=== PATIENT | female | born 1970 | race American Indian/Alaskan Native ===

== ENCOUNTER 2020-10-30 16:19 | Emergency (ER) | payer MEDICAID ==
[~2020-10-30] VITALS: Ht 157.5 cm; Wt 90.0 kg
[~2020-10-30 16:19] MED LIST: ALBU8HFA PO; ARIP2TAB5 PO; AZIT250T PO; BENZ-38 PO; CHLO118M2 PO; DIPH-423 PO; GABA100C PO; HYDR-4383 PO; HYDR30CR79 TOP; IBUP-1984 PO; ONDA4TAB6 PO; POLY17PO10 PO; QUET-1 PO; VENL25TA48 PO; ZOF4T PO
[2020-10-30] MEDS ORDERED: methylPREDNISolone sod succ 125mg/2ml vial IV ONE (16:35)
[2020-10-30] MEDS ORDERED: ipratropium/albuterol 3ml nebule NEB ONE (16:35)
[2020-10-30] MEDS ORDERED: albuterol 2.5 MG/3 ML nebule NEB ONE ×2 (16:35→17:25)
[2020-10-30 16:56] LABS: BASOPHILS # (AUTO) 0.1 X10'3 (0-0.2); BASOPHILS % (AUTO) 0.5 % (0-1); EOSINOPHILS % (AUTO) 0.4 % (0-6); HEMATOCRIT 46.9 % (35.0-45.0); HEMOGLOBIN 15.4 g/dl (12.0-16.0); LYMPHOCYTES # (AUTO) 1.3 X10'3 (1.1-4.8); LYMPHOCYTES % (AUTO) 11.6 % (21-51); MEAN CORPUSCULAR HEMOGLOBIN 31.8 PG (27.0-31.0); MEAN CORPUSCULAR HGB CONC 32.9 g/dL (33.0-36.5); MEAN CORPUSCULAR VOLUME 96.7 FL (78-98); MEAN PLATELET VOLUME 8.3 FL (7.4-10.4); MONOCYTES # (AUTO) 0.8 X10'3 (0-0.9); MONOCYTES % (AUTO) 7.3 % (2-12); NEUTROPHILS # (AUTO) 9.3 X10'3 (1.8-7.7); NEUTROPHILS % (AUTO) 80.2 % (42-75); PLATELET COUNT 248 X10'3 (140-440); RED BLOOD COUNT 4.85 X10'6 (4.20-5.60); RED CELL DISTRIBUTION WIDTH 14.8 % (11.5-14.5); WHITE BLOOD COUNT 11.5 X10'3 (4.5-11.0)
[2020-10-30 17:05] LABS: ALANINE AMINOTRANSFERASE 17 U/L (12-78); ALBUMIN/GLOBULIN RATIO 0.9 (1.1-1.5); ALKALINE PHOSPHATASE 109 IU/L (46-116); ANION GAP 5 (8-16); ASPARTATE AMINO TRANSFERASE 21 U/L (10-37); BILIRUBIN,TOTAL 0.2 MG/DL (0.1-1.0); BLOOD UREA NITROGEN 8 MG/DL (7-18); BUN/CREATININE RATIO 11.3 (6.6-38.0); CALCIUM 8.6 MG/DL (8.5-10.1); CHLORIDE 97 MMOL/L (99-107); CREATININE 0.71 MG/DL (0.40-0.90); GLUCOSE 114 MG/DL (70-104); POTASSIUM 4.4 MMOL/L (3.5-5.1); SODIUM 140 MMOL/L (135-145); TOTAL CARBON DIOXIDE 37.7 MMOL/L (24-32); TOTAL PROTEIN 8.3 G/DL (6.4-8.2); eGFR 88 ML/MIN
[2020-10-30] MEDS ORDERED: LEVO500T89 PO (20:20)
[2020-10-30] MEDS ORDERED: PRED20TA PO (20:20)
[2020-10-30] MEDS ORDERED: levoFLOXACIN 250mg tablet PO ONE (20:20)
[2020-10-30 20:41] VITALS: BP 135/81
== END 2020-10-30 20:53 | disposition home or self-care (01) ==
LOC: ER 16:20
DX: J44.1 Chronic obstructive pulmonary disease with (acute) exacerbation (principal); Z20.822 Contact with and (suspected) exposure to COVID-19; R06.02 Shortness of breath; G89.29 Other chronic pain; F31.9 Bipolar disorder, unspecified; F12.90 Cannabis use, unspecified, uncomplicated; Z87.01 Personal history of pneumonia (recurrent); Z98.890 Other specified postprocedural states; Z60.2 Problems related to living alone; Z56.0 Unemployment, unspecified; Z72.89 Other problems related to lifestyle; Z88.0 Allergy status to penicillin; Z79.2 Long term (current) use of antibiotics; Z79.899 Other long term (current) drug therapy
CPT/HCPCS: 36415; 71045; 80053; 83880; 84484; 85025; 87635; 93005; 94640; 96374; 99285; C9803; J2930; 94760

== ENCOUNTER 2021-12-17 21:58 | Emergency (ER) | payer MEDICAID ==
[~2021-12-17] VITALS: Ht 157.5 cm; Wt 73.6 kg
[2021-12-17 22:06] VITALS: BP 157/99
== END 2021-12-18 00:05 | disposition left against medical advice (07) ==
LOC: ER 21:58
DX: R06.02 Shortness of breath (principal); Z53.21 Procedure and treatment not carried out due to patient leaving prior to being seen by health care provider

== ENCOUNTER 2022-03-12 18:15 | Emergency (ER) | payer MEDICAID ==
[~2022-03-12] VITALS: Ht 157.5 cm; Wt 72.7 kg
[2022-03-12 18:38] VITALS: BP 152/87
== END 2022-03-12 20:15 | disposition left against medical advice (07) ==
LOC: ER 18:15
DX: M25.512 Pain in left shoulder (principal); Z53.21 Procedure and treatment not carried out due to patient leaving prior to being seen by health care provider
CPT/HCPCS: 73030

== ENCOUNTER 2022-04-11 22:42 | Emergency (ER) | payer MEDICAID ==
[~2022-04-11] VITALS: Ht 157.5 cm; Wt 72.3 kg
[2022-04-11 23:26] LABS: BASOPHILS # (AUTO) 0.1 X10'3 (0-0.2); BASOPHILS % (AUTO) 0.4 % (0-1); EOSINOPHILS # (AUTO) 0.1 X10'3 (0-0.9); EOSINOPHILS % (AUTO) 0.5 % (0-6); HEMATOCRIT 43.2 % (35.0-45.0); HEMOGLOBIN 14.6 g/dl (12.0-16.0); LYMPHOCYTES # (AUTO) 2.5 X10'3 (1.1-4.8); LYMPHOCYTES % (AUTO) 15.2 % (21-51); MEAN CORPUSCULAR HGB CONC 33.8 g/dL (33.0-36.5); MEAN CORPUSCULAR VOLUME 88.5 FL (78-98); MEAN PLATELET VOLUME 9.1 FL (7.4-10.4); MONOCYTES # (AUTO) 1.2 X10'3 (0-0.9); MONOCYTES % (AUTO) 7.1 % (2-12); NEUTROPHILS # (AUTO) 12.5 X10'3 (1.8-7.7); NEUTROPHILS % (AUTO) 76.8 % (42-75); PLATELET COUNT 261 X10'3 (140-440); RED BLOOD COUNT 4.88 X10'6 (4.20-5.60); RED CELL DISTRIBUTION WIDTH 14.2 % (11.5-14.5); WHITE BLOOD COUNT 16.2 X10'3 (4.5-11.0)
[2022-04-12 00:28] LABS: ALANINE AMINOTRANSFERASE 24 U/L (12-78); ALBUMIN 2.8 G/DL (3.4-5.0); ALBUMIN/GLOBULIN RATIO 0.5 (1.1-1.5); ALKALINE PHOSPHATASE 100 IU/L (46-116); ANION GAP 9 (8-16); ASPARTATE AMINO TRANSFERASE 19 U/L (10-37); BILIRUBIN,TOTAL 0.2 MG/DL (0.1-1.0); BLOOD UREA NITROGEN 7 MG/DL (7-18); BUN/CREATININE RATIO 12.5 (6.6-38.0); CALCIUM 9.9 MG/DL (8.5-10.1); CHLORIDE 100 MMOL/L (99-107); CREATININE 0.56 MG/DL (0.40-0.90); GLUCOSE 106 MG/DL (70-104); POTASSIUM 3.7 MMOL/L (3.5-5.1); SODIUM 144 MMOL/L (135-145); TOTAL CARBON DIOXIDE 34.9 MMOL/L (24-32); TOTAL PROTEIN 8.1 G/DL (6.4-8.2); eGFR > 90 ML/MIN
[2022-04-12] MEDS ORDERED: albuterol 2.5 MG/3 ML nebule CONTNEB STA (00:44)
[2022-04-12] MEDS ORDERED: CefTRIAXone/D5W-Rocephin 1gm 50 ML IV ONE (00:45)
[2022-04-12] MEDS ORDERED: normal saline 1000ML IV soln IVB ONE (00:45)
[2022-04-12] MEDS ORDERED: methylPREDNISolone sod succ 125mg/2ml vial IV ONE (00:45)
[2022-04-12] MEDS ORDERED: ipratropium 0.5 MG/2.5ML nebule IH ONE (00:45)
[2022-04-12] MEDS ORDERED: iohexol 350MG/ML 100ml bottle IV ONE (03:47)
[2022-04-12] MEDS ORDERED: AMOX-117 PO ×2 (05:07)
[2022-04-12] MEDS ORDERED: amox tr/potassium clavulanate 875/125mg TAB PO ONE (05:10)
[2022-04-12] MEDS ORDERED: LEVO750T68 PO ×4 (05:12→05:31)
[2022-04-12 05:19] VITALS: BP 127/82
== END 2022-04-12 05:44 | disposition home or self-care (01) ==
LOC: ER 22:43
DX: J44.1 Chronic obstructive pulmonary disease with (acute) exacerbation (principal); J18.9 Pneumonia, unspecified organism; R06.02 Shortness of breath; R09.81 Nasal congestion; R05.9 Cough, unspecified; G89.29 Other chronic pain; F31.9 Bipolar disorder, unspecified; F17.200 Nicotine dependence, unspecified, uncomplicated; F12.90 Cannabis use, unspecified, uncomplicated; Z87.01 Personal history of pneumonia (recurrent); Z98.890 Other specified postprocedural states; Z72.89 Other problems related to lifestyle; Z60.2 Problems related to living alone; Z56.0 Unemployment, unspecified; Z88.0 Allergy status to penicillin; Z79.2 Long term (current) use of antibiotics; Z79.899 Other long term (current) drug therapy
CPT/HCPCS: 36415; 71045; 71275; 80053; 83605; 84484; 85025; 85379; 93005; 94640; 94644; 96365; 96375; 99285; J0696; J2930; J3490; J7030; Q9967; 94760; A7015

== ENCOUNTER 2022-04-20 00:55 | Inpatient (IN) | payer MEDICAID ==
[~2022-04-20] VITALS: Ht 157.5 cm; Wt 72.3 kg
[~2022-04-20 00:55] MED LIST changes: +LEVO750T68 PO
--- NOTE | 2022-04-20 04:00 | NUR ---
pt to rm at 0345, rec report from triage nurse and assumed care of pt. Pt diaphoretic, c/o left intermittent chest pain x 2 days with nausea and SOB. Pt rec dx with pneumonia and reports not feeling better dispite antibiotics. resp 32, spo2 96% 4L via NC, abd breathing, tripod position, wheezing throughout lung gonsalves. ER MD at bedside, EKG obtained, PIV placed to right forearm and blood drawn
[2022-04-20 04:29] LABS: BASOPHILS # (AUTO) 0.2 X10'3 (0-0.2); BASOPHILS % (AUTO) 0.8 % (0-1); EOSINOPHILS # (AUTO) 0.1 X10'3 (0-0.9); EOSINOPHILS % (AUTO) 0.4 % (0-6); HEMATOCRIT 42.7 % (35.0-45.0); HEMOGLOBIN 13.7 g/dl (12.0-16.0); LYMPHOCYTES # (AUTO) 2.3 X10'3 (1.1-4.8); LYMPHOCYTES % (AUTO) 10.5 % (21-51); MEAN CORPUSCULAR HEMOGLOBIN 29.3 PG (27.0-31.0); MEAN CORPUSCULAR HGB CONC 32.2 g/dL (33.0-36.5); MEAN CORPUSCULAR VOLUME 90.8 FL (78-98); MEAN PLATELET VOLUME 8.6 FL (7.4-10.4); MONOCYTES % (AUTO) 4.4 % (2-12); NEUTROPHILS # (AUTO) 18.6 X10'3 (1.8-7.7); NEUTROPHILS % (AUTO) 83.9 % (42-75); PLATELET COUNT 331 X10'3 (140-440); RED CELL DISTRIBUTION WIDTH 14.3 % (11.5-14.5); WHITE BLOOD COUNT 22.2 X10'3 (4.5-11.0)
[2022-04-20] MEDS ORDERED: normal saline 1000ml 1,000 ML IV ONE (04:35)
[2022-04-20 04:55] LABS: ALANINE AMINOTRANSFERASE 20 U/L (12-78); ALBUMIN 3.1 G/DL (3.4-5.0); ALBUMIN/GLOBULIN RATIO 0.7 (1.1-1.5); ALKALINE PHOSPHATASE 89 IU/L (46-116); ANION GAP 2 (8-16); ASPARTATE AMINO TRANSFERASE 17 U/L (10-37); BILIRUBIN,TOTAL 0.2 MG/DL (0.1-1.0); BLOOD UREA NITROGEN 11 MG/DL (7-18); BUN/CREATININE RATIO 22.9 (6.6-38.0); CALCIUM 9.6 MG/DL (8.5-10.1); CHLORIDE 97 MMOL/L (99-107); CREATININE 0.48 MG/DL (0.40-0.90); GLUCOSE 112 MG/DL (70-104); SODIUM 142 MMOL/L (135-145); TOTAL PROTEIN 7.6 G/DL (6.4-8.2); eGFR > 90 ML/MIN
[2022-04-20 04:58] LABS: POTASSIUM 4.6 MMOL/L (3.5-5.1); TOTAL CARBON DIOXIDE 43.5 MMOL/L (24-32)
[2022-04-20] MEDS ORDERED: ipratropium/albuterol 3ml nebule NEB ONE (05:00)
[2022-04-20] MEDS ORDERED: albuterol 2.5 MG/3 ML nebule NEB ONE (05:00)
[2022-04-20 05:27] LABS: ABG BASE EXCESS 9.5 mmol/L (-2.0-2.0); ABG HCO3 40.8 mmol/L (22.0-26.0); ABG OXYGEN SATURATION 94.3 % (94-97); ABG PCO2 (T) 94.8 mmHg (32.0-45.0); ABG PO2 (T) 77.9 mmHg (75.0-100.0); ALLEN'S TEST POSITIVE; FCOHb 2.6 % (0.0-3.9); FMetHb 0.1 % (0.0-1.5); FO2Hb 91.8 % (94-97); TOTAL HEMOGLOBIN 14.2 G/dl (12.0-16.0)
[2022-04-20] MEDS ORDERED: levoFLOXACIN-Levaquin 750MG/D5 150 ML IV STA (05:42)
[2022-04-20] MEDS ORDERED: methylPREDNISolone sod succ 125mg/2ml vial IV ONE (10:25)
[2022-04-20] MEDS ORDERED: acetaminophen 325mg tablet PO PRN (10:25)
[2022-04-20] MEDS ORDERED: potassium Cl 40MEQ/1/2NS 520ml 520 ML IV PRN (10:25)
[2022-04-20] MEDS ORDERED: normal saline 1000ml 1,000 ML IV SCH (10:25)
[2022-04-20] MEDS ORDERED: magnesium hydroxide 30ml (MOM) UD suspension PO PRN (10:25)
[2022-04-20] MEDS ORDERED: magnesium 4gm in 100ml NS 100 ML IV PRN (10:25)
[2022-04-20] MEDS ORDERED: potassium Cl 20 mEq SR tablet PO PRN ×2 (10:25)
[2022-04-20] MEDS ORDERED: magnesium Cl slow-release 64mg tablet PO PRN (10:25)
[2022-04-20 10:42] LABS: MAGNESIUM 2.1 MG/DL (1.5-2.4)
[2022-04-20] MEDS ORDERED: ALBU17AE26 NEB (11:05)
[2022-04-20] MEDS ORDERED: DULO60CA65 (11:05)
[2022-04-20] MEDS ORDERED: IPRA3AMP31 NEB (11:05)
[2022-04-20] MEDS ORDERED: LEVO200T8 PO (11:05)
[2022-04-20] MEDS ORDERED: CHOL500050 PO (11:05)
[2022-04-20] MEDS ORDERED: IBUP-1985 PO (11:05)
[2022-04-20] MEDS: ipratropium/albuterol 3ml nebule NEB SCH ×4 (11:48→22:48)
--- NOTE | 2022-04-20 14:16 | NUR ---
PT HAS GIVEN PERMISSION FOR HER SISTER, JACQUES MCDONNELL, TO RECEIVED INFORMATION REGARDING PT STATUS DURING HER CURRENT HOSPITAL STAY
[2022-04-20] MEDS: enoxaparin 30mg/0.3ml syringe SQ SCH (19:13)
[2022-04-20] MEDS: methylPREDNISolone sod succ 125mg/2ml vial IV SCH (19:13)
[2022-04-20] MEDS: docusate sod 100mg capsule PO SCH (19:14)
[2022-04-20] MEDS: K and/or MAG REPLACEMENT MC SCH (19:14)
[2022-04-21] MEDS: ipratropium/albuterol 3ml nebule NEB SCH ×6 (02:43→23:12)
[2022-04-21 02:58] LABS: ALBUMIN 2.8 G/DL (3.4-5.0); ANION GAP -2 (8-16); BLOOD UREA NITROGEN 20 MG/DL (7-18); BUN/CREATININE RATIO 32.3 (6.6-38.0); CALCIUM 9.2 MG/DL (8.5-10.1); CHLORIDE 96 MMOL/L (99-107); CREATININE 0.62 MG/DL (0.40-0.90); GLUCOSE 123 MG/DL (70-104); MAGNESIUM 1.9 MG/DL (1.5-2.4); POTASSIUM 4.3 MMOL/L (3.5-5.1); SODIUM 136 MMOL/L (135-145); eGFR > 90 ML/MIN
[2022-04-21 03:00] LABS: TOTAL CARBON DIOXIDE 41.9 MMOL/L (24-32)
[2022-04-21 03:31] LABS: BASOPHILS % (AUTO) 0.5 % (0-1); EOSINOPHILS % (AUTO) 0 % (0-6); HEMATOCRIT 36.9 % (35.0-45.0); LYMPHOCYTES # (AUTO) 0.6 X10'3 (1.1-4.8); LYMPHOCYTES % (AUTO) 5.9 % (21-51); MEAN CORPUSCULAR HEMOGLOBIN 29.4 PG (27.0-31.0); MEAN CORPUSCULAR HGB CONC 32.7 g/dL (33.0-36.5); MEAN CORPUSCULAR VOLUME 90.2 FL (78-98); MEAN PLATELET VOLUME 9.1 FL (7.4-10.4); MONOCYTES # (AUTO) 0.2 X10'3 (0-0.9); MONOCYTES % (AUTO) 1.7 % (2-12); NEUTROPHILS # (AUTO) 9.3 X10'3 (1.8-7.7); NEUTROPHILS % (AUTO) 91.9 % (42-75); PLATELET COUNT 302 X10'3 (140-440); RED BLOOD COUNT 4.09 X10'6 (4.20-5.60); WHITE BLOOD COUNT 10.1 X10'3 (4.5-11.0)
[2022-04-21 07:15] VITALS: BP 139/89
[2022-04-21] MEDS: K and/or MAG REPLACEMENT MC SCH ×2 (08:00→19:14)
[2022-04-21] MEDS: docusate sod 100mg capsule PO SCH ×2 (09:26→19:29)
[2022-04-21] MEDS: methylPREDNISolone sod succ 125mg/2ml vial IV SCH ×2 (09:26→19:29)
[2022-04-21] MEDS: levoFLOXACIN-Levaquin 750MG/D5 150 ML IV SCH (09:26)
[2022-04-21] MEDS: enoxaparin 30mg/0.3ml syringe SQ SCH ×2 (09:27→19:30)
[2022-04-21 10:46] LABS: ABG BASE EXCESS 15.7 mmol/L (-2.0-2.0); ABG HCO3 43.3 mmol/L (22.0-26.0); ABG OXYGEN SATURATION 95.7 % (94-97); ABG PCO2 (T) 66.9 mmHg (32.0-45.0); ALLEN'S TEST POSITIVE; FCOHb 0.3 % (0.0-3.9); FLOW 4 L/min; FMetHb 0.3 % (0.0-1.5); FO2Hb 95.1 % (94-97); TOTAL HEMOGLOBIN 13.2 G/dl (12.0-16.0)
[2022-04-21 11:00] VITALS: BP 107/68
[2022-04-21 15:00] VITALS: BP 133/85
[2022-04-21 18:00] VITALS: BP 118/78
[2022-04-21 22:00] VITALS: BP 129/86
--- NOTE | 2022-04-22 01:01 | NUR ---
Pt. is awake alert oriented inspiratory wheezes audible.RT in to give breathing Tx. Pt. is able to describe events of the day. Able to pivot to BSC with assistance states is constipated prune juice and laxative given. Placed on BIPAP overnight tolerating in 2 hour increments. No c/o pain.
[2022-04-22 02:37] VITALS: BP 119/81
[2022-04-22] MEDS: ondansetron/PF 4mg/2ml inj IV PRN (02:45)
[2022-04-22] MEDS: mag hydrox/Alum hydrox/simeth 30ml oral suspension PO PRN (02:45)
[2022-04-22] MEDS: ipratropium/albuterol 3ml nebule NEB SCH ×6 (02:45→23:37)
[2022-04-22 07:00] VITALS: BP 117/72
[2022-04-22 08:41] LABS: HEMOGLOBIN 13.4 g/dl (12.0-16.0); RED BLOOD COUNT 4.51 X10'6 (4.20-5.60); WHITE BLOOD COUNT 15.8 X10'3 (4.5-11.0)
[2022-04-22 08:42] LABS: BASOPHILS # (AUTO) 0.1 X10'3 (0-0.2); BASOPHILS % (AUTO) 0.6 % (0-1); EOSINOPHILS % (AUTO) 0.1 % (0-6); HEMATOCRIT 40.4 % (35.0-45.0); LYMPHOCYTES # (AUTO) 1.1 X10'3 (1.1-4.8); MEAN CORPUSCULAR HEMOGLOBIN 29.6 PG (27.0-31.0); MEAN CORPUSCULAR VOLUME 89.7 FL (78-98); MEAN PLATELET VOLUME 8.3 FL (7.4-10.4); MONOCYTES # (AUTO) 0.4 X10'3 (0-0.9); MONOCYTES % (AUTO) 2.5 % (2-12); NEUTROPHILS # (AUTO) 14.2 X10'3 (1.8-7.7); NEUTROPHILS % (AUTO) 89.8 % (42-75); PLATELET COUNT 324 X10'3 (140-440); RED CELL DISTRIBUTION WIDTH 14.9 % (11.5-14.5)
[2022-04-22 08:48] LABS: ANION GAP 5 (8-16); BLOOD UREA NITROGEN 17 MG/DL (7-18); BUN/CREATININE RATIO 28.3 (6.6-38.0); CHLORIDE 96 MMOL/L (99-107); GLUCOSE 107 MG/DL (70-104); POTASSIUM 4.4 MMOL/L (3.5-5.1); SODIUM 135 MMOL/L (135-145); eGFR > 90 ML/MIN
[2022-04-22 08:49] LABS: ALBUMIN 3.1 G/DL (3.4-5.0); CALCIUM 9.5 MG/DL (8.5-10.1); MAGNESIUM 2.3 MG/DL (1.5-2.4)
[2022-04-22] MEDS: methylPREDNISolone sod succ 125mg/2ml vial IV SCH ×2 (09:09→19:18)
[2022-04-22] MEDS: enoxaparin 30mg/0.3ml syringe SQ SCH ×2 (09:10→19:22)
[2022-04-22] MEDS: docusate sod 100mg capsule PO SCH ×2 (09:10→19:18)
[2022-04-22] MEDS: levoFLOXACIN-Levaquin 750MG/D5 150 ML IV SCH (09:11)
[2022-04-22 11:00] VITALS: BP 101/62
[2022-04-22 15:00] VITALS: BP 105/78
[2022-04-22 18:00] VITALS: BP 117/72
[2022-04-22] MEDS: K and/or MAG REPLACEMENT MC SCH (20:00)
[2022-04-22 22:00] VITALS: BP 115/74
--- NOTE | 2022-04-22 23:56 | NUR ---
Pt. is awake alert oriented no c/o Resp distress today. Sitting up in chair, had bath and hair wash. Ready for home.
[2022-04-23 02:39] VITALS: BP 106/67
[2022-04-23] MEDS: ipratropium/albuterol 3ml nebule NEB SCH ×3 (03:32→11:46)
[2022-04-23] MEDS: mag hydrox/Alum hydrox/simeth 30ml oral suspension PO PRN (05:50)
[2022-04-23] MEDS: ondansetron/PF 4mg/2ml inj IV PRN (05:51)
[2022-04-23 06:00] VITALS: BP 95/56
[2022-04-23 07:02] LABS: BASOPHILS % (AUTO) 0.1 % (0-1); EOSINOPHILS % (AUTO) 0 % (0-6); HEMATOCRIT 38.6 % (35.0-45.0); HEMOGLOBIN 12.7 g/dl (12.0-16.0); LYMPHOCYTES % (AUTO) 14.5 % (21-51); MEAN CORPUSCULAR HEMOGLOBIN 29.3 PG (27.0-31.0); MEAN CORPUSCULAR HGB CONC 32.9 g/dL (33.0-36.5); MEAN CORPUSCULAR VOLUME 89.2 FL (78-98); MEAN PLATELET VOLUME 8.4 FL (7.4-10.4); MONOCYTES # (AUTO) 0.7 X10'3 (0-0.9); MONOCYTES % (AUTO) 4.9 % (2-12); NEUTROPHILS # (AUTO) 10.9 X10'3 (1.8-7.7); NEUTROPHILS % (AUTO) 80.5 % (42-75); PLATELET COUNT 325 X10'3 (140-440); RED BLOOD COUNT 4.32 X10'6 (4.20-5.60); RED CELL DISTRIBUTION WIDTH 14.5 % (11.5-14.5); WHITE BLOOD COUNT 13.6 X10'3 (4.5-11.0)
[2022-04-23] MEDS: K and/or MAG REPLACEMENT MC SCH (08:00)
[2022-04-23] MEDS: docusate sod 100mg capsule PO SCH (08:15)
[2022-04-23] MEDS: levoFLOXACIN-Levaquin 750MG/D5 150 ML IV SCH (08:16)
[2022-04-23] MEDS: methylPREDNISolone sod succ 125mg/2ml vial IV SCH (08:16)
[2022-04-23] MEDS: enoxaparin 30mg/0.3ml syringe SQ SCH (08:17)
[2022-04-23 08:18] LABS: ALBUMIN 2.5 G/DL (3.4-5.0); ANION GAP 5 (8-16); BLOOD UREA NITROGEN 16 MG/DL (7-18); BUN/CREATININE RATIO 26.2 (6.6-38.0); CALCIUM 9.2 MG/DL (8.5-10.1); CHLORIDE 98 MMOL/L (99-107); CREATININE 0.61 MG/DL (0.40-0.90); GLUCOSE 99 MG/DL (70-104); MAGNESIUM 2.1 MG/DL (1.5-2.4); POTASSIUM 4.4 MMOL/L (3.5-5.1); SODIUM 136 MMOL/L (135-145); TOTAL CARBON DIOXIDE 33.3 MMOL/L (24-32); eGFR > 90 ML/MIN
[2022-04-23] MEDS ORDERED: PRED10TA23 PO (10:26)
[2022-04-23] MEDS ORDERED: LEVO750T68 PO (10:26)
--- NOTE | 2022-04-23 13:57 | NUR ---
PATIENT DISCHARGED HOME WITH FAMILY. D/C INSTRUCTION GIVEN AND PATIENT VERBALIZED UNDERSTANDING.
== END 2022-04-23 13:45 | disposition home health service (06) | DRG 720 ==
LOC: ER 00:56 → ED HOLD 10:28 → EDBEDREQ 21:06 → PCU 3S 04-21 07:10
PROVIDERS: ADMIT Family Medicine; ATTEND Family Medicine
PROC: 5A09357 Assistance with Respiratory Ventilation, Less than 24 Consecutive Hours, Continuous Positive Airway Pressure (ICD-10-PCS; principal; 2022-04-20)
PROC: 5A09357 Assistance with Respiratory Ventilation, Less than 24 Consecutive Hours, Continuous Positive Airway Pressure (ICD-10-PCS; 2022-04-21)
DX: A41.9 Sepsis, unspecified organism (principal); J96.02 Acute respiratory failure with hypercapnia; E87.29 Other acidosis; J18.9 Pneumonia, unspecified organism; J44.0 Chronic obstructive pulmonary disease with (acute) lower respiratory infection; E03.9 Hypothyroidism, unspecified; K59.00 Constipation, unspecified; F31.9 Bipolar disorder, unspecified; Z60.2 Problems related to living alone; Z20.822 Contact with and (suspected) exposure to COVID-19; G47.30 Sleep apnea, unspecified; G89.29 Other chronic pain; M54.9 Dorsalgia, unspecified; F17.210 Nicotine dependence, cigarettes, uncomplicated; J44.1 Chronic obstructive pulmonary disease with (acute) exacerbation; Z88.0 Allergy status to penicillin; Z56.0 Unemployment, unspecified; Z79.899 Other long term (current) drug therapy; Z90.49 Acquired absence of other specified parts of digestive tract; Z71.6 Tobacco abuse counseling
CPT/HCPCS: 36415; 36600; 71045; 80048; 80053; 82803; 83605; 83735; 83880; 84145; 84484; 85018; 85025; 87040; 87502; 87503; 87635; 93005; 94640; 94660; 94760; 96361; 96365; 97116; 97161; 99285; A4615; C9803; G0378; J1650; J1956; J2405; J2930; J7030

== ENCOUNTER 2022-05-08 15:37 | Emergency (ER) | payer MEDICAID ==
[~2022-05-08] VITALS: Ht 157.5 cm; Wt 72.3 kg
[~2022-05-08 15:37] MED LIST changes: +ALBU17AE26 NEB; -ALBU8HFA PO; -ARIP2TAB5 PO; -AZIT250T PO; -BENZ-38 PO; -CHLO118M2 PO; +CHOL500050 PO; -DIPH-423 PO; +DULO60CA65; -GABA100C PO; -HYDR-4383 PO; -HYDR30CR79 TOP; -IBUP-1984 PO; +IBUP-1985 PO; +IPRA3AMP31 NEB; +LEVO200T8 PO; -LEVO750T68 PO; -ONDA4TAB6 PO; -POLY17PO10 PO; +PRED10TA23 PO; -QUET-1 PO; -VENL25TA48 PO; -ZOF4T PO
[2022-05-08 15:42] VITALS: BP 107/70
[2022-05-08 17:15] LABS: URINE HCG NEGATIVE (NEG)
[2022-05-08 17:27] LABS: CLARITY,URINE CLOUDY (Clear); COLOR,URINE YELLOW (Yellow); GLUCOSE, URINE NEGATIVE (Neg); KETONES,URINE NEGATIVE (Neg); LEUKOCYTE ESTERASE ,URINE SMALL (Neg); NITRITES, URINE NEGATIVE (Neg); OCCULT BLOOD,URINE MODERATE (Neg); PROTEIN,URINE NEGATIVE (Neg); UROBILINOGEN,URINE 0.2 E.U/dL (0.2-1.0)
[2022-05-08 17:34] LABS: UA COLLECTION TYPE NON-SPECIFIED
[2022-05-08 17:37] LABS: BACTERIA,URINE 2+ /HPF (Neg); MUCUS STRANDS MODERATE /LPF (Neg); SQUAMOUS EPITHELIAL CELL,UR MANY /LPF (FEW); WBC,URINE 0-4 /HPF (0-4)
[2022-05-08 19:06] LABS: CLARITY,URINE CLEAR (Clear); COLOR,URINE YELLOW (Yellow); GLUCOSE, URINE NEGATIVE (Neg); KETONES,URINE NEGATIVE (Neg); LEUKOCYTE ESTERASE ,URINE NEGATIVE (Neg); NITRITES, URINE NEGATIVE (Neg); OCCULT BLOOD,URINE TRACE-INTACT (Neg); PROTEIN,URINE NEGATIVE (Neg); UROBILINOGEN,URINE 0.2 E.U/dL (0.2-1.0)
[2022-05-08 19:23] LABS: UA COLLECTION TYPE FOLEY CATH
[2022-05-08 19:32] LABS: SQUAMOUS EPITHELIAL CELL,UR FEW /LPF (FEW)
[2022-05-08 19:33] LABS: BACTERIA,URINE NONE SEEN /HPF (Neg); RBC,URINE 0-2 /HPF (0-2); WBC,URINE 0-4 /HPF (0-4)
[2022-05-08 19:35] LABS: CAL OXALATE CRYSTALS FEW /HPF (NEGATIVE)
[2022-05-08] MEDS ORDERED: bisacodyl 10mg suppository rectal RC STA (20:16)
[2022-05-08] MEDS ORDERED: magnesium hydroxide 30ml (MOM) UD suspension PO ONE (20:20)
[2022-05-08] MEDS ORDERED: normal saline 1000ML IV soln IVB ONE (20:25)
--- NOTE | 2022-05-08 21:28 | NUR ---
PT REPORTS HAVING A SMALL BOWEL MOVEMENT
== END 2022-05-08 22:33 | disposition home or self-care (01) ==
LOC: ER 15:38
DX: R33.9 Retention of urine, unspecified (principal); K59.00 Constipation, unspecified; K64.9 Unspecified hemorrhoids; J44.9 Chronic obstructive pulmonary disease, unspecified; G89.29 Other chronic pain; F31.9 Bipolar disorder, unspecified; F17.200 Nicotine dependence, unspecified, uncomplicated; F12.90 Cannabis use, unspecified, uncomplicated; Z87.01 Personal history of pneumonia (recurrent); Z72.89 Other problems related to lifestyle; Z60.2 Problems related to living alone; Z56.0 Unemployment, unspecified; Z88.0 Allergy status to penicillin; Z79.899 Other long term (current) drug therapy
CPT/HCPCS: 51702; 74018; 81001; 81025; 96360; 99284; J7030

== ENCOUNTER 2022-05-10 00:57 | Emergency (ER) | payer MEDICAID ==
[~2022-05-10] VITALS: Ht 157.5 cm; Wt 72.3 kg
[~2022-05-10 00:57] MED LIST changes: -DULO60CA65; +DULO60CA65 PO
[2022-05-10 01:34] LABS: CLARITY,URINE CLEAR (Clear); COLOR,URINE YELLOW (Yellow); GLUCOSE, URINE NEGATIVE (Neg); KETONES,URINE NEGATIVE (Neg); LEUKOCYTE ESTERASE ,URINE NEGATIVE (Neg); NITRITES, URINE NEGATIVE (Neg); OCCULT BLOOD,URINE NEGATIVE (Neg); PH,URINE 6.5 (4.8-8.0); PROTEIN,URINE NEGATIVE (Neg); UROBILINOGEN,URINE 0.2 E.U/dL (0.2-1.0)
[2022-05-10 01:36] LABS: UA COLLECTION TYPE FOLEY CATH
[2022-05-10 01:43] LABS: URINE HCG NEGATIVE (NEG)
[2022-05-10 02:10] LABS: BASOPHILS # (AUTO) 0.1 X10'3 (0-0.2); BASOPHILS % (AUTO) 0.4 % (0-1); EOSINOPHILS # (AUTO) 0.2 X10'3 (0-0.9); EOSINOPHILS % (AUTO) 1.7 % (0-6); HEMATOCRIT 34.2 % (35.0-45.0); LYMPHOCYTES # (AUTO) 1.9 X10'3 (1.1-4.8); LYMPHOCYTES % (AUTO) 13.3 % (21-51); MEAN CORPUSCULAR HEMOGLOBIN 29.4 PG (27.0-31.0); MEAN CORPUSCULAR HGB CONC 32.3 g/dL (33.0-36.5); MEAN CORPUSCULAR VOLUME 91.1 FL (78-98); MEAN PLATELET VOLUME 7.7 FL (7.4-10.4); MONOCYTES # (AUTO) 0.8 X10'3 (0-0.9); MONOCYTES % (AUTO) 5.4 % (2-12); NEUTROPHILS # (AUTO) 11.3 X10'3 (1.8-7.7); NEUTROPHILS % (AUTO) 79.2 % (42-75); PLATELET COUNT 260 X10'3 (140-440); RED BLOOD COUNT 3.75 X10'6 (4.20-5.60); WHITE BLOOD COUNT 14.3 X10'3 (4.5-11.0)
[2022-05-10 02:21] LABS: APTT 29 SECONDS (22-32)
[2022-05-10 02:31] LABS: ALANINE AMINOTRANSFERASE 17 U/L (12-78); ALBUMIN 2.7 G/DL (3.4-5.0); ALBUMIN/GLOBULIN RATIO 0.7 (1.1-1.5); ALKALINE PHOSPHATASE 74 IU/L (46-116); ANION GAP 2 (8-16); ASPARTATE AMINO TRANSFERASE 21 U/L (10-37); BILIRUBIN,TOTAL 0.2 MG/DL (0.1-1.0); BLOOD UREA NITROGEN 14 MG/DL (7-18); BUN/CREATININE RATIO 26.9 (6.6-38.0); CALCIUM 8.4 MG/DL (8.5-10.1); CHLORIDE 99 MMOL/L (99-107); CREATININE 0.52 MG/DL (0.40-0.90); GLUCOSE 100 MG/DL (70-104); MAGNESIUM 2.1 MG/DL (1.5-2.4); POTASSIUM 3.7 MMOL/L (3.5-5.1); SODIUM 135 MMOL/L (135-145); TOTAL CARBON DIOXIDE 33.6 MMOL/L (24-32); TOTAL PROTEIN 6.5 G/DL (6.4-8.2); eGFR > 90 ML/MIN
[2022-05-10] MEDS ORDERED: iohexol 300mg/ml 100ml inj. ONE (04:08)
[2022-05-10 05:56] VITALS: BP 123/87
[2022-05-10] MEDS ORDERED: MAGN296S PO ×2 (06:01)
[2022-05-10] MEDS ORDERED: LACT10SO3 PO ×2 (06:01)
--- NOTE | 2022-05-10 06:29 | NUR ---
iv dc'd pt being discharged. dressing applied pt going home with quarles inplace. quarles cath care education given. pt understood with return demo
== END 2022-05-10 06:31 | disposition home or self-care (01) ==
LOC: ER 00:57
DX: K59.00 Constipation, unspecified (principal); R33.9 Retention of urine, unspecified; R06.02 Shortness of breath; J18.9 Pneumonia, unspecified organism; J44.9 Chronic obstructive pulmonary disease, unspecified; G89.29 Other chronic pain; M54.50 Low back pain, unspecified; F31.9 Bipolar disorder, unspecified; F17.200 Nicotine dependence, unspecified, uncomplicated; Z88.0 Allergy status to penicillin; Z56.0 Unemployment, unspecified
CPT/HCPCS: 36415; 51702; 71045; 74177; 80053; 81003; 81025; 83735; 83880; 84484; 85025; 85610; 85730; 93005; 99285; J3490; Q9967

== ENCOUNTER 2022-05-13 02:35 | Inpatient (IN) | payer MEDICAID ==
[~2022-05-13] VITALS: Ht 157.5 cm; Wt 68.6 kg
[~2022-05-13 02:35] MED LIST changes: +LACT10SO3 PO; +MAGN296S89 PO
[2022-05-13 03:26] LABS: BASOPHILS # (AUTO) 0.1 X10'3 (0-0.2); BASOPHILS % (AUTO) 0.6 % (0-1); EOSINOPHILS # (AUTO) 0.3 X10'3 (0-0.9); EOSINOPHILS % (AUTO) 1.5 % (0-6); HEMATOCRIT 32.7 % (35.0-45.0); HEMOGLOBIN 10.5 g/dl (12.0-16.0); LYMPHOCYTES # (AUTO) 2.4 X10'3 (1.1-4.8); MEAN CORPUSCULAR HEMOGLOBIN 29.2 PG (27.0-31.0); MEAN CORPUSCULAR HGB CONC 32.2 g/dL (33.0-36.5); MEAN CORPUSCULAR VOLUME 90.6 FL (78-98); MEAN PLATELET VOLUME 7.5 FL (7.4-10.4); MONOCYTES # (AUTO) 1.1 X10'3 (0-0.9); MONOCYTES % (AUTO) 6.1 % (2-12); NEUTROPHILS # (AUTO) 14.3 X10'3 (1.8-7.7); NEUTROPHILS % (AUTO) 78.8 % (42-75); PLATELET COUNT 291 X10'3 (140-440); RED BLOOD COUNT 3.61 X10'6 (4.20-5.60); RED CELL DISTRIBUTION WIDTH 16.4 % (11.5-14.5); WHITE BLOOD COUNT 18.1 X10'3 (4.5-11.0)
[2022-05-13 03:29] LABS: URINE HCG NEGATIVE (NEG)
[2022-05-13 03:34] LABS: CLARITY,URINE CLOUDY (Clear); COLOR,URINE YELLOW (Yellow); GLUCOSE, URINE NEGATIVE (Neg); KETONES,URINE 15 mg/dl (Neg); LEUKOCYTE ESTERASE ,URINE TRACE (Neg); NITRITES, URINE POSITIVE (Neg); OCCULT BLOOD,URINE LARGE (Neg); PH,URINE 6.5 (4.8-8.0); PROTEIN,URINE 100 mg/dl (Neg)
[2022-05-13 03:39] LABS: ALANINE AMINOTRANSFERASE 24 U/L (12-78); ALBUMIN 2.7 G/DL (3.4-5.0); ALBUMIN/GLOBULIN RATIO 0.7 (1.1-1.5); ALKALINE PHOSPHATASE 89 IU/L (46-116); ANION GAP 10 (8-16); ASPARTATE AMINO TRANSFERASE 18 U/L (10-37); BILIRUBIN,TOTAL 0.2 MG/DL (0.1-1.0); BLOOD UREA NITROGEN 21 MG/DL (7-18); BUN/CREATININE RATIO 30.9 (6.6-38.0); CALCIUM 8.7 MG/DL (8.5-10.1); CHLORIDE 98 MMOL/L (99-107); CREATININE 0.68 MG/DL (0.40-0.90); GLUCOSE 123 MG/DL (70-104); LIPASE 95 U/L (73-393); POTASSIUM 3.8 MMOL/L (3.5-5.1); SODIUM 134 MMOL/L (135-145); TOTAL CARBON DIOXIDE 25.8 MMOL/L (24-32); TOTAL PROTEIN 6.7 G/DL (6.4-8.2); eGFR > 90 ML/MIN
[2022-05-13 03:42] LABS: UA COLLECTION TYPE FOLEY CATH
[2022-05-13 03:44] LABS: BACTERIA,URINE 2+ /HPF (Neg); RBC,URINE TNTC /HPF (0-2); SQUAMOUS EPITHELIAL CELL,UR FEW /LPF (FEW); WBC,URINE 20-30 /HPF (0-4)
[2022-05-13] MEDS ORDERED: normal saline 1000ml 1,000 ML IV ONE (04:05)
[2022-05-13] MEDS ORDERED: CefTRIAXone 2gm/D5W 50ml BAG 50 ML IV ONE (04:05)
[2022-05-13] MEDS ORDERED: ondansetron/PF 4mg/2ml inj IV ONE (04:05)
[2022-05-13] MEDS ORDERED: fentaNYL/PF 50MCG/1 ML 2ML syringe IV ONE (04:20)
[2022-05-13 04:57] LABS: URINE AMPHETAMINE SCREEN NEGATIVE (Neg); URINE BARBITUATE SCREEN NEGATIVE (Neg); URINE BENZODIAZEPINES SCREEN NEGATIVE (Neg); URINE CANNABINOID SCREEN POSITIVE (Neg); URINE COCAINE SCREEN NEGATIVE (Neg); URINE METHADONE SCREEN NEGATIVE (Neg); URINE OPIATE SCREEN NEGATIVE (Neg); URINE PHENCYCLIDINE SCREEN NEGATIVE (Neg)
[2022-05-13] MEDS ORDERED: LIDOcaine Viscous 15ml cup TP ONE (05:35)
[2022-05-13] MEDS ORDERED: magnesium hydroxide 30ml (MOM) UD suspension PO PRN (05:40)
[2022-05-13] MEDS ORDERED: acetaminophen 650mg rectal suppository RC PRN (05:40)
[2022-05-13] MEDS ORDERED: morphine 2 MG/ML inj. syringe IV PRN ×2 (05:40)
[2022-05-13] MEDS ORDERED: diphenhydrAMINE 25mg capsule PO PRN (05:40)
[2022-05-13] MEDS ORDERED: diphenhydrAMINE 50 mg/ml inj IV PRN (05:40)
[2022-05-13] MEDS ORDERED: mag hydrox/Alum hydrox/simeth 30ml oral suspension PO PRN (05:40)
[2022-05-13] MEDS ORDERED: bisacodyl 10mg suppository rectal RC PRN (05:40)
[2022-05-13] MEDS ORDERED: ondansetron/PF 4mg/2ml inj IV PRN (05:40)
[2022-05-13] MEDS ORDERED: acetaminophen 325mg tablet PO PRN ×2 (05:40)
[2022-05-13] MEDS ORDERED: HYDROcodone/acetaminophen 5mg/325mg tablet PO PRN (05:40)
[2022-05-13] MEDS ORDERED: mineral oil 133ml enema RC PRN (05:50)
[2022-05-13] MEDS: normal saline 1000ml 1,000 ML IV SCH ×2 (07:00→10:57)
[2022-05-13] MEDS: docusate sod 100mg capsule PO SCH ×2 (07:17→20:00)
[2022-05-13] MEDS: pantoprazole 40MG/NS 100ML BAG 100 ML IV SCH (07:47)
[2022-05-13] MEDS: CefTRIAXone/D5W-Rocephin 1gm 50 ML IV SCH (07:47)
[2022-05-13] MEDS: heparin, porcine 5000 units/ml vial SQ SCH ×2 (07:47→20:41)
[2022-05-13 08:45] LABS: BASOPHILS # (AUTO) 0.1 X10'3 (0-0.2); BASOPHILS % (AUTO) 0.4 % (0-1); EOSINOPHILS # (AUTO) 0.2 X10'3 (0-0.9); HEMATOCRIT 28.6 % (35.0-45.0); HEMOGLOBIN 9.1 g/dl (12.0-16.0); LYMPHOCYTES # (AUTO) 1.6 X10'3 (1.1-4.8); LYMPHOCYTES % (AUTO) 10.9 % (21-51); MEAN CORPUSCULAR HEMOGLOBIN 29.3 PG (27.0-31.0); MEAN CORPUSCULAR HGB CONC 31.8 g/dL (33.0-36.5); MEAN CORPUSCULAR VOLUME 92.1 FL (78-98); MEAN PLATELET VOLUME 7.6 FL (7.4-10.4); MONOCYTES # (AUTO) 0.9 X10'3 (0-0.9); MONOCYTES % (AUTO) 5.7 % (2-12); NEUTROPHILS # (AUTO) 12.3 X10'3 (1.8-7.7); PLATELET COUNT 238 X10'3 (140-440); RED CELL DISTRIBUTION WIDTH 16.1 % (11.5-14.5)
[2022-05-13 08:52] LABS: APTT 27 SECONDS (22-32); D-DIMER 1.01 MG/L FEU (0-0.50)
[2022-05-13 10:30] VITALS: BP 100/57
[2022-05-13 10:52] LABS: MAGNESIUM 1.8 MG/DL (1.5-2.4); PHOSPHORUS 3.8 MG/DL (2.3-4.5)
[2022-05-13] MEDS ORDERED: FLUT1BLS4 (13:05)
[2022-05-13] MEDS ORDERED: IPRA3AMP31 NEB (13:05)
--- NOTE | 2022-05-13 13:07 | NUR ---
Received order for consult. Not an appropriate referral. I didn't meet with patient.
[2022-05-13] MEDS ORDERED: albuterol 2.5 MG/3 ML nebule NEB PRN (13:10)
[2022-05-13] MEDS ORDERED: ipratropium/albuterol 3ml nebule NEB PRN (13:10)
--- NOTE | 2022-05-13 16:38 | NUR ---
Bladder scanned patient showed to have 320ml's ml's in bladder will continue to monitor.
[2022-05-13 18:00] VITALS: BP 90/59
--- NOTE | 2022-05-13 18:44 | NUR ---
Problems reprioritized. Patient report given, questions answered & plan of care reviewed with Jay EWING.
[2022-05-13] MEDS: diatr meglu/diatrizoate 30ml oral sol.-(3 dose) bottle PO SCH (20:50)
[2022-05-13] MEDS ORDERED: temazepam 15mg capsule PO PRN (21:00)
[2022-05-13 22:00] VITALS: BP 130/80
--- NOTE | 2022-05-13 23:05 | NUR ---
PT WAS EXPRESSING SHE FEEL LIKE SHE NEED TO URINATE BUT SHE CAN'T. IT SHOWED 844CC PER BLADDER SCAN. PLACED FREEMAN PER ORDER. EMPTIED 800 FROM F/C.
[2022-05-14] MEDS: normal saline 1000ml 1,000 ML IV SCH ×3 (01:54→21:40)
[2022-05-14 06:00] VITALS: BP 100/43
[2022-05-14 06:30] LABS: BASOPHILS % (AUTO) 0.4 % (0-1); EOSINOPHILS # (AUTO) 0.2 X10'3 (0-0.9); EOSINOPHILS % (AUTO) 2.8 % (0-6); HEMATOCRIT 23.5 % (35.0-45.0); HEMOGLOBIN 7.8 g/dl (12.0-16.0); LYMPHOCYTES # (AUTO) 1.9 X10'3 (1.1-4.8); LYMPHOCYTES % (AUTO) 21.4 % (21-51); MEAN CORPUSCULAR HEMOGLOBIN 30.6 PG (27.0-31.0); MEAN CORPUSCULAR HGB CONC 33.1 g/dL (33.0-36.5); MEAN CORPUSCULAR VOLUME 92.3 FL (78-98); MEAN PLATELET VOLUME 7.6 FL (7.4-10.4); MONOCYTES # (AUTO) 0.5 X10'3 (0-0.9); MONOCYTES % (AUTO) 5.3 % (2-12); NEUTROPHILS # (AUTO) 6.1 X10'3 (1.8-7.7); NEUTROPHILS % (AUTO) 70.1 % (42-75); PLATELET COUNT 238 X10'3 (140-440); RED BLOOD COUNT 2.54 X10'6 (4.20-5.60); RED CELL DISTRIBUTION WIDTH 16.6 % (11.5-14.5); WHITE BLOOD COUNT 8.7 X10'3 (4.5-11.0)
--- NOTE | 2022-05-14 06:37 | NUR ---
Problems reprioritized. Patient report given, questions answered & plan of care reviewed with GILDARDO SHARMA.
--- NOTE | 2022-05-14 06:48 | NUR ---
PAGER ID: [phone] MESSAGE: Laura Fisher 346B pt 24 hr tele , running sinus rhythm, would you like me to continue with DC of tele? Jessica [id number]
[2022-05-14 06:52] LABS: ALANINE AMINOTRANSFERASE 19 U/L (12-78); ALBUMIN 2.2 G/DL (3.4-5.0); ALBUMIN/GLOBULIN RATIO 0.7 (1.1-1.5); ALKALINE PHOSPHATASE 78 IU/L (46-116); ANION GAP 3 (8-16); ASPARTATE AMINO TRANSFERASE 20 U/L (10-37); BILIRUBIN,TOTAL 0.2 MG/DL (0.1-1.0); BLOOD UREA NITROGEN 14 MG/DL (7-18); CALCIUM 7.5 MG/DL (8.5-10.1); CHLORIDE 104 MMOL/L (99-107); CREATININE 0.61 MG/DL (0.40-0.90); GLUCOSE 76 MG/DL (70-104); POTASSIUM 3.9 MMOL/L (3.5-5.1); SODIUM 135 MMOL/L (135-145); TOTAL CARBON DIOXIDE 28.2 MMOL/L (24-32); TOTAL PROTEIN 5.3 G/DL (6.4-8.2); eGFR > 90 ML/MIN
[2022-05-14 07:02] LABS: % IRON SATURATION 16 % (11-46); IRON 41 UG/DL (49-151); TOTAL IRON BINDING CAPACITY 250 UG/DL (259-388)
[2022-05-14] MEDS: pantoprazole 40MG/NS 100ML BAG 100 ML IV SCH (07:05)
[2022-05-14] MEDS: duloxetine 30mg CAPSULE.DR PO SCH (07:08)
[2022-05-14] MEDS: docusate sod 100mg capsule PO SCH ×2 (07:08→19:52)
[2022-05-14] MEDS: levoTHYROXINE 100mcg tablet PO SCH (07:08)
[2022-05-14] MEDS: heparin, porcine 5000 units/ml vial SQ SCH ×2 (07:09→19:53)
[2022-05-14] MEDS: diatr meglu/diatrizoate 30ml oral sol.-(3 dose) bottle PO SCH ×2 (07:09→09:54)
[2022-05-14] MEDS: HYDROcodone/acetaminophen 10/325mg tab PO PRN ×2 (07:23→23:20)
[2022-05-14] MEDS: CefTRIAXone/D5W-Rocephin 1gm 50 ML IV SCH (07:45)
[2022-05-14 10:00] VITALS: BP 88/49
[2022-05-14] MEDS ORDERED: COVID-19 VAC, BIVALENT (PFIZER)/PF 30 MCG/0.3 ML VIAL IMVAC ONE (11:00)
[2022-05-14] MEDS ORDERED: magnesium hydroxide 30ml (MOM) UD suspension PO PRN (13:05)
[2022-05-14] MEDS ORDERED: lactulose 20gm/30ml cup PO PRN (13:05)
[2022-05-14] MEDS ORDERED: bisacodyl 10mg suppository rectal RC PRN (13:05)
[2022-05-14] MEDS ORDERED: bisacodyl 10mg suppository rectal RC STA (13:06)
[2022-05-14] MEDS ORDERED: FLU VACC QS2022-23(6MOS UP)/PF 60 MCG/0.5 ML SYRINGE IMVAC ONE (14:00)
[2022-05-14] MEDS ORDERED: pneumococcal 23-VAL P-sac vacc 25 mcg/0.5ml vial IMVAC ONE (14:00)
[2022-05-14 14:29] LABS: HEMATOCRIT 25.3 % (35.0-45.0); HEMOGLOBIN 8.1 g/dl (12.0-16.0); MEAN CORPUSCULAR HEMOGLOBIN 29.4 PG (27.0-31.0); MEAN CORPUSCULAR VOLUME 91.9 FL (78-98); MEAN PLATELET VOLUME 7.4 FL (7.4-10.4); PLATELET COUNT 250 X10'3 (140-440); RED BLOOD COUNT 2.76 X10'6 (4.20-5.60); RED CELL DISTRIBUTION WIDTH 16.3 % (11.5-14.5); WHITE BLOOD COUNT 8.4 X10'3 (4.5-11.0)
[2022-05-14] MEDS ORDERED: normal saline 500ml IV soln 500 ML IV ONE (16:25)
--- NOTE | 2022-05-14 16:25 | NUR ---
PAGER ID: [phone] MESSAGE: COTY Fisher rm 346B Pt has a manual BP of 88/40 please advise sangita [id number]
--- NOTE | 2022-05-14 17:02 | NUR ---
Pt bp of 88/40 manually taken, MD aware, order for 500cc bolus to be administered
--- NOTE | 2022-05-14 17:28 | NUR ---
PAGER ID: [phone] MESSAGE: COTY Fisher rm 346B FYI f/u bp of 101/66 pulse of 84 post bolus Jessica [id number]
[2022-05-14 18:00] VITALS: BP 100/59
--- NOTE | 2022-05-14 18:00 | NUR ---
Patient in room [facility] 346. I have received report from sangita cutler and had the opportunity to ask questions and assume patient care.
[2022-05-14] MEDS ORDERED: iron sucrose complex injection 500 MG in normal saline 250ml IV soln 250 ML IV ONE (19:50)
[2022-05-14 22:00] VITALS: BP 93/56
--- NOTE | 2022-05-15 02:36 | NUR ---
Problems reprioritized. Patient report given, questions answered & plan of care reviewed with venecia haile.
--- NOTE | 2022-05-15 02:55 | NUR ---
I have received report from Noc GILDARDO Baugh and had the opportunity to ask questions and assume patient care at this time.
[2022-05-15 06:00] VITALS: BP 102/64
[2022-05-15 06:33] LABS: BASOPHILS % (AUTO) 0.3 % (0-1); EOSINOPHILS # (AUTO) 0.2 X10'3 (0-0.9); EOSINOPHILS % (AUTO) 2.1 % (0-6); HEMATOCRIT 24.9 % (35.0-45.0); HEMOGLOBIN 8.1 g/dl (12.0-16.0); LYMPHOCYTES # (AUTO) 1.2 X10'3 (1.1-4.8); LYMPHOCYTES % (AUTO) 16.6 % (21-51); MEAN CORPUSCULAR HGB CONC 32.4 g/dL (33.0-36.5); MEAN CORPUSCULAR VOLUME 92.5 FL (78-98); MEAN PLATELET VOLUME 7.7 FL (7.4-10.4); MONOCYTES # (AUTO) 0.4 X10'3 (0-0.9); MONOCYTES % (AUTO) 4.9 % (2-12); NEUTROPHILS # (AUTO) 5.6 X10'3 (1.8-7.7); NEUTROPHILS % (AUTO) 76.1 % (42-75); PLATELET COUNT 262 X10'3 (140-440); RED BLOOD COUNT 2.69 X10'6 (4.20-5.60); RED CELL DISTRIBUTION WIDTH 16.8 % (11.5-14.5); WHITE BLOOD COUNT 7.4 X10'3 (4.5-11.0)
--- NOTE | 2022-05-15 06:55 | NUR ---
Patient in room [facility] 346. I have received report from Humble Bundle and had the opportunity to ask questions and assume patient care.
[2022-05-15] MEDS: normal saline 1000ml 1,000 ML IV SCH (07:40)
[2022-05-15] MEDS ORDERED: pneumococcal 23-VAL P-sac vacc 25 mcg/0.5ml vial IMVAC ONE (08:00)
[2022-05-15] MEDS ORDERED: FLU VACC QS2022-23(6MOS UP)/PF 60 MCG/0.5 ML SYRINGE IMVAC ONE (08:00)
[2022-05-15] MEDS: pantoprazole 40MG/NS 100ML BAG 100 ML IV SCH (08:01)
[2022-05-15] MEDS: docusate sod 100mg capsule PO SCH (08:01)
[2022-05-15] MEDS: heparin, porcine 5000 units/ml vial SQ SCH (08:02)
[2022-05-15] MEDS: duloxetine 30mg CAPSULE.DR PO SCH (08:02)
[2022-05-15] MEDS: levoTHYROXINE 100mcg tablet PO SCH (08:02)
[2022-05-15 08:04] LABS: CHLORIDE 102 MMOL/L (99-107); SODIUM 136 MMOL/L (135-145)
[2022-05-15 08:06] LABS: ALANINE AMINOTRANSFERASE 17 U/L (12-78); ALBUMIN 2.1 G/DL (3.4-5.0); ALBUMIN/GLOBULIN RATIO 0.7 (1.1-1.5); ALKALINE PHOSPHATASE 77 IU/L (46-116); ANION GAP 6 (8-16); ASPARTATE AMINO TRANSFERASE 20 U/L (10-37); BILIRUBIN,TOTAL 0.2 MG/DL (0.1-1.0); BLOOD UREA NITROGEN 10 MG/DL (7-18); BUN/CREATININE RATIO 19.6 (6.6-38.0); CALCIUM 7.6 MG/DL (8.5-10.1); CREATININE 0.51 MG/DL (0.40-0.90); GLUCOSE 77 MG/DL (70-104); TOTAL CARBON DIOXIDE 27.8 MMOL/L (24-32); TOTAL PROTEIN 5.2 G/DL (6.4-8.2); eGFR > 90 ML/MIN
[2022-05-15] MEDS: CefTRIAXone/D5W-Rocephin 1gm 50 ML IV SCH (09:47)
[2022-05-15 10:00] VITALS: BP 113/62
--- NOTE | 2022-05-15 11:23 | NUR ---
Spoke to patient's sister Radha with permission from patient. Provided brief update.
[2022-05-15] MEDS ORDERED: BISA10SU11 RC (13:57)
[2022-05-15] MEDS ORDERED: LACT10SO32 PO (13:57)
--- NOTE | 2022-05-15 16:00 | NUR ---
Patient was able to urinate twice after removing the quarles catheter
--- NOTE | 2022-05-15 17:49 | NUR ---
Reviewed discharge instructions with patient. Patient verbalized understanding. Patient is alert, oriented and able to urinate post catheter removal. Patient explains she feels ready to discharge home. Patient's belongings were gathered and given to patient. Patient was wheeled downstairs to be driven home by family.
== END 2022-05-15 17:24 | disposition home or self-care (01) | DRG 720 ==
LOC: ER 02:36 → ED HOLD 05:44 → SUR 3N 10:44
PROVIDERS: ADMIT Family Medicine; ATTEND Family Medicine
PROC: 0D9670Z Drainage of Stomach with Drainage Device, Via Natural or Artificial Opening (ICD-10-PCS; principal; 2022-05-13)
PROC: XW023U6 Introduction of COVID-19 Vaccine into Muscle, Percutaneous Approach, New Technology Group 6 (ICD-10-PCS; 2022-05-14)
PROC: BW211ZZ Computerized Tomography (CT Scan) of Abdomen and Pelvis using Low Osmolar Contrast (ICD-10-PCS; 2022-05-14)
PROC: 3E0234Z Introduction of Serum, Toxoid and Vaccine into Muscle, Percutaneous Approach (ICD-10-PCS; 2022-05-15)
PROC: 3E02340 Introduction of Influenza Vaccine into Muscle, Percutaneous Approach (ICD-10-PCS; 2022-05-15)
DX: A41.9 Sepsis, unspecified organism (principal); J96.21 Acute and chronic respiratory failure with hypoxia; J44.1 Chronic obstructive pulmonary disease with (acute) exacerbation; K56.7 Ileus, unspecified; E87.1 Hypo-osmolality and hyponatremia; D50.9 Iron deficiency anemia, unspecified; F12.10 Cannabis abuse, uncomplicated; M54.9 Dorsalgia, unspecified; R82.4 Acetonuria; E03.9 Hypothyroidism, unspecified; E86.0 Dehydration; F17.210 Nicotine dependence, cigarettes, uncomplicated; Z60.2 Problems related to living alone; F31.9 Bipolar disorder, unspecified; G47.33 Obstructive sleep apnea (adult) (pediatric); G89.4 Chronic pain syndrome; K52.89 Other specified noninfective gastroenteritis and colitis; K56.41 Fecal impaction; N39.0 Urinary tract infection, site not specified; Z56.0 Unemployment, unspecified; Z87.440 Personal history of urinary (tract) infections; Z88.0 Allergy status to penicillin; Z91.199 Patient's noncompliance with other medical treatment and regimen due to unspecified reason; Z23 Encounter for immunization; Z79.899 Other long term (current) drug therapy
CPT/HCPCS: 0001A; 36415; 71045; 74018; 74176; 80053; 80305; 81001; 81025; 83540; 83550; 83605; 83690; 83735; 83880; 84100; 84145; 84443; 85025; 85027; 85379; 85610; 85730; 87040; 87077; 87081; 87088; 87186; 90686; 90732; 91300; 94760; 96365; 96375; 99285; A6250; A6258; C9113; G0378; J0696; J1644; J1756; J2270; J2405; J3010; J7030; J7040; J7050; Q9963

== ENCOUNTER 2022-09-05 14:41 | Outpatient (CLI) | payer MEDICAID ==
[~2022-09-05] VITALS: Ht 157.5 cm; Wt 76.7 kg
[~2022-09-05 14:41] MED LIST changes: +BISA10SU11 RC; +FLUT1BLS4; -LACT10SO3 PO; +LACT10SO78 PO; -MAGN296S89 PO; -PRED10TA23 PO
[2022-09-05] MEDS ORDERED: albuterol 2.5 MG/3 ML nebule NEB ONE (14:50)
== END 2022-09-05 23:59 | disposition home or self-care (01) ==
LOC: RT 14:41
PROVIDERS: ATTEND Family Medicine
DX: R94.2 Abnormal results of pulmonary function studies (principal); J44.9 Chronic obstructive pulmonary disease, unspecified; J98.4 Other disorders of lung
CPT/HCPCS: 94060; 94727; 94729; 94760

== ENCOUNTER 2023-06-11 17:17 | Emergency (ER) | payer MEDICAID ==
[~2023-06-11] VITALS: Ht 157.5 cm; Wt 70.5 kg
[2023-06-11 17:46] VITALS: BP 106/73; TEMP 97.9
[2023-06-11] MEDS ORDERED: ipratropium 0.5 MG/2.5ML nebule IH ONE (17:50)
[2023-06-11] MEDS ORDERED: methylPREDNISolone sod succ 125mg/2ml vial IV ONE (17:50)
[2023-06-11] MEDS ORDERED: normal saline 1000ML IV soln IVB ONE (17:50)
[2023-06-11] MEDS ORDERED: albuterol 2.5 MG/3 ML nebule CONTNEB PRN (17:50)
[2023-06-11 17:51] LABS: BASOPHILS # (AUTO) 0.1 X10'3 (0-0.2); BASOPHILS % (AUTO) 0.7 % (0-1); EOSINOPHILS # (AUTO) 0.1 X10'3 (0-0.9); EOSINOPHILS % (AUTO) 0.9 % (0-6); HEMATOCRIT 43.6 % (35.0-45.0); HEMOGLOBIN 14.6 g/dl (12.0-16.0); LYMPHOCYTES # (AUTO) 2.5 X10'3 (1.1-4.8); LYMPHOCYTES % (AUTO) 29.3 % (21-51); MEAN CORPUSCULAR HEMOGLOBIN 31.4 PG (27.0-31.0); MEAN CORPUSCULAR HGB CONC 33.6 g/dL (33.0-36.5); MEAN CORPUSCULAR VOLUME 93.5 FL (78-98); MEAN PLATELET VOLUME 8.2 FL (7.4-10.4); MONOCYTES # (AUTO) 0.5 X10'3 (0-0.9); MONOCYTES % (AUTO) 5.6 % (2-12); NEUTROPHILS # (AUTO) 5.5 X10'3 (1.8-7.7); NEUTROPHILS % (AUTO) 63.5 % (42-75); PLATELET COUNT 214 X10'3 (140-440); RED BLOOD COUNT 4.66 X10'6 (4.20-5.60); RED CELL DISTRIBUTION WIDTH 16.5 % (11.5-14.5); WHITE BLOOD COUNT 8.6 X10'3 (4.5-11.0)
[2023-06-11 18:06] LABS: ALBUMIN 3.8 G/DL (3.4-5.0); ANION GAP 5 (8-16); BLOOD UREA NITROGEN 15 MG/DL (7-18); BUN/CREATININE RATIO 19.2 (10.0-20.0); CALCIUM 8.9 MG/DL (8.5-10.1); CHLORIDE 99 MMOL/L (99-107); CREATININE 0.78 MG/DL (0.40-0.90); GLUCOSE 89 MG/DL (70-104); POTASSIUM 4.1 MMOL/L (3.5-5.1); PRO BRAIN NATRIURETIC PEPTIDE 38 PG/ML (0-125); SODIUM 140 MMOL/L (135-145); TOTAL CARBON DIOXIDE 36.3 MMOL/L (24-32); eCRCL 68 ML/MIN; eGFR 78 ML/MIN
[2023-06-11 18:10] VITALS: PULSE 70; RESP 70; O2SAT 100
[2023-06-11 18:51] LABS: D-DIMER < 0.19 MG/L FEU (0-0.50)
[2023-06-11 18:54] VITALS: PULSE 72; RESP 18; O2SAT 99
[2023-06-11] MEDS ORDERED: ALBU8HFA INH (19:43)
[2023-06-11] MEDS ORDERED: AZI25OT PO (19:43)
[2023-06-11] MEDS ORDERED: PRED20TA PO (19:43)
== END 2023-06-11 20:09 | disposition home or self-care (01) ==
LOC: ER 17:18
DX: J44.1 Chronic obstructive pulmonary disease with (acute) exacerbation (principal); R05.8 Other specified cough; F32.A Depression, unspecified; J44.9 Chronic obstructive pulmonary disease, unspecified; Z72.89 Other problems related to lifestyle; Z56.0 Unemployment, unspecified; Z79.4 Long term (current) use of insulin; Z79.899 Other long term (current) drug therapy; Z88.0 Allergy status to penicillin
CPT/HCPCS: 36415; 71045; 80048; 83605; 83880; 84484; 85025; 85379; 87040; 87077; 87186; 93005; 94640; 94644; 96361; 96374; 99285; J2930; J7030; 94760; A7015

== ENCOUNTER 2023-10-26 17:16 | Inpatient (IN) | payer MEDICAID ==
[~2023-10-26] VITALS: Ht 157.5 cm; Wt 73.6 kg
[2023-10-26] MEDS: methylPREDNISolone sod succ 125mg/2ml vial IV ONE (18:38)
[2023-10-26] MEDS: ipratropium 0.5 MG/2.5ML nebule IH ONE (18:44)
[2023-10-26] MEDS: albuterol 2.5 MG/3 ML nebule CONTNEB PRN (18:45)
[2023-10-26 18:47] LABS: BASOPHILS # (AUTO) 0.1 X10'3 (0-0.2); BASOPHILS % (AUTO) 0.5 % (0-1); EOSINOPHILS # (AUTO) 0.1 X10'3 (0-0.9); EOSINOPHILS % (AUTO) 0.6 % (0-6); HEMATOCRIT 40.9 % (35.0-45.0); HEMOGLOBIN 13.8 g/dl (12.0-16.0); LYMPHOCYTES # (AUTO) 2.2 X10'3 (1.1-4.8); LYMPHOCYTES % (AUTO) 21.2 % (21-51); MEAN CORPUSCULAR HEMOGLOBIN 32.5 PG (27.0-31.0); MEAN CORPUSCULAR HGB CONC 33.6 g/dL (33.0-36.5); MEAN CORPUSCULAR VOLUME 96.5 FL (78-98); MEAN PLATELET VOLUME 8.1 FL (7.4-10.4); MONOCYTES # (AUTO) 0.8 X10'3 (0-0.9); MONOCYTES % (AUTO) 8.1 % (2-12); NEUTROPHILS # (AUTO) 7.2 X10'3 (1.8-7.7); NEUTROPHILS % (AUTO) 69.6 % (42-75); PLATELET COUNT 333 X10'3 (140-440); RED BLOOD COUNT 4.24 X10'6 (4.20-5.60); RED CELL DISTRIBUTION WIDTH 15.3 % (11.5-14.5); WHITE BLOOD COUNT 10.4 X10'3 (4.5-11.0)
[2023-10-26 18:49] VITALS: PULSE 80; RESP 22; O2SAT 97
[2023-10-26 18:52] LABS: ALBUMIN 3.7 G/DL (3.4-5.0); ANION GAP 8 (8-16); BLOOD UREA NITROGEN 11 MG/DL (7-18); BUN/CREATININE RATIO 16.2 (10.0-20.0); CALCIUM 8.8 MG/DL (8.5-10.1); CHLORIDE 96 MMOL/L (99-107); CREATININE 0.68 MG/DL (0.40-0.90); GLUCOSE 82 MG/DL (70-104); PRO BRAIN NATRIURETIC PEPTIDE 74 PG/ML (0-125); SODIUM 138 MMOL/L (135-145); TOTAL CARBON DIOXIDE 33.7 MMOL/L (24-32); eCRCL 78 ML/MIN; eGFR > 90 ML/MIN
[2023-10-26 19:41] VITALS: PULSE 88; RESP 20; O2SAT 97
[2023-10-26 19:42] VITALS: PULSE 86; RESP 20; O2SAT 98
[2023-10-26] MEDS ORDERED: potassium Cl 40MEQ/1/2NS 520ml 520 ML IV PRN (21:35)
[2023-10-26] MEDS ORDERED: ondansetron/PF 4mg/2ml inj IV PRN (21:35)
[2023-10-26] MEDS ORDERED: potassium Cl 20 mEq SR tablet PO PRN ×2 (21:35)
[2023-10-26] MEDS ORDERED: magnesium Cl slow-release 64mg tablet PO PRN (21:35)
[2023-10-26] MEDS ORDERED: magnesium 4gm in 100ml NS 100 ML IV PRN (21:35)
[2023-10-26] MEDS ORDERED: mag hydrox/Alum hydrox/simeth 30ml oral suspension PO PRN (21:35)
[2023-10-26] MEDS ORDERED: magnesium 2GM in 50ml NS 50 ML IV PRN (21:35)
[2023-10-26] MEDS ORDERED: magnesium hydroxide 30ml (MOM) UD suspension PO PRN (21:35)
[2023-10-26 22:10] LABS: MAGNESIUM 1.7 MG/DL (1.5-2.4); PHOSPHORUS 3.9 MG/DL (2.3-4.5)
[2023-10-26 22:11] LABS: HEMOGLOBIN A1C 5.3 % (4.5-6.2)
[2023-10-26 22:18] LABS: APTT 30 SECONDS (22-32); PROTHROMBIN TIME 10.9 SECONDS (9.0-12.0)
[2023-10-26] MEDS: CefTRIAXone/D5W-Rocephin 1gm 50 ML IV ONE (22:30)
[2023-10-26 22:33] LABS: BILIRUBIN,URINE MODERATE (Neg); CLARITY,URINE CLEAR (Clear); COLOR,URINE YELLOW (Yellow); GLUCOSE, URINE NEGATIVE (Neg); KETONES,URINE 40 mg/dl (Neg); LEUKOCYTE ESTERASE ,URINE NEGATIVE (Neg); NITRITES, URINE NEGATIVE (Neg); OCCULT BLOOD,URINE NEGATIVE (Neg); PH,URINE 6.5 (4.8-8.0); PROTEIN,URINE 30 mg/dl (Neg)
[2023-10-26 22:37] LABS: UA COLLECTION TYPE VOIDED
[2023-10-26 22:55] LABS: BACTERIA,URINE 1+ /HPF (Neg); MUCUS STRANDS MANY /LPF (Neg); SQUAMOUS EPITHELIAL CELL,UR MANY /LPF (FEW); TRANSITIONAL EPI CELLS,URINE FEW /HPF; WBC,URINE 0-4 /HPF (0-4)
[2023-10-27] VITALS (21 sets, daily range): BP systolic 94–118; BP diastolic 54–77; PULSE 58–90; RESP 15–31; TEMP 97–98.4; O2SAT 94–99
[2023-10-27 00:13] LABS: ABG BASE EXCESS 0.4 mmol/L (-2.0-2.0); ABG HCO3 27.2 mmol/L (22.0-26.0); ABG OXYGEN SATURATION 93.2 % (94-97); ABG PCO2 (T) 52.2 mmHg (32.0-45.0); ABG PH (T) 7.334 (7.350-7.450); ABG PO2 (T) 65.8 mmHg (75.0-100.0); ALLEN'S TEST POSITIVE; FCOHb 2.1 % (0.0-3.9); FHHb 6.6 % (0.0-5.0); FMetHb 0.2 % (0.0-1.5); FO2Hb 91.1 % (94-97); MODE MASK - BIPAP; RESPIRATORY RATE 10 b/min; TOTAL HEMOGLOBIN 14.5 G/dl (12.0-16.0)
[2023-10-27] MEDS: azithromycin/NS 500mg/250ml 250 ML IV SCH (00:14)
[2023-10-27 01:35] LABS: URINE AMPHETAMINE SCREEN NEGATIVE (Neg); URINE BARBITUATE SCREEN NEGATIVE (Neg); URINE BENZODIAZEPINES SCREEN NEGATIVE (Neg); URINE CANNABINOID SCREEN POSITIVE (Neg); URINE COCAINE SCREEN NEGATIVE (Neg); URINE METHADONE SCREEN NEGATIVE (Neg); URINE OPIATE SCREEN NEGATIVE (Neg); URINE PHENCYCLIDINE SCREEN NEGATIVE (Neg)
[2023-10-27] MEDS: ipratropium/albuterol 3ml nebule NEB SCH (02:49)
[2023-10-27 06:29] LABS: BASOPHILS % (AUTO) 0.1 % (0-1); EOSINOPHILS % (AUTO) 0 % (0-6); HEMOGLOBIN 13.3 g/dl (12.0-16.0); LYMPHOCYTES # (AUTO) 1.3 X10'3 (1.1-4.8); LYMPHOCYTES % (AUTO) 10.2 % (21-51); MEAN CORPUSCULAR HEMOGLOBIN 31.9 PG (27.0-31.0); MEAN CORPUSCULAR HGB CONC 33.2 g/dL (33.0-36.5); MEAN CORPUSCULAR VOLUME 95.9 FL (78-98); MEAN PLATELET VOLUME 7.7 FL (7.4-10.4); MONOCYTES # (AUTO) 0.5 X10'3 (0-0.9); MONOCYTES % (AUTO) 4.3 % (2-12); NEUTROPHILS # (AUTO) 10.8 X10'3 (1.8-7.7); NEUTROPHILS % (AUTO) 85.4 % (42-75); PLATELET COUNT 310 X10'3 (140-440); RED BLOOD COUNT 4.17 X10'6 (4.20-5.60); RED CELL DISTRIBUTION WIDTH 14.8 % (11.5-14.5); WHITE BLOOD COUNT 12.6 X10'3 (4.5-11.0)
[2023-10-27 06:49] LABS: ALANINE AMINOTRANSFERASE 21 U/L (12-78); ALBUMIN 3.5 G/DL (3.4-5.0); ALBUMIN/GLOBULIN RATIO 0.8 (1.1-1.5); ALKALINE PHOSPHATASE 92 IU/L (46-116); ANION GAP 6 (8-16); ASPARTATE AMINO TRANSFERASE 13 U/L (10-37); BILIRUBIN,TOTAL 0.3 MG/DL (0.1-1.0); BLOOD UREA NITROGEN 12 MG/DL (7-18); CHLORIDE 98 MMOL/L (99-107); CHOL/HDL RATIO 3.7 (0.00-4.99); CHOLESTEROL 214 MG/DL (0-200); CREATININE 0.75 MG/DL (0.40-0.90); GLUCOSE 148 MG/DL (70-104); HDL CHOLESTEROL 58 MG/DL (35-60); LDL CHOLESTEROL 132 MG/DL (50-100); MAGNESIUM 1.8 MG/DL (1.5-2.4); PHOSPHORUS 3.9 MG/DL (2.3-4.5); POTASSIUM 4.3 MMOL/L (3.5-5.1); SODIUM 138 MMOL/L (135-145); TOTAL PROTEIN 7.7 G/DL (6.4-8.2); TRIGLYCERIDES 94 MG/DL (20-135); eCRCL 71 ML/MIN; eGFR 82 ML/MIN
[2023-10-27] MEDS: K and/or MAG REPLACEMENT MC SCH (08:00)
[2023-10-27] MEDS: docusate sod 100mg capsule PO SCH (08:24)
[2023-10-27] MEDS: methylPREDNISolone sod succ 125mg/2ml vial IV SCH (08:24)
[2023-10-27] MEDS: heparin, porcine 5000 units/ml vial SQ SCH (08:27)
[2023-10-27] MEDS: CefTRIAXone/D5W-Rocephin 1gm 50 ML IV SCH (08:30)
[2023-10-27] MEDS ORDERED: pneumococcal 23-VAL P-sac vacc 25 mcg/0.5ml vial IMVAC ONE (10:00)
[2023-10-27] MEDS: acetaminophen 325mg tablet PO PRN (21:42)
[2023-10-28] VITALS (21 sets, daily range): BP systolic 104–133; BP diastolic 54–85; PULSE 60–90; RESP 12–24; TEMP 97–98.2; O2SAT 92–99
[2023-10-28 06:13] LABS: BASOPHILS % (AUTO) 0.2 % (0-1); EOSINOPHILS % (AUTO) 0.1 % (0-6); HEMATOCRIT 39.6 % (35.0-45.0); HEMOGLOBIN 13.1 g/dl (12.0-16.0); LYMPHOCYTES % (AUTO) 15.1 % (21-51); MEAN CORPUSCULAR HEMOGLOBIN 31.9 PG (27.0-31.0); MEAN CORPUSCULAR HGB CONC 33.1 g/dL (33.0-36.5); MEAN CORPUSCULAR VOLUME 96.3 FL (78-98); MEAN PLATELET VOLUME 7.8 FL (7.4-10.4); MONOCYTES # (AUTO) 0.9 X10'3 (0-0.9); MONOCYTES % (AUTO) 6.4 % (2-12); NEUTROPHILS # (AUTO) 10.6 X10'3 (1.8-7.7); NEUTROPHILS % (AUTO) 78.2 % (42-75); PLATELET COUNT 290 X10'3 (140-440); RED BLOOD COUNT 4.11 X10'6 (4.20-5.60); RED CELL DISTRIBUTION WIDTH 14.7 % (11.5-14.5); WHITE BLOOD COUNT 13.6 X10'3 (4.5-11.0)
[2023-10-28 06:21] LABS: ALANINE AMINOTRANSFERASE 22 U/L (12-78); ALBUMIN 3.5 G/DL (3.4-5.0); ALBUMIN/GLOBULIN RATIO 0.9 (1.1-1.5); ALKALINE PHOSPHATASE 81 IU/L (46-116); ANION GAP 3 (8-16); ASPARTATE AMINO TRANSFERASE 21 U/L (10-37); BILIRUBIN,TOTAL 0.2 MG/DL (0.1-1.0); BLOOD UREA NITROGEN 12 MG/DL (7-18); BUN/CREATININE RATIO 16.9 (10.0-20.0); CALCIUM 9.7 MG/DL (8.5-10.1); CHLORIDE 99 MMOL/L (99-107); CREATININE 0.71 MG/DL (0.40-0.90); GLUCOSE 97 MG/DL (70-104); MAGNESIUM 1.8 MG/DL (1.5-2.4); PHOSPHORUS 4.4 MG/DL (2.3-4.5); POTASSIUM 4.7 MMOL/L (3.5-5.1); SODIUM 137 MMOL/L (135-145); TOTAL CARBON DIOXIDE 34.8 MMOL/L (24-32); TOTAL PROTEIN 7.5 G/DL (6.4-8.2); eCRCL 75 ML/MIN; eGFR 87 ML/MIN
[2023-10-28 06:51] LABS: PLATELET ESTIMATE NORMAL; TOTAL CELLS COUNTED 100
[2023-10-28 06:52] LABS: STOMATOCYTES FEW
[2023-10-28 06:54] LABS: LARGE PLATELETS FEW
[2023-10-28] MEDS: duloxetine 30mg CAPSULE.DR PO SCH (08:13)
[2023-10-29] VITALS (9 sets, daily range): BP systolic 122–126; BP diastolic 71–90; PULSE 68–76; RESP 15–18; TEMP 97.2–97.9; O2SAT 93–98
[2023-10-29 06:45] LABS: BASOPHILS # (AUTO) 0.1 X10'3 (0-0.2); BASOPHILS % (AUTO) 0.4 % (0-1); EOSINOPHILS % (AUTO) 0.1 % (0-6); HEMATOCRIT 40.7 % (35.0-45.0); HEMOGLOBIN 13.3 g/dl (12.0-16.0); LYMPHOCYTES # (AUTO) 2.5 X10'3 (1.1-4.8); LYMPHOCYTES % (AUTO) 15.9 % (21-51); MEAN CORPUSCULAR HEMOGLOBIN 31.3 PG (27.0-31.0); MEAN CORPUSCULAR HGB CONC 32.6 g/dL (33.0-36.5); MEAN CORPUSCULAR VOLUME 96.1 FL (78-98); MEAN PLATELET VOLUME 7.8 FL (7.4-10.4); MONOCYTES # (AUTO) 0.9 X10'3 (0-0.9); MONOCYTES % (AUTO) 5.6 % (2-12); NEUTROPHILS # (AUTO) 12.1 X10'3 (1.8-7.7); PLATELET COUNT 304 X10'3 (140-440); RED BLOOD COUNT 4.23 X10'6 (4.20-5.60); RED CELL DISTRIBUTION WIDTH 15.1 % (11.5-14.5); WHITE BLOOD COUNT 15.6 X10'3 (4.5-11.0)
[2023-10-29 06:53] LABS: ALANINE AMINOTRANSFERASE 19 U/L (12-78); ALBUMIN 3.4 G/DL (3.4-5.0); ALBUMIN/GLOBULIN RATIO 0.8 (1.1-1.5); ALKALINE PHOSPHATASE 83 IU/L (46-116); ANION GAP 6 (8-16); ASPARTATE AMINO TRANSFERASE 16 U/L (10-37); BILIRUBIN,TOTAL 0.3 MG/DL (0.1-1.0); BLOOD UREA NITROGEN 14 MG/DL (7-18); BUN/CREATININE RATIO 18.2 (10.0-20.0); CALCIUM 9.1 MG/DL (8.5-10.1); CHLORIDE 97 MMOL/L (99-107); CREATININE 0.77 MG/DL (0.40-0.90); GLUCOSE 93 MG/DL (70-104); MAGNESIUM 1.9 MG/DL (1.5-2.4); PHOSPHORUS 5.2 MG/DL (2.3-4.5); POTASSIUM 4.7 MMOL/L (3.5-5.1); SODIUM 138 MMOL/L (135-145); TOTAL PROTEIN 7.5 G/DL (6.4-8.2); eCRCL 69 ML/MIN; eGFR 79 ML/MIN
[2023-10-29 08:01] LABS: PLATELET ESTIMATE NORMAL; STOMATOCYTES FEW; TOTAL CELLS COUNTED 100
[2023-10-29] MEDS ORDERED: LEVO-65 PO (10:06)
[2023-10-29] MEDS ORDERED: PRED20TA PO (10:06)
[2023-10-29] MEDS ORDERED: NICO-731 TOP (10:08)
== END 2023-10-29 11:47 | disposition home or self-care (01) | DRG 140 ==
LOC: ER 17:16 → ED HOLD 21:46 → EDBEDREQ 23:21 → PCU 3S 10-27 00:42
PROVIDERS: ADMIT Student in an Organized Health Care Education/Training Program; ATTEND Internal Medicine
PROC: 5A09357 Assistance with Respiratory Ventilation, Less than 24 Consecutive Hours, Continuous Positive Airway Pressure (ICD-10-PCS; principal; 2023-10-27)
PROC: 5A09357 Assistance with Respiratory Ventilation, Less than 24 Consecutive Hours, Continuous Positive Airway Pressure (ICD-10-PCS; 2023-10-28)
PROC: 5A09357 Assistance with Respiratory Ventilation, Less than 24 Consecutive Hours, Continuous Positive Airway Pressure (ICD-10-PCS; 2023-10-29)
DX: J44.1 Chronic obstructive pulmonary disease with (acute) exacerbation (principal); J96.21 Acute and chronic respiratory failure with hypoxia; J18.9 Pneumonia, unspecified organism; J44.0 Chronic obstructive pulmonary disease with (acute) lower respiratory infection; Z99.81 Dependence on supplemental oxygen; F31.9 Bipolar disorder, unspecified; Z20.822 Contact with and (suspected) exposure to COVID-19; E03.9 Hypothyroidism, unspecified; G47.30 Sleep apnea, unspecified; G89.29 Other chronic pain; Z60.2 Problems related to living alone; M54.9 Dorsalgia, unspecified; Z56.0 Unemployment, unspecified; Z88.0 Allergy status to penicillin; Z88.8 Allergy status to other drugs, medicaments and biological substances; Z79.899 Other long term (current) drug therapy
CPT/HCPCS: 36415; 36600; 71045; 80048; 80053; 80061; 80305; 81001; 82803; 82948; 83036; 83605; 83735; 83880; 84100; 84145; 84484; 85007; 85018; 85025; 85379; 85610; 85730; 87040; 87070; 87081; 87502; 87503; 87811; 90732; 93005; 93308; 94640; 94660; 94760; 96374; 99285; A4615; A7015; G0378; J0456; J0696; J1644; J2919; J7040

== ENCOUNTER 2024-01-16 13:39 | Emergency (ER) | payer MEDICAID ==
[~2024-01-16] VITALS: Ht 157.5 cm; Wt 71.2 kg
[~2024-01-16 13:39] MED LIST changes: -BISA10SU11 RC; -CHOL500050 PO; -LACT10SO78 PO; -LEVO200T8 PO; +NICO-731 TOP
[2024-01-16] MEDS ORDERED: ipratropium/albuterol 3ml nebule NEB PRN (13:55)
[2024-01-16] MEDS: methylPREDNISolone sod succ 125mg/2ml vial IV ONE (14:19)
[2024-01-16] MEDS: normal saline 1000ml 1,000 ML IV ONE (14:20)
[2024-01-16 15:16] LABS: BASOPHILS # (AUTO) 0.1 X10'3 (0-0.2); BASOPHILS % (AUTO) 0.9 % (0-1); EOSINOPHILS # (AUTO) 0.1 X10'3 (0-0.9); EOSINOPHILS % (AUTO) 0.8 % (0-6); HEMATOCRIT 43.1 % (35.0-45.0); HEMOGLOBIN 13.8 g/dl (12.0-16.0); LYMPHOCYTES # (AUTO) 1.8 X10'3 (1.1-4.8); LYMPHOCYTES % (AUTO) 26.9 % (21-51); MEAN CORPUSCULAR HEMOGLOBIN 31.5 PG (27.0-31.0); MEAN CORPUSCULAR HGB CONC 32.1 g/dL (33.0-36.5); MEAN CORPUSCULAR VOLUME 98.1 FL (78-98); MEAN PLATELET VOLUME 7.8 FL (7.4-10.4); MONOCYTES # (AUTO) 0.5 X10'3 (0-0.9); MONOCYTES % (AUTO) 7.4 % (2-12); NEUTROPHILS # (AUTO) 4.2 X10'3 (1.8-7.7); PLATELET COUNT 235 X10'3 (140-440); RED BLOOD COUNT 4.39 X10'6 (4.20-5.60); RED CELL DISTRIBUTION WIDTH 16.8 % (11.5-14.5); WHITE BLOOD COUNT 6.6 X10'3 (4.5-11.0)
[2024-01-16 15:28] LABS: ALANINE AMINOTRANSFERASE 21 U/L (12-78); ALBUMIN/GLOBULIN RATIO 1.1 (1.1-1.5); ALKALINE PHOSPHATASE 73 IU/L (46-116); ANION GAP 2 (8-16); ASPARTATE AMINO TRANSFERASE 21 U/L (10-37); BILIRUBIN,TOTAL 0.3 MG/DL (0.1-1.0); BLOOD UREA NITROGEN 11 MG/DL (7-18); BUN/CREATININE RATIO 13.9 (10.0-20.0); CALCIUM 9.2 MG/DL (8.5-10.1); CHLORIDE 98 MMOL/L (99-107); CREATININE 0.79 MG/DL (0.40-0.90); GLUCOSE 92 MG/DL (70-104); POTASSIUM 4.1 MMOL/L (3.5-5.1); SODIUM 143 MMOL/L (135-145); TOTAL PROTEIN 7.8 G/DL (6.4-8.2); eCRCL 67 ML/MIN; eGFR 77 ML/MIN
[2024-01-16] MEDS ORDERED: PRED20TA PO (15:29)
[2024-01-16 15:32] LABS: TOTAL CARBON DIOXIDE 42.7 MMOL/L (24-32)
[2024-01-16 16:19] VITALS: BP 124/86; PULSE 83; RESP 18; TEMP 98; O2SAT 97
== END 2024-01-16 16:23 | disposition home or self-care (01) ==
LOC: ER 13:40
DX: J44.1 Chronic obstructive pulmonary disease with (acute) exacerbation (principal); J44.9 Chronic obstructive pulmonary disease, unspecified; G89.29 Other chronic pain; M54.9 Dorsalgia, unspecified; F32.A Depression, unspecified; Z88.0 Allergy status to penicillin; Z79.899 Other long term (current) drug therapy
CPT/HCPCS: 36415; 71045; 80053; 84484; 85025; 93005; 96361; 96374; 99285; J2919; J7030

== ENCOUNTER 2024-02-18 10:32 | Inpatient (IN) | payer MEDICAID ==
[2024-02-18] VITALS (8 sets, daily range): PULSE 73–99; RESP 12–24; O2SAT 93–99
[~2024-02-18] VITALS: Ht 157.5 cm; Wt 79.5 kg
[~2024-02-18 10:32] MED LIST changes: +LEVO25TA7 PO
[2024-02-18] MEDS: ipratropium/albuterol 3ml nebule NEB ONE (11:23)
[2024-02-18 11:25] LABS: BASOPHILS # (AUTO) 0.1 X10'3 (0-0.2); EOSINOPHILS % (AUTO) 0.6 % (0-6); HEMATOCRIT 39.9 % (35.0-45.0); HEMOGLOBIN 12.8 g/dl (12.0-16.0); LYMPHOCYTES # (AUTO) 1.3 X10'3 (1.1-4.8); LYMPHOCYTES % (AUTO) 17.8 % (21-51); MEAN CORPUSCULAR HEMOGLOBIN 32.1 PG (27.0-31.0); MEAN CORPUSCULAR HGB CONC 32.2 g/dL (33.0-36.5); MEAN CORPUSCULAR VOLUME 99.6 FL (78-98); MEAN PLATELET VOLUME 8.5 FL (7.4-10.4); MONOCYTES # (AUTO) 0.6 X10'3 (0-0.9); MONOCYTES % (AUTO) 8.1 % (2-12); NEUTROPHILS # (AUTO) 5.2 X10'3 (1.8-7.7); NEUTROPHILS % (AUTO) 72.5 % (42-75); PLATELET COUNT 268 X10'3 (140-440); RED CELL DISTRIBUTION WIDTH 15.9 % (11.5-14.5); WHITE BLOOD COUNT 7.1 X10'3 (4.5-11.0)
[2024-02-18] MEDS: methylPREDNISolone sod succ 125mg/2ml vial IV ONE (11:31)
[2024-02-18 11:56] LABS: ALANINE AMINOTRANSFERASE 20 U/L (12-78); ALBUMIN 4.1 G/DL (3.4-5.0); ALKALINE PHOSPHATASE 98 IU/L (46-116); ANION GAP 0 (8-16); ASPARTATE AMINO TRANSFERASE 22 U/L (10-37); BILIRUBIN,TOTAL 0.4 MG/DL (0.1-1.0); BLOOD UREA NITROGEN 12 MG/DL (7-18); CALCIUM 9.2 MG/DL (8.5-10.1); CHLORIDE 96 MMOL/L (99-107); GLUCOSE 79 MG/DL (70-104); POTASSIUM 4.5 MMOL/L (3.5-5.1); PRO BRAIN NATRIURETIC PEPTIDE 286 PG/ML (0-125); SODIUM 138 MMOL/L (135-145); TOTAL PROTEIN 8.2 G/DL (6.4-8.2); eCRCL 105 ML/MIN; eGFR > 90 ML/MIN
[2024-02-18 11:59] LABS: TOTAL CARBON DIOXIDE 41.8 MMOL/L (24-32)
[2024-02-18] MEDS: albuterol 2.5 MG/3 ML nebule NEB ONE (12:00)
[2024-02-18 12:56] LABS: BILIRUBIN,URINE NEGATIVE (Neg); CLARITY,URINE CLEAR (Clear); COLOR,URINE YELLOW (Yellow); GLUCOSE, URINE NEGATIVE (Neg); KETONES,URINE NEGATIVE (Neg); LEUKOCYTE ESTERASE ,URINE NEGATIVE (Neg); NITRITES, URINE NEGATIVE (Neg); OCCULT BLOOD,URINE SMALL (Neg); PH,URINE 6.5 (4.8-8.0); PROTEIN,URINE TRACE mg/dl (Neg); UROBILINOGEN,URINE 0.2 E.U/dL (0.2-1.0)
[2024-02-18 13:03] LABS: UA COLLECTION TYPE NON-SPECIFIED
[2024-02-18 13:06] LABS: BACTERIA,URINE FEW /HPF (Neg); SQUAMOUS EPITHELIAL CELL,UR MODERATE /LPF (FEW); WBC,URINE 0-4 /HPF (0-4)
[2024-02-18] MEDS ORDERED: potassium Cl 20 mEq SR tablet PO PRN ×2 (13:50)
[2024-02-18] MEDS ORDERED: magnesium sulf-water 2g/50mL 50 ML IV PRN (13:50)
[2024-02-18] MEDS ORDERED: ondansetron/PF 4mg/2ml inj IV PRN (13:50)
[2024-02-18] MEDS ORDERED: acetaminophen 325mg tablet PO PRN ×2 (13:50)
[2024-02-18] MEDS ORDERED: magnesium hydroxide 30ml (MOM) UD suspension PO PRN (13:50)
[2024-02-18] MEDS ORDERED: magnesium Cl slow-release 64mg tablet PO PRN (13:50)
[2024-02-18] MEDS ORDERED: potassium Cl 40MEQ/1/2NS 520ml 520 ML IV PRN (13:50)
[2024-02-18] MEDS ORDERED: magnesium sulf-water 4G/100mL 100 ML IV PRN (13:50)
[2024-02-18] MEDS: levoFLOXACIN-Levaquin 500mg/D5 100 ML IV SCH (14:55)
[2024-02-18] MEDS: nicotine 14mg patch - 24hr TD SCH (15:24)
[2024-02-18 15:52] LABS: URINE AMPHETAMINE SCREEN NEGATIVE (Neg); URINE BARBITUATE SCREEN NEGATIVE (Neg); URINE BENZODIAZEPINES SCREEN NEGATIVE (Neg); URINE CANNABINOID SCREEN POSITIVE (Neg); URINE COCAINE SCREEN NEGATIVE (Neg); URINE METHADONE SCREEN NEGATIVE (Neg); URINE OPIATE SCREEN NEGATIVE (Neg); URINE PHENCYCLIDINE SCREEN NEGATIVE (Neg)
[2024-02-18] MEDS: albuterol 2.5 MG/3 ML nebule NEB SCH (18:38)
[2024-02-18] MEDS: methylPREDNISolone sod succ 125mg/2ml vial IV SCH (20:11)
[2024-02-18] MEDS: heparin, porcine 5000 units/ml vial SQ SCH (20:13)
[2024-02-18] MEDS ORDERED: albuterol 2.5 MG/3 ML nebule NEB PRN (22:20)
[2024-02-19] VITALS (15 sets, daily range): BP systolic 111–116; BP diastolic 68–77; PULSE 74–95; RESP 16–24; TEMP 98.2–98.7; O2SAT 92–99
[2024-02-19] MEDS: albuterol 2.5 MG/3 ML nebule NEB SCH (02:48)
[2024-02-19 03:35] LABS: BASOPHILS % (AUTO) 0.2 % (0-1); EOSINOPHILS % (AUTO) 0 % (0-6); HEMATOCRIT 36.7 % (35.0-45.0); HEMOGLOBIN 11.9 g/dl (12.0-16.0); LYMPHOCYTES # (AUTO) 0.7 X10'3 (1.1-4.8); LYMPHOCYTES % (AUTO) 7.6 % (21-51); MEAN CORPUSCULAR HEMOGLOBIN 31.7 PG (27.0-31.0); MEAN CORPUSCULAR HGB CONC 32.3 g/dL (33.0-36.5); MEAN CORPUSCULAR VOLUME 98.1 FL (78-98); MONOCYTES # (AUTO) 0.3 X10'3 (0-0.9); MONOCYTES % (AUTO) 2.8 % (2-12); NEUTROPHILS # (AUTO) 8.5 X10'3 (1.8-7.7); NEUTROPHILS % (AUTO) 89.4 % (42-75); PLATELET COUNT 241 X10'3 (140-440); RED BLOOD COUNT 3.74 X10'6 (4.20-5.60); RED CELL DISTRIBUTION WIDTH 15.8 % (11.5-14.5); WHITE BLOOD COUNT 9.5 X10'3 (4.5-11.0)
[2024-02-19 03:47] LABS: ALANINE AMINOTRANSFERASE 16 U/L (12-78); ALBUMIN 3.7 G/DL (3.4-5.0); ALKALINE PHOSPHATASE 88 IU/L (46-116); ANION GAP -1 (8-16); ASPARTATE AMINO TRANSFERASE 16 U/L (10-37); BILIRUBIN,TOTAL 0.4 MG/DL (0.1-1.0); BLOOD UREA NITROGEN 14 MG/DL (7-18); BUN/CREATININE RATIO 28.6 (10.0-20.0); CALCIUM 9.6 MG/DL (8.5-10.1); CHLORIDE 95 MMOL/L (99-107); CREATININE 0.49 MG/DL (0.40-0.90); GLUCOSE 97 MG/DL (70-104); POTASSIUM 4.9 MMOL/L (3.5-5.1); SODIUM 137 MMOL/L (135-145); TOTAL PROTEIN 7.5 G/DL (6.4-8.2); eCRCL 107 ML/MIN; eGFR > 90 ML/MIN
[2024-02-19 03:53] LABS: TOTAL CARBON DIOXIDE 42.5 MMOL/L (24-32)
[2024-02-19] MEDS: nitroGLYCERIN 0.4mg SUBLingual tab SL PRN (22:45)
[2024-02-19] MEDS: morphine 2 MG/ML inj. syringe IV ONE (23:06)
[2024-02-20] VITALS (8 sets, daily range): BP systolic 106–121; BP diastolic 62–73; PULSE 66–87; RESP 16–20; TEMP 97.9–98.3; O2SAT 95–98
[2024-02-20 05:13] LABS: BASOPHILS % (AUTO) 0.3 % (0-1); EOSINOPHILS % (AUTO) 0 % (0-6); HEMATOCRIT 36.4 % (35.0-45.0); HEMOGLOBIN 11.6 g/dl (12.0-16.0); LYMPHOCYTES # (AUTO) 0.9 X10'3 (1.1-4.8); LYMPHOCYTES % (AUTO) 8.4 % (21-51); MEAN CORPUSCULAR HEMOGLOBIN 31.2 PG (27.0-31.0); MEAN CORPUSCULAR VOLUME 97.3 FL (78-98); MEAN PLATELET VOLUME 8.3 FL (7.4-10.4); MONOCYTES # (AUTO) 0.3 X10'3 (0-0.9); MONOCYTES % (AUTO) 2.4 % (2-12); NEUTROPHILS # (AUTO) 9.9 X10'3 (1.8-7.7); NEUTROPHILS % (AUTO) 88.9 % (42-75); PLATELET COUNT 242 X10'3 (140-440); RED BLOOD COUNT 3.74 X10'6 (4.20-5.60); RED CELL DISTRIBUTION WIDTH 15.5 % (11.5-14.5); WHITE BLOOD COUNT 11.1 X10'3 (4.5-11.0)
[2024-02-20 05:24] LABS: ALANINE AMINOTRANSFERASE 17 U/L (12-78); ALBUMIN 3.7 G/DL (3.4-5.0); ALKALINE PHOSPHATASE 79 IU/L (46-116); ANION GAP 0 (8-16); ASPARTATE AMINO TRANSFERASE 17 U/L (10-37); BILIRUBIN,TOTAL 0.3 MG/DL (0.1-1.0); BLOOD UREA NITROGEN 19 MG/DL (7-18); BUN/CREATININE RATIO 31.1 (10.0-20.0); CALCIUM 9.1 MG/DL (8.5-10.1); CHLORIDE 96 MMOL/L (99-107); CREATININE 0.61 MG/DL (0.40-0.90); GLUCOSE 111 MG/DL (70-104); POTASSIUM 4.8 MMOL/L (3.5-5.1); SODIUM 134 MMOL/L (135-145); TOTAL CARBON DIOXIDE 38.3 MMOL/L (24-32); TOTAL PROTEIN 7.4 G/DL (6.4-8.2); eCRCL 86 ML/MIN; eGFR > 90 ML/MIN
[2024-02-20] MEDS: levoTHYROXINE 25mcg tablet PO SCH (07:30)
[2024-02-20] MEDS: duloxetine 30mg CAPSULE.DR PO SCH (07:31)
[2024-02-20] MEDS: Fluticasone/Umeclidin/Vilanter (Trelegy Ellipta 100-62.5-25) IH SCH (08:00)
[2024-02-20] MEDS ORDERED: PRED20TA PO (16:17)
== END 2024-02-20 11:50 | disposition home or self-care (01) | DRG 140 ==
LOC: ER 10:32 → ED HOLD 13:50 → EDBEDREQSVC 02-19 09:56 → ORTHO 4S 02-19 10:45
PROVIDERS: ADMIT Internal Medicine; ATTEND Internal Medicine
DX: J44.1 Chronic obstructive pulmonary disease with (acute) exacerbation (principal); E03.9 Hypothyroidism, unspecified; F31.9 Bipolar disorder, unspecified; F17.210 Nicotine dependence, cigarettes, uncomplicated; G47.30 Sleep apnea, unspecified; G89.29 Other chronic pain; M54.9 Dorsalgia, unspecified; Z20.822 Contact with and (suspected) exposure to COVID-19; Z88.0 Allergy status to penicillin; Z99.81 Dependence on supplemental oxygen
CPT/HCPCS: 36415; 71045; 80053; 80305; 81001; 83605; 83880; 84145; 84484; 85025; 87040; 87081; 87811; 93005; 94640; 94760; 96374; 97116; 97161; 99285; G0378; J1644; J1956; J2270; J2919; J7030

== ENCOUNTER 2024-04-08 08:10 | Inpatient (IN) | payer MEDICAID ==
[2024-04-08] VITALS (11 sets, daily range): BP systolic 102–129; BP diastolic 54–76; PULSE 84–100; RESP 17–26; TEMP 97.6–98.1; O2SAT 92–98
[~2024-04-08] VITALS: Ht 157.5 cm; Wt 71.0 kg
[2024-04-08 08:30] LABS: BASOPHILS % (AUTO) 0.5 % (0-1); EOSINOPHILS # (AUTO) 0.1 X10'3 (0-0.9); EOSINOPHILS % (AUTO) 0.7 % (0-6); HEMATOCRIT 42.5 % (35.0-45.0); HEMOGLOBIN 13.8 g/dl (12.0-16.0); LYMPHOCYTES # (AUTO) 1.6 X10'3 (1.1-4.8); MEAN CORPUSCULAR HEMOGLOBIN 31.4 PG (27.0-31.0); MEAN CORPUSCULAR HGB CONC 32.4 g/dL (33.0-36.5); MEAN CORPUSCULAR VOLUME 96.9 FL (78-98); MEAN PLATELET VOLUME 8.2 FL (7.4-10.4); MONOCYTES # (AUTO) 0.5 X10'3 (0-0.9); MONOCYTES % (AUTO) 5.7 % (2-12); NEUTROPHILS % (AUTO) 76.1 % (42-75); PLATELET COUNT 241 X10'3 (140-440); RED BLOOD COUNT 4.38 X10'6 (4.20-5.60); RED CELL DISTRIBUTION WIDTH 14.5 % (11.5-14.5); WHITE BLOOD COUNT 9.2 X10'3 (4.5-11.0)
[2024-04-08 08:47] LABS: ALANINE AMINOTRANSFERASE 15 U/L (12-78); ALBUMIN 3.7 G/DL (3.4-5.0); ALBUMIN/GLOBULIN RATIO 0.9 (1.1-1.5); ALKALINE PHOSPHATASE 83 IU/L (46-116); ASPARTATE AMINO TRANSFERASE 24 U/L (10-37); BILIRUBIN,TOTAL 0.3 MG/DL (0.1-1.0); BLOOD UREA NITROGEN 8 MG/DL (7-18); BUN/CREATININE RATIO 14.5 (10.0-20.0); CALCIUM 9.2 MG/DL (8.5-10.1); CHLORIDE 97 MMOL/L (99-107); CREATININE 0.55 MG/DL (0.40-0.90); GLUCOSE 94 MG/DL (70-104); SODIUM 142 MMOL/L (135-145); TOTAL PROTEIN 7.9 G/DL (6.4-8.2); eCRCL 96 ML/MIN; eGFR > 90 ML/MIN
[2024-04-08 08:55] LABS: PRO BRAIN NATRIURETIC PEPTIDE 126 PG/ML (0-125)
[2024-04-08 09:06] LABS: ANION GAP -2 (8-16)
[2024-04-08 09:31] LABS: TOTAL CARBON DIOXIDE 46.8 MMOL/L (24-32)
[2024-04-08 10:27] LABS: ABG HCO3 47.1 mmol/L (21.0-28.0); ABG OXYGEN SATURATION 94.6 % (94.0-98.0); ABG PCO2 (T) 94.4 mmHg (32.0-45.0); ABG PH (T) 7.315 (7.350-7.450); ABG PO2 (T) 75.4 mmHg (83.0-108.0); ALLEN'S TEST POSITIVE; FCOHb 2.3 % (0.5-1.5); FHHb 5.3 % (0.0-5.0); FLOW 3 L/min; FMetHb 0.1 % (0.0-1.5); FO2Hb 92.3 % (94.0-98.0); MODE NC; PATIENT TEMPERATURE 36.8; TOTAL HEMOGLOBIN 13.8 G/dl (12.0-16.0)
[2024-04-08] MEDS ORDERED: ipratropium/albuterol 3ml nebule NEB PRN ×2 (10:30→13:00)
[2024-04-08] MEDS: methylPREDNISolone sod succ 125mg/2ml vial IV ONE (10:48)
[2024-04-08] MEDS ORDERED: SYN0.088T PO (10:54)
[2024-04-08] MEDS ORDERED: magnesium sulf-water 2g/50mL 50 ML IV PRN (10:55)
[2024-04-08] MEDS ORDERED: morphine 2 MG/ML inj. syringe IV PRN ×2 (10:55)
[2024-04-08] MEDS ORDERED: acetaminophen 325mg tablet PO PRN (10:55)
[2024-04-08] MEDS ORDERED: HYDROcodone/acetaminophen 5mg/325mg tablet PO PRN (10:55)
[2024-04-08] MEDS ORDERED: potassium Cl 20 mEq SR tablet PO PRN ×2 (10:55)
[2024-04-08] MEDS ORDERED: magnesium sulf-water 4G/100mL 100 ML IV PRN (10:55)
[2024-04-08] MEDS ORDERED: magnesium Cl slow-release 64mg tablet PO PRN (10:55)
[2024-04-08] MEDS ORDERED: potassium Cl 40MEQ/1/2NS 520ml 520 ML IV PRN (10:55)
[2024-04-08] MEDS ORDERED: ondansetron/PF 4mg/2ml inj IV PRN (10:55)
[2024-04-08] MEDS: azithromycin/NS 500mg/250ml 250 ML IV SCH (11:49)
[2024-04-08 11:58] LABS: BILIRUBIN,URINE NEGATIVE (Neg); CLARITY,URINE SLIGHTLY CLOUDY (Clear); COLOR,URINE YELLOW (Yellow); GLUCOSE, URINE NEGATIVE (Neg); KETONES,URINE NEGATIVE (Neg); LEUKOCYTE ESTERASE ,URINE NEGATIVE (Neg); NITRITES, URINE NEGATIVE (Neg); OCCULT BLOOD,URINE SMALL (Neg); PROTEIN,URINE 30 mg/dl (Neg); UROBILINOGEN,URINE 0.2 E.U/dL (0.2-1.0)
[2024-04-08 12:00] LABS: APTT 27 SECONDS (22-32); PROTHROMBIN TIME 10.2 SECONDS (9.0-12.0)
[2024-04-08] MEDS: albuterol 2.5 MG/3 ML nebule NEB SCH ×2 (12:00→16:31)
[2024-04-08 12:04] LABS: UA COLLECTION TYPE VOIDED
[2024-04-08 12:06] LABS: URINE AMPHETAMINE SCREEN NEGATIVE (Neg); URINE BARBITUATE SCREEN NEGATIVE (Neg); URINE BENZODIAZEPINES SCREEN NEGATIVE (Neg); URINE CANNABINOID SCREEN POSITIVE (Neg); URINE COCAINE SCREEN NEGATIVE (Neg); URINE METHADONE SCREEN NEGATIVE (Neg); URINE OPIATE SCREEN NEGATIVE (Neg); URINE PHENCYCLIDINE SCREEN NEGATIVE (Neg)
[2024-04-08 12:15] LABS: MUCUS STRANDS FEW /LPF (Neg); SQUAMOUS EPITHELIAL CELL,UR MANY /LPF (FEW)
[2024-04-08 12:16] LABS: FREE T4 (FREE THYROXINE) 1.15 NG/DL (0.73-1.40); THYROID STIMULATING HORMONE 12.93 ulU/ml (0.34-4.50)
[2024-04-08 12:16] LABS: AMORPHOUS URATES 2+; BACTERIA,URINE FEW /HPF (Neg); RBC,URINE 0-2 /HPF (0-2); WBC,URINE 0-4 /HPF (0-4)
[2024-04-08] MEDS: ipratropium/albuterol 3ml nebule NEB ONE (12:37)
[2024-04-08] MEDS: pantoprazole 40mg Tablet.DR PO SCH (13:28)
[2024-04-08] MEDS ORDERED: LEVO112T5 PO (13:32)
[2024-04-08] MEDS ORDERED: BUPR-561 (13:32)
[2024-04-08] MEDS ORDERED: ROSU5TAB51 PO (13:32)
[2024-04-08] MEDS: methylPREDNISolone sod succ 125mg/2ml vial IV SCH (19:37)
[2024-04-08] MEDS: heparin, porcine 5000 units/ml vial SQ SCH (19:38)
[2024-04-08] MEDS: HYDROcodone/acetaminophen 10/325mg tab PO PRN (21:12)
[2024-04-09] VITALS (24 sets, daily range): BP systolic 93–124; BP diastolic 56–80; PULSE 61–108; RESP 16–24; TEMP 97.4–98.2; O2SAT 92–98
[2024-04-09] MEDS: levoTHYROXINE 112mcg tablet PO SCH (07:00)
[2024-04-09 09:02] LABS: BASOPHILS % (AUTO) 0.1 % (0-1); EOSINOPHILS % (AUTO) 0 % (0-6); HEMATOCRIT 37.6 % (35.0-45.0); LYMPHOCYTES # (AUTO) 1.4 X10'3 (1.1-4.8); LYMPHOCYTES % (AUTO) 12.2 % (21-51); MEAN CORPUSCULAR HEMOGLOBIN 30.6 PG (27.0-31.0); MEAN CORPUSCULAR VOLUME 95.6 FL (78-98); MEAN PLATELET VOLUME 8.5 FL (7.4-10.4); MONOCYTES # (AUTO) 0.5 X10'3 (0-0.9); MONOCYTES % (AUTO) 4.2 % (2-12); NEUTROPHILS # (AUTO) 9.6 X10'3 (1.8-7.7); NEUTROPHILS % (AUTO) 83.5 % (42-75); PLATELET COUNT 232 X10'3 (140-440); RED BLOOD COUNT 3.93 X10'6 (4.20-5.60); RED CELL DISTRIBUTION WIDTH 14.1 % (11.5-14.5); WHITE BLOOD COUNT 11.5 X10'3 (4.5-11.0)
[2024-04-09 09:18] LABS: ALANINE AMINOTRANSFERASE 14 U/L (12-78); ALBUMIN 3.4 G/DL (3.4-5.0); ALBUMIN/GLOBULIN RATIO 0.9 (1.1-1.5); ALKALINE PHOSPHATASE 69 IU/L (46-116); ANION GAP -1 (8-16); ASPARTATE AMINO TRANSFERASE 15 U/L (10-37); BILIRUBIN,TOTAL 0.4 MG/DL (0.1-1.0); BLOOD UREA NITROGEN 14 MG/DL (7-18); BUN/CREATININE RATIO 29.8 (10.0-20.0); CHLORIDE 97 MMOL/L (99-107); CREATININE 0.47 MG/DL (0.40-0.90); GLUCOSE 82 MG/DL (70-104); SODIUM 139 MMOL/L (135-145); eCRCL 112 ML/MIN; eGFR > 90 ML/MIN
[2024-04-09] MEDS ORDERED: aminophylline 500mg/20ml vial IV ONE (09:20)
[2024-04-09] MEDS: aminophylline 500mg/20ml vial IV ONE ×2 (09:30→09:35)
[2024-04-09] MEDS ORDERED: aminophylline inj. 0 ML IV ONE (09:35)
[2024-04-09] MEDS: regadenoson 0.4mg/5ml syringe IV ONE (09:35)
[2024-04-09 09:38] LABS: TOTAL CARBON DIOXIDE 42.5 MMOL/L (24-32)
[2024-04-09] MEDS: CefTRIAXone 2gm/D5W 50ml BAG 50 ML IV SCH (10:58)
[2024-04-09] MEDS: acetaminophen 325mg tablet PO PRN (11:11)
[2024-04-09] MEDS: aspirin 81mg tab.chew PO ONE (16:42)
[2024-04-09] MEDS: nitroGLYCERIN 0.4mg/hour patch TD SCH (16:42)
[2024-04-09] MEDS: guaiFENesin ER 600mg tablet PO SCH (19:56)
[2024-04-10] VITALS (22 sets, daily range): BP systolic 96–126; BP diastolic 48–82; PULSE 63–104; RESP 16–19; TEMP 97.1–98.6; O2SAT 91–97
[2024-04-10 07:29] LABS: BASOPHILS % (AUTO) 0.1 % (0-1); EOSINOPHILS % (AUTO) 0 % (0-6); HEMATOCRIT 36.1 % (35.0-45.0); HEMOGLOBIN 11.9 g/dl (12.0-16.0); LYMPHOCYTES # (AUTO) 1.2 X10'3 (1.1-4.8); LYMPHOCYTES % (AUTO) 10.3 % (21-51); MEAN CORPUSCULAR HEMOGLOBIN 31.2 PG (27.0-31.0); MEAN CORPUSCULAR HGB CONC 32.9 g/dL (33.0-36.5); MEAN CORPUSCULAR VOLUME 94.7 FL (78-98); MEAN PLATELET VOLUME 8.8 FL (7.4-10.4); MONOCYTES # (AUTO) 0.5 X10'3 (0-0.9); MONOCYTES % (AUTO) 4.1 % (2-12); NEUTROPHILS # (AUTO) 10.2 X10'3 (1.8-7.7); NEUTROPHILS % (AUTO) 85.5 % (42-75); PLATELET COUNT 224 X10'3 (140-440); RED BLOOD COUNT 3.82 X10'6 (4.20-5.60); RED CELL DISTRIBUTION WIDTH 14.2 % (11.5-14.5); WHITE BLOOD COUNT 11.9 X10'3 (4.5-11.0)
[2024-04-10 08:11] LABS: HEMOGLOBIN A1C 5.2 % (4.5-6.2)
[2024-04-10 08:42] LABS: ALANINE AMINOTRANSFERASE 13 U/L (12-78); ALBUMIN 3.2 G/DL (3.4-5.0); ALBUMIN/GLOBULIN RATIO 0.9 (1.1-1.5); ALKALINE PHOSPHATASE 61 IU/L (46-116); ANION GAP 5 (8-16); ASPARTATE AMINO TRANSFERASE 10 U/L (10-37); BILIRUBIN,TOTAL 0.3 MG/DL (0.1-1.0); BLOOD UREA NITROGEN 16 MG/DL (7-18); BUN/CREATININE RATIO 33.3 (10.0-20.0); CALCIUM 8.7 MG/DL (8.5-10.1); CHLORIDE 99 MMOL/L (99-107); CHOL/HDL RATIO 2.1 (0.00-4.99); CHOLESTEROL 171 MG/DL (0-200); CREATININE 0.48 MG/DL (0.40-0.90); GLUCOSE 91 MG/DL (70-104); HDL CHOLESTEROL 80 MG/DL (35-60); LDL CHOLESTEROL 78 MG/DL (50-100); SODIUM 140 MMOL/L (135-145); TOTAL CARBON DIOXIDE 35.9 MMOL/L (24-32); TOTAL PROTEIN 6.7 G/DL (6.4-8.2); TRIGLYCERIDES 61 MG/DL (20-135); eCRCL 110 ML/MIN; eGFR > 90 ML/MIN
[2024-04-10] MEDS: BUPROPION HCL 150MG XL 24 HR 150 MG TAB PO SCH (09:18)
[2024-04-10] MEDS: aspirin 81mg, enteric-coated 1 TAB TABLET.DR PO SCH (09:18)
[2024-04-10] MEDS: atorvastatin 20mg tablet PO SCH (09:18)
[2024-04-11] VITALS (11 sets, daily range): BP systolic 118–124; BP diastolic 71–78; PULSE 65–99; RESP 16–20; TEMP 98–98.8; O2SAT 88–98
[2024-04-11 07:21] LABS: BASOPHILS % (AUTO) 0.1 % (0-1); EOSINOPHILS % (AUTO) 0 % (0-6); HEMATOCRIT 35.8 % (35.0-45.0); HEMOGLOBIN 11.8 g/dl (12.0-16.0); LYMPHOCYTES # (AUTO) 1.2 X10'3 (1.1-4.8); LYMPHOCYTES % (AUTO) 9.3 % (21-51); MEAN CORPUSCULAR HEMOGLOBIN 31.3 PG (27.0-31.0); MEAN CORPUSCULAR VOLUME 94.9 FL (78-98); MEAN PLATELET VOLUME 8.6 FL (7.4-10.4); MONOCYTES # (AUTO) 0.6 X10'3 (0-0.9); NEUTROPHILS % (AUTO) 85.6 % (42-75); PLATELET COUNT 217 X10'3 (140-440); RED BLOOD COUNT 3.77 X10'6 (4.20-5.60); RED CELL DISTRIBUTION WIDTH 14.4 % (11.5-14.5); WHITE BLOOD COUNT 12.8 X10'3 (4.5-11.0)
[2024-04-11 07:38] LABS: ALANINE AMINOTRANSFERASE 13 U/L (12-78); ALBUMIN 3.2 G/DL (3.4-5.0); ALKALINE PHOSPHATASE 59 IU/L (46-116); ANION GAP 5 (8-16); ASPARTATE AMINO TRANSFERASE 11 U/L (10-37); BILIRUBIN,TOTAL 0.3 MG/DL (0.1-1.0); BLOOD UREA NITROGEN 16 MG/DL (7-18); BUN/CREATININE RATIO 30.2 (10.0-20.0); CALCIUM 8.6 MG/DL (8.5-10.1); CHLORIDE 101 MMOL/L (99-107); CREATININE 0.53 MG/DL (0.40-0.90); GLUCOSE 92 MG/DL (70-104); SODIUM 139 MMOL/L (135-145); TOTAL PROTEIN 6.5 G/DL (6.4-8.2); eCRCL 99 ML/MIN; eGFR > 90 ML/MIN
[2024-04-11] MEDS ORDERED: PANT40TA54 PO (10:26)
[2024-04-11] MEDS ORDERED: AZIT500T9 PO (10:26)
[2024-04-11] MEDS ORDERED: PRED10TA PO (10:26)
[2024-04-11] MEDS ORDERED: CEFD300C3 PO (10:26)
[2024-04-11] MEDS ORDERED: GUAI600T45 PO (10:26)
== END 2024-04-11 14:20 | disposition home or self-care (01) | DRG 140 ==
LOC: ER 08:11 → ED HOLD 10:59 → PCU 3S 14:35
PROVIDERS: ADMIT Internal Medicine; ATTEND Internal Medicine
PROC: 4A02XM4 Measurement of Cardiac Total Activity, External Approach (ICD-10-PCS; principal; 2024-04-09)
PROC: 3E033HZ Introduction of Radioactive Substance into Peripheral Vein, Percutaneous Approach (ICD-10-PCS; 2024-04-09)
DX: J44.9 Chronic obstructive pulmonary disease, unspecified (principal); J96.01 Acute respiratory failure with hypoxia; E87.3 Alkalosis; G47.30 Sleep apnea, unspecified; G89.29 Other chronic pain; M54.9 Dorsalgia, unspecified; F17.210 Nicotine dependence, cigarettes, uncomplicated; F31.9 Bipolar disorder, unspecified; F12.90 Cannabis use, unspecified, uncomplicated; E03.9 Hypothyroidism, unspecified; Z20.822 Contact with and (suspected) exposure to COVID-19; G47.33 Obstructive sleep apnea (adult) (pediatric); I20.0 Unstable angina; Z88.0 Allergy status to penicillin; Z79.899 Other long term (current) drug therapy
CPT/HCPCS: 36415; 36600; 71045; 76536; 78452; 80053; 80061; 80305; 81001; 82803; 83036; 83880; 84439; 84443; 84484; 85018; 85025; 85610; 85651; 85730; 87081; 87502; 87503; 87811; 93005; 93017; 93306; 94640; 94664; 94668; 94760; A4615; A9500; G0378; J0280; J0456; J0696; J1644; J2785; J2919; J7040

== ENCOUNTER 2024-05-06 13:40 | Emergency (ER) | payer MEDICAID ==
[~2024-05-06] VITALS: Ht 157.5 cm; Wt 75.0 kg
[~2024-05-06 13:40] MED LIST changes: +AZIT500T9 PO; +BUPR-561; +GUAI600T45 PO; -IBUP-1985 PO; +LEVO112T5 PO; -LEVO25TA7 PO; -NICO-731 TOP; +PANT40TA54 PO; +PRED10TA PO; +ROSU5TAB51 PO
[2024-05-06] MEDS: methylPREDNISolone sod succ 125mg/2ml vial IV ONE (14:15)
[2024-05-06 14:17] LABS: BASOPHILS # (AUTO) 0.1 X10'3 (0-0.2); BASOPHILS % (AUTO) 0.6 % (0-1); EOSINOPHILS # (AUTO) 0.1 X10'3 (0-0.9); EOSINOPHILS % (AUTO) 0.8 % (0-6); HEMATOCRIT 40.1 % (35.0-45.0); HEMOGLOBIN 12.9 g/dl (12.0-16.0); LYMPHOCYTES # (AUTO) 1.4 X10'3 (1.1-4.8); LYMPHOCYTES % (AUTO) 14.4 % (21-51); MEAN CORPUSCULAR HEMOGLOBIN 31.1 PG (27.0-31.0); MEAN CORPUSCULAR HGB CONC 32.3 g/dL (33.0-36.5); MEAN CORPUSCULAR VOLUME 96.5 FL (78-98); MEAN PLATELET VOLUME 8.6 FL (7.4-10.4); MONOCYTES # (AUTO) 0.5 X10'3 (0-0.9); MONOCYTES % (AUTO) 4.7 % (2-12); NEUTROPHILS # (AUTO) 7.9 X10'3 (1.8-7.7); NEUTROPHILS % (AUTO) 79.5 % (42-75); PLATELET COUNT 239 X10'3 (140-440); RED BLOOD COUNT 4.16 X10'6 (4.20-5.60); RED CELL DISTRIBUTION WIDTH 14.6 % (11.5-14.5); WHITE BLOOD COUNT 9.9 X10'3 (4.5-11.0)
[2024-05-06 14:40] LABS: ALANINE AMINOTRANSFERASE 17 U/L (12-78); ALBUMIN 3.5 G/DL (3.4-5.0); ALBUMIN/GLOBULIN RATIO 0.9 (1.1-1.5); ALKALINE PHOSPHATASE 82 IU/L (46-116); ANION GAP 5 (8-16); ASPARTATE AMINO TRANSFERASE 10 U/L (10-37); BILIRUBIN,TOTAL 0.3 MG/DL (0.1-1.0); BLOOD UREA NITROGEN 10 MG/DL (7-18); BUN/CREATININE RATIO 24.4 (10.0-20.0); CALCIUM 9.5 MG/DL (8.5-10.1); CHLORIDE 99 MMOL/L (99-107); CREATININE 0.41 MG/DL (0.40-0.90); GLUCOSE 88 MG/DL (70-104); POTASSIUM 4.5 MMOL/L (3.5-5.1); PRO BRAIN NATRIURETIC PEPTIDE 136 PG/ML (0-125); SODIUM 144 MMOL/L (135-145); TOTAL PROTEIN 7.6 G/DL (6.4-8.2); eCRCL 128 ML/MIN; eGFR > 90 ML/MIN
[2024-05-06 14:44] LABS: TOTAL CARBON DIOXIDE 40.5 MMOL/L (24-32)
[2024-05-06] MEDS: ipratropium/albuterol 3ml nebule NEB ONE (15:14)
[2024-05-06 15:16] VITALS: PULSE 100; RESP 28; O2SAT 93
[2024-05-06 15:23] VITALS: PULSE 102; RESP 25; O2SAT 99
[2024-05-06] MEDS: normal saline 1000ml 1,000 ML IV ONE (16:11)
[2024-05-06 16:34] LABS: URINE AMPHETAMINE SCREEN NEGATIVE (Neg); URINE BARBITUATE SCREEN NEGATIVE (Neg); URINE BENZODIAZEPINES SCREEN NEGATIVE (Neg); URINE CANNABINOID SCREEN POSITIVE (Neg); URINE COCAINE SCREEN NEGATIVE (Neg); URINE METHADONE SCREEN NEGATIVE (Neg); URINE OPIATE SCREEN NEGATIVE (Neg); URINE PHENCYCLIDINE SCREEN NEGATIVE (Neg)
[2024-05-06 16:36] LABS: BILIRUBIN,URINE NEGATIVE (Neg); CLARITY,URINE SLIGHTLY CLOUDY (Clear); COLOR,URINE YELLOW (Yellow); GLUCOSE, URINE NEGATIVE (Neg); KETONES,URINE 40 mg/dl (Neg); LEUKOCYTE ESTERASE ,URINE NEGATIVE (Neg); NITRITES, URINE POSITIVE (Neg); OCCULT BLOOD,URINE TRACE-INTACT (Neg); PH,URINE 6.5 (4.8-8.0); PROTEIN,URINE NEGATIVE (Neg); UA COLLECTION TYPE CLN CATCH MIDSTREAM; UROBILINOGEN,URINE 0.2 E.U/dL (0.2-1.0)
[2024-05-06 16:44] LABS: BACTERIA,URINE 4+ /HPF (Neg); MUCUS STRANDS NONE SEEN /LPF (Neg); SQUAMOUS EPITHELIAL CELL,UR FEW /LPF (FEW); WBC CLUMPS,URINE FEW /HPF (NEGATIVE)
[2024-05-06] MEDS ORDERED: SULF1TAB49 PO (17:10)
[2024-05-06] MEDS: sulfamethoxazole/trimethoprim DS (800/160mg) tablet PO ONE (17:16)
[2024-05-06 17:20] VITALS: BP 145/76; PULSE 107; RESP 20; TEMP 98; O2SAT 98
[2024-05-09] MEDS ORDERED: SULF1TAB49 PO (10:43)
== END 2024-05-06 17:21 | disposition home or self-care (01) ==
LOC: ER 13:41
DX: J44.1 Chronic obstructive pulmonary disease with (acute) exacerbation (principal); N39.0 Urinary tract infection, site not specified; G47.30 Sleep apnea, unspecified; E07.9 Disorder of thyroid, unspecified; F32.A Depression, unspecified; G89.29 Other chronic pain; M54.9 Dorsalgia, unspecified; Z88.0 Allergy status to penicillin; Z79.52 Long term (current) use of systemic steroids; Z79.899 Other long term (current) drug therapy; Z56.0 Unemployment, unspecified; Z60.2 Problems related to living alone
CPT/HCPCS: 36415; 71045; 80053; 80305; 81001; 83605; 83880; 85025; 87077; 87088; 93005; 94640; 96361; 96374; 99291; J2919; J7030; 87186; 94760

== ENCOUNTER 2024-08-07 16:29 | Inpatient (IN) | payer MEDICAID ==
[2024-08-07] VITALS (7 sets, daily range): BP systolic 114; BP diastolic 70; PULSE 70–85; RESP 16–26; TEMP 97.6; O2SAT 91–99
[~2024-08-07] VITALS: Ht 157.5 cm; Wt 71.2 kg
[~2024-08-07 16:29] MED LIST changes: +SULF1TAB49 PO
[2024-08-07 16:48] LABS: BASOPHILS # (AUTO) 0.1 X10'3 (0-0.2); BASOPHILS % (AUTO) 0.7 % (0-1); EOSINOPHILS # (AUTO) 0.1 X10'3 (0-0.9); EOSINOPHILS % (AUTO) 0.9 % (0-6); HEMATOCRIT 40.6 % (35.0-45.0); HEMOGLOBIN 13.1 g/dl (12.0-16.0); LYMPHOCYTES # (AUTO) 2.5 X10'3 (1.1-4.8); LYMPHOCYTES % (AUTO) 31.6 % (21-51); MEAN CORPUSCULAR HEMOGLOBIN 29.9 PG (27.0-31.0); MEAN CORPUSCULAR HGB CONC 32.3 g/dL (33.0-36.5); MEAN CORPUSCULAR VOLUME 92.5 FL (78-98); MEAN PLATELET VOLUME 7.9 FL (7.4-10.4); MONOCYTES # (AUTO) 0.6 X10'3 (0-0.9); MONOCYTES % (AUTO) 7.4 % (2-12); NEUTROPHILS # (AUTO) 4.8 X10'3 (1.8-7.7); NEUTROPHILS % (AUTO) 59.4 % (42-75); PLATELET COUNT 201 X10'3 (140-440); RED BLOOD COUNT 4.39 X10'6 (4.20-5.60); RED CELL DISTRIBUTION WIDTH 16.1 % (11.5-14.5); WHITE BLOOD COUNT 8.1 X10'3 (4.5-11.0)
[2024-08-07] MEDS: ipratropium/albuterol 3ml nebule NEB ONE (17:04)
[2024-08-07 17:07] LABS: ALANINE AMINOTRANSFERASE 21 U/L (12-78); ALBUMIN 3.6 G/DL (3.4-5.0); ALBUMIN/GLOBULIN RATIO 0.9 (1.1-1.5); ALKALINE PHOSPHATASE 88 IU/L (46-116); ASPARTATE AMINO TRANSFERASE 16 U/L (10-37); BILIRUBIN,TOTAL 0.3 MG/DL (0.1-1.0); BLOOD UREA NITROGEN 10 MG/DL (7-18); BUN/CREATININE RATIO 15.6 (10.0-20.0); CALCIUM 8.9 MG/DL (8.5-10.1); CHLORIDE 97 MMOL/L (99-107); CREATININE 0.64 MG/DL (0.40-0.90); GLUCOSE 77 MG/DL (70-104); POTASSIUM 4.2 MMOL/L (3.5-5.1); PRO BRAIN NATRIURETIC PEPTIDE < 30 PG/ML (0-125); SODIUM 144 MMOL/L (135-145); TOTAL PROTEIN 7.5 G/DL (6.4-8.2); eCRCL 82 ML/MIN; eGFR > 90 ML/MIN
[2024-08-07 17:10] LABS: ANION GAP -3 (8-16)
[2024-08-07 17:12] LABS: TOTAL CARBON DIOXIDE > 50 MMOL/L (24-32)
[2024-08-07] MEDS: methylPREDNISolone sod succ 125mg/2ml vial IV ONE (17:16)
[2024-08-07] MEDS: magnesium sulf-water 2g/50mL 50 ML IV ONE (17:20)
[2024-08-07 17:30] LABS: ABG BASE EXCESS 16.1 mmol/L (-2.0-3.0); ABG HCO3 45.7 mmol/L (21.0-28.0); ABG OXYGEN SATURATION 93.5 % (94.0-98.0); ABG PCO2 (T) 82.2 mmHg (32.0-45.0); ABG PH (T) 7.363 (7.350-7.450); ABG PO2 (T) 67.3 mmHg (83.0-108.0); ALLEN'S TEST POSITIVE; FLOW 3 L/min; FMetHb 0.3 % (0.0-1.5); FO2Hb 86.7 % (94.0-98.0); MODE NASAL CANNULA; TOTAL HEMOGLOBIN 13.7 G/dl (12.0-16.0)
[2024-08-07] MEDS ORDERED: magnesium sulf-water 2g/50mL 50 ML IV PRN (18:10)
[2024-08-07] MEDS ORDERED: magnesium sulf-water 4G/100mL 100 ML IV PRN (18:10)
[2024-08-07] MEDS ORDERED: magnesium hydroxide 30ml (MOM) UD suspension PO PRN (18:10)
[2024-08-07] MEDS ORDERED: mag hydrox/Alum hydrox/simeth 30ml oral suspension PO PRN (18:10)
[2024-08-07] MEDS ORDERED: morphine 2 MG/ML inj. syringe IV PRN ×2 (18:10)
[2024-08-07] MEDS ORDERED: potassium Cl 40MEQ/1/2NS 520ml 520 ML IV PRN (18:10)
[2024-08-07] MEDS ORDERED: HYDROmorphone/PF 0.2 MG/ML SYRINGE IV PRN (18:10)
[2024-08-07] MEDS ORDERED: HYDROcodone/acetaminophen 10/325mg tab PO PRN (18:10)
[2024-08-07] MEDS ORDERED: potassium Cl 20 mEq SR tablet PO PRN ×2 (18:10)
[2024-08-07] MEDS ORDERED: ondansetron/PF 4mg/2ml inj IV PRN (18:10)
[2024-08-07] MEDS ORDERED: magnesium Cl slow-release 64mg tablet PO PRN (18:10)
[2024-08-07 18:41] LABS: APTT 31 SECONDS (22-32); PROTHROMBIN TIME 10.5 SECONDS (9.0-12.0)
[2024-08-07 18:56] LABS: HEMOGLOBIN A1C 5.2 % (4.5-6.2)
[2024-08-07 18:57] LABS: BILIRUBIN,URINE NEGATIVE (Neg); CLARITY,URINE CLOUDY (Clear); COLOR,URINE YELLOW (Yellow); GLUCOSE, URINE NEGATIVE (Neg); KETONES,URINE NEGATIVE (Neg); LEUKOCYTE ESTERASE ,URINE NEGATIVE (Neg); OCCULT BLOOD,URINE NEGATIVE (Neg); PH,URINE 7.5 (4.8-8.0); PROTEIN,URINE NEGATIVE (Neg)
[2024-08-07 19:11] LABS: NITRITES, URINE POSITIVE (Neg); UA COLLECTION TYPE CLN CATCH MIDSTREAM
[2024-08-07 19:12] LABS: BACTERIA,URINE 4+ /HPF (Neg); RBC,URINE 0-2 /HPF (0-2); SQUAMOUS EPITHELIAL CELL,UR FEW /LPF (FEW); WBC,URINE 0-4 /HPF (0-4)
[2024-08-07] MEDS: ipratropium/albuterol 3ml nebule NEB SCH (19:12)
[2024-08-07 19:13] LABS: AMORPHOUS PHOSPHATES 2+
[2024-08-07 19:20] LABS: URINE AMPHETAMINE SCREEN NEGATIVE (Neg); URINE BARBITUATE SCREEN NEGATIVE (Neg); URINE BENZODIAZEPINES SCREEN NEGATIVE (Neg); URINE CANNABINOID SCREEN POSITIVE (Neg); URINE COCAINE SCREEN NEGATIVE (Neg); URINE METHADONE SCREEN NEGATIVE (Neg); URINE OPIATE SCREEN NEGATIVE (Neg); URINE PHENCYCLIDINE SCREEN NEGATIVE (Neg)
[2024-08-07] MEDS: K and/or MAG REPLACEMENT MC SCH (20:00)
[2024-08-07] MEDS: docusate sod 100mg capsule PO SCH (20:00)
[2024-08-07 20:04] LABS: PRO BRAIN NATRIURETIC PEPTIDE < 30 PG/ML (0-125)
[2024-08-07] MEDS: benzonatate 100mg capsule PO SCH (20:05)
[2024-08-07] MEDS: guaiFENesin ER 600mg tablet PO SCH (20:05)
[2024-08-07] MEDS: heparin, porcine 5000 units/ml vial SQ SCH (20:06)
[2024-08-07] MEDS: nicotine 7mg patch - 24hr TD SCH (20:07)
[2024-08-07] MEDS: CefTRIAXone/D5W-Rocephin 1gm 50 ML IV SCH (20:13)
[2024-08-07] MEDS: azithromycin/NS 500mg/250ml 250 ML IV SCH (21:45)
[2024-08-07] MEDS: methylPREDNISolone sod succ/PF 40mg inj. IV SCH (21:46)
[2024-08-08] VITALS (21 sets, daily range): BP systolic 91–104; BP diastolic 54–66; PULSE 66–88; RESP 15–21; TEMP 97.3–98.2; O2SAT 90–98
[2024-08-08] MEDS: acetaminophen 325mg tablet PO PRN (03:10)
[2024-08-08 06:55] LABS: BASOPHILS % (AUTO) 0.1 % (0-1); EOSINOPHILS % (AUTO) 0 % (0-6); HEMATOCRIT 39.5 % (35.0-45.0); HEMOGLOBIN 12.8 g/dl (12.0-16.0); LYMPHOCYTES # (AUTO) 0.8 X10'3 (1.1-4.8); LYMPHOCYTES % (AUTO) 10.4 % (21-51); MEAN CORPUSCULAR HEMOGLOBIN 30.1 PG (27.0-31.0); MEAN CORPUSCULAR HGB CONC 32.5 g/dL (33.0-36.5); MEAN CORPUSCULAR VOLUME 92.8 FL (78-98); MEAN PLATELET VOLUME 8.1 FL (7.4-10.4); MONOCYTES # (AUTO) 0.1 X10'3 (0-0.9); MONOCYTES % (AUTO) 1.2 % (2-12); NEUTROPHILS # (AUTO) 6.7 X10'3 (1.8-7.7); NEUTROPHILS % (AUTO) 88.3 % (42-75); PLATELET COUNT 192 X10'3 (140-440); RED BLOOD COUNT 4.26 X10'6 (4.20-5.60); WHITE BLOOD COUNT 7.6 X10'3 (4.5-11.0)
[2024-08-08 07:20] LABS: ALANINE AMINOTRANSFERASE 19 U/L (12-78); ALBUMIN 3.4 G/DL (3.4-5.0); ALBUMIN/GLOBULIN RATIO 0.9 (1.1-1.5); ALKALINE PHOSPHATASE 82 IU/L (46-116); ANION GAP 0 (8-16); ASPARTATE AMINO TRANSFERASE 18 U/L (10-37); BILIRUBIN,TOTAL 0.3 MG/DL (0.1-1.0); BLOOD UREA NITROGEN 13 MG/DL (7-18); BUN/CREATININE RATIO 23.6 (10.0-20.0); CALCIUM 8.8 MG/DL (8.5-10.1); CHLORIDE 101 MMOL/L (99-107); CHOL/HDL RATIO 2.3 (0.00-4.99); CHOLESTEROL 207 MG/DL (0-200); CREATININE 0.55 MG/DL (0.40-0.90); GLUCOSE 113 MG/DL (70-104); HDL CHOLESTEROL 91 MG/DL (35-60); LDL CHOLESTEROL 98 MG/DL (50-100); MAGNESIUM 2.2 MG/DL (1.5-2.4); POTASSIUM 4.8 MMOL/L (3.5-5.1); SODIUM 139 MMOL/L (135-145); TOTAL CARBON DIOXIDE 37.7 MMOL/L (24-32); TOTAL PROTEIN 7.2 G/DL (6.4-8.2); TRIGLYCERIDES 34 MG/DL (20-135); eCRCL 96 ML/MIN; eGFR > 90 ML/MIN
[2024-08-08 11:59] LABS: D-DIMER < 0.19 MG/L FEU (0-0.50)
[2024-08-08] MEDS: furosemide 20 MG/2 ML vial IV SCH (12:01)
[2024-08-08] MEDS: HYDROcodone/acetaminophen 5mg/325mg tablet PO PRN (20:00)
[2024-08-09] VITALS (9 sets, daily range): BP systolic 91–97; BP diastolic 53–60; PULSE 56–85; RESP 16–24; TEMP 96.8–98.3; O2SAT 92–97
[2024-08-09 06:44] LABS: BASOPHILS % (AUTO) 0.1 % (0-1); EOSINOPHILS % (AUTO) 0 % (0-6); HEMATOCRIT 38.9 % (35.0-45.0); HEMOGLOBIN 12.6 g/dl (12.0-16.0); LYMPHOCYTES % (AUTO) 7.4 % (21-51); MEAN CORPUSCULAR HEMOGLOBIN 29.8 PG (27.0-31.0); MEAN CORPUSCULAR HGB CONC 32.4 g/dL (33.0-36.5); MEAN CORPUSCULAR VOLUME 91.8 FL (78-98); MEAN PLATELET VOLUME 8.6 FL (7.4-10.4); MONOCYTES # (AUTO) 0.4 X10'3 (0-0.9); MONOCYTES % (AUTO) 2.9 % (2-12); NEUTROPHILS # (AUTO) 12.5 X10'3 (1.8-7.7); NEUTROPHILS % (AUTO) 89.6 % (42-75); PLATELET COUNT 194 X10'3 (140-440); RED BLOOD COUNT 4.24 X10'6 (4.20-5.60); RED CELL DISTRIBUTION WIDTH 16.1 % (11.5-14.5)
[2024-08-09 07:09] LABS: ALANINE AMINOTRANSFERASE 20 U/L (12-78); ALBUMIN 3.4 G/DL (3.4-5.0); ALBUMIN/GLOBULIN RATIO 0.9 (1.1-1.5); ALKALINE PHOSPHATASE 75 IU/L (46-116); ANION GAP 5 (8-16); ASPARTATE AMINO TRANSFERASE 11 U/L (10-37); BILIRUBIN,TOTAL 0.3 MG/DL (0.1-1.0); BLOOD UREA NITROGEN 15 MG/DL (7-18); CALCIUM 8.9 MG/DL (8.5-10.1); CHLORIDE 100 MMOL/L (99-107); GLUCOSE 107 MG/DL (70-104); MAGNESIUM 1.9 MG/DL (1.5-2.4); POTASSIUM 4.4 MMOL/L (3.5-5.1); SODIUM 137 MMOL/L (135-145); TOTAL CARBON DIOXIDE 32.2 MMOL/L (24-32); TOTAL PROTEIN 7.3 G/DL (6.4-8.2); eCRCL 88 ML/MIN; eGFR > 90 ML/MIN
[2024-08-09] MEDS ORDERED: FURO-150 PO (07:48)
[2024-08-09] MEDS ORDERED: PRED10TA23 PO (07:48)
[2024-08-09] MEDS ORDERED: EMPA10TA PO (09:58)
[2024-08-09] MEDS ORDERED: LEVO-65 PO (09:59)
[2024-08-09] MEDS ORDERED: AMOX-580 PO (14:11)
== END 2024-08-09 13:07 | disposition home health service (06) | DRG 140 ==
LOC: ER 16:30 → ED HOLD 18:24 → PCU 3S 22:16
PROVIDERS: ADMIT Internal Medicine; ATTEND Internal Medicine
PROC: BW251ZZ Computerized Tomography (CT Scan) of Chest, Abdomen and Pelvis using Low Osmolar Contrast (ICD-10-PCS; principal; 2024-08-07)
DX: J44.1 Chronic obstructive pulmonary disease with (acute) exacerbation (principal); J96.21 Acute and chronic respiratory failure with hypoxia; I50.30 Unspecified diastolic (congestive) heart failure; Z99.81 Dependence on supplemental oxygen; Z20.822 Contact with and (suspected) exposure to COVID-19; G89.29 Other chronic pain; G47.33 Obstructive sleep apnea (adult) (pediatric); M54.9 Dorsalgia, unspecified; F12.90 Cannabis use, unspecified, uncomplicated; E03.9 Hypothyroidism, unspecified; J96.22 Acute and chronic respiratory failure with hypercapnia; F31.9 Bipolar disorder, unspecified; Z79.899 Other long term (current) drug therapy; Z88.0 Allergy status to penicillin
CPT/HCPCS: 36415; 36600; 71045; 71250; 71260; 74177; 80053; 80061; 80305; 81001; 82803; 83036; 83605; 83735; 83880; 84145; 84484; 85018; 85025; 85379; 85610; 85730; 87040; 87070; 87077; 87081; 87088; 87186; 87502; 87503; 87811; 93005; 93306; 94640; 94760; 96365; 96367; 96372; 96375; 96376; 97116; 97161; 97530; 99285; G0378; J0456; J0696; J1644; J1940; J2919; J7040

== ENCOUNTER 2024-08-29 13:01 | Inpatient (IN) | payer MEDICAID ==
[~2024-08-29] VITALS: Ht 157.5 cm; Wt 72.7 kg
[2024-08-29] VITALS (9 sets, daily range): BP systolic 122; BP diastolic 78; PULSE 86–99; RESP 16–30; TEMP 97.3; O2SAT 18–100
[~2024-08-29 13:01] MED LIST changes: -BUPR-561; +BUPR-726; +EMPA10TA PO; +FURO-150 PO; -PRED10TA PO; +PRED10TA23 PO; -SULF1TAB49 PO
[2024-08-29] MEDS: ipratropium/albuterol 3ml nebule NEB ONE (13:44)
[2024-08-29 14:03] LABS: BASOPHILS # (AUTO) 0.1 X10'3 (0-0.2); BASOPHILS % (AUTO) 0.5 % (0-1); EOSINOPHILS % (AUTO) 0.3 % (0-6); HEMOGLOBIN 12.3 g/dl (12.0-16.0); LYMPHOCYTES # (AUTO) 1.5 X10'3 (1.1-4.8); LYMPHOCYTES % (AUTO) 15.7 % (21-51); MEAN CORPUSCULAR HEMOGLOBIN 30.4 PG (27.0-31.0); MEAN CORPUSCULAR HGB CONC 32.5 g/dL (33.0-36.5); MEAN CORPUSCULAR VOLUME 93.6 FL (78-98); MONOCYTES # (AUTO) 0.5 X10'3 (0-0.9); MONOCYTES % (AUTO) 5.5 % (2-12); NEUTROPHILS # (AUTO) 7.6 X10'3 (1.8-7.7); PLATELET COUNT 183 X10'3 (140-440); RED BLOOD COUNT 4.06 X10'6 (4.20-5.60); RED CELL DISTRIBUTION WIDTH 15.9 % (11.5-14.5); WHITE BLOOD COUNT 9.8 X10'3 (4.5-11.0)
[2024-08-29 14:24] LABS: ALANINE AMINOTRANSFERASE 22 U/L (12-78); ALBUMIN 3.5 G/DL (3.4-5.0); ALBUMIN/GLOBULIN RATIO 1.1 (1.1-1.5); ALKALINE PHOSPHATASE 84 IU/L (46-116); ASPARTATE AMINO TRANSFERASE 16 U/L (10-37); BILIRUBIN,TOTAL 0.3 MG/DL (0.1-1.0); BLOOD UREA NITROGEN 11 MG/DL (7-18); BUN/CREATININE RATIO 23.4 (10.0-20.0); CALCIUM 8.4 MG/DL (8.5-10.1); CHLORIDE 98 MMOL/L (99-107); CREATININE 0.47 MG/DL (0.40-0.90); GLUCOSE 99 MG/DL (70-104); POTASSIUM 4.4 MMOL/L (3.5-5.1); SODIUM 140 MMOL/L (135-145); TOTAL PROTEIN 6.7 G/DL (6.4-8.2); eCRCL 112 ML/MIN; eGFR > 90 ML/MIN
[2024-08-29 14:25] LABS: ANION GAP -2 (8-16)
[2024-08-29 14:28] LABS: TOTAL CARBON DIOXIDE 44.3 MMOL/L (24-32)
[2024-08-29] MEDS: albuterol 2.5 MG/3 ML nebule NEB ONE (17:43)
[2024-08-29 17:52] LABS: BILIRUBIN,URINE NEGATIVE (Neg); CLARITY,URINE SLIGHTLY CLOUDY (Clear); COLOR,URINE YELLOW (Yellow); GLUCOSE, URINE >=1000 mg/dl (Neg); KETONES,URINE NEGATIVE (Neg); LEUKOCYTE ESTERASE ,URINE NEGATIVE (Neg); NITRITES, URINE NEGATIVE (Neg); OCCULT BLOOD,URINE TRACE-INTACT (Neg); PROTEIN,URINE NEGATIVE (Neg)
[2024-08-29 17:59] LABS: UA COLLECTION TYPE CLN CATCH MIDSTREAM
[2024-08-29 18:03] LABS: ABG BASE EXCESS 15.3 mmol/L (-2.0-3.0); ABG HCO3 45.4 mmol/L (21.0-28.0); ABG OXYGEN SATURATION 97.3 % (94.0-98.0); ABG PH (T) 7.326 (7.350-7.450); ABG PO2 (T) 98.2 mmHg (83.0-108.0); ALLEN'S TEST POSITIVE; FCOHb 2.6 % (0.5-1.5); FHHb 2.6 % (0.0-5.0); FMetHb 0.3 % (0.0-1.5); FO2Hb 94.5 % (94.0-98.0); TOTAL HEMOGLOBIN 13.1 G/dl (12.0-16.0)
[2024-08-29] MEDS: CefTRIAXone/D5W-Rocephin 1gm 50 ML IV ONE (18:30)
[2024-08-29 18:39] LABS: AMORPHOUS PHOSPHATES 4+; BACTERIA,URINE FEW /HPF (Neg); SQUAMOUS EPITHELIAL CELL,UR FEW /LPF (FEW); WBC,URINE 0-4 /HPF (0-4)
[2024-08-29] MEDS: methylPREDNISolone sod succ 125mg/2ml vial IV SCH (19:12)
[2024-08-29] MEDS ORDERED: LOSA-415 PO (19:19)
[2024-08-29] MEDS ORDERED: FLUT1BLS4 INH (19:23)
[2024-08-29] MEDS ORDERED: ACET-2119 PO (19:23)
[2024-08-29] MEDS ORDERED: IBUP-2766 PO (19:23)
[2024-08-29] MEDS ORDERED: mag hydrox/Alum hydrox/simeth 30ml oral suspension PO PRN (19:55)
[2024-08-29] MEDS ORDERED: magnesium sulf-water 2g/50mL 50 ML IV PRN (19:55)
[2024-08-29] MEDS ORDERED: HYDROmorphone inj. 0.5 MG/0.5 ML DISP.SYRIN IV PRN (19:55)
[2024-08-29] MEDS ORDERED: magnesium sulf-water 4G/100mL 100 ML IV PRN (19:55)
[2024-08-29] MEDS ORDERED: acetaminophen 650mg rectal suppository RC PRN (19:55)
[2024-08-29] MEDS ORDERED: magnesium Cl slow-release 64mg tablet PO PRN (19:55)
[2024-08-29] MEDS ORDERED: morphine 2 MG/ML inj. syringe IV PRN (19:55)
[2024-08-29] MEDS ORDERED: potassium Cl 20 mEq SR tablet PO PRN ×2 (19:55)
[2024-08-29] MEDS ORDERED: potassium Cl 40MEQ/1/2NS 520ml 520 ML IV PRN (19:55)
[2024-08-29] MEDS: guaiFENesin ER 600mg tablet PO SCH (20:00)
[2024-08-29] MEDS: K and/or MAG REPLACEMENT MC SCH (20:17)
[2024-08-29 20:26] LABS: PRO BRAIN NATRIURETIC PEPTIDE 65 PG/ML (0-125)
[2024-08-29 20:26] LABS: APTT 27 SECONDS (22-32); PROTHROMBIN TIME 10.3 SECONDS (9.0-12.0)
[2024-08-29] MEDS: benzonatate 100mg capsule PO SCH (20:35)
[2024-08-29] MEDS: docusate sod 100mg capsule PO SCH (20:35)
[2024-08-29] MEDS: heparin, porcine 5000 units/ml vial SQ SCH (20:36)
[2024-08-29] MEDS: acetaminophen 325mg tablet PO SCH (20:36)
[2024-08-29] MEDS: methylPREDNISolone sod succ/PF 40mg inj. IV SCH (20:37)
[2024-08-29] MEDS: ipratropium/albuterol 3ml nebule NEB SCH (23:46)
[2024-08-30] VITALS (24 sets, daily range): BP systolic 117–134; BP diastolic 76–85; PULSE 72–103; RESP 16–25; TEMP 97.7–98.1; O2SAT 92–98
[2024-08-30] MEDS ORDERED: albuterol 2.5 MG/3 ML nebule NEB PRN (02:00)
[2024-08-30] MEDS: acetaminophen 325mg tablet PO PRN (03:16)
[2024-08-30 06:40] LABS: BASOPHILS % (AUTO) 0.1 % (0-1); EOSINOPHILS % (AUTO) 0 % (0-6); HEMATOCRIT 41.5 % (35.0-45.0); HEMOGLOBIN 13.4 g/dl (12.0-16.0); LYMPHOCYTES # (AUTO) 0.5 X10'3 (1.1-4.8); LYMPHOCYTES % (AUTO) 8.1 % (21-51); MEAN CORPUSCULAR HEMOGLOBIN 30.1 PG (27.0-31.0); MEAN CORPUSCULAR HGB CONC 32.3 g/dL (33.0-36.5); MEAN CORPUSCULAR VOLUME 93.1 FL (78-98); MEAN PLATELET VOLUME 8.7 FL (7.4-10.4); MONOCYTES % (AUTO) 0.8 % (2-12); NEUTROPHILS # (AUTO) 5.8 X10'3 (1.8-7.7); PLATELET COUNT 187 X10'3 (140-440); RED BLOOD COUNT 4.46 X10'6 (4.20-5.60); RED CELL DISTRIBUTION WIDTH 16.1 % (11.5-14.5); WHITE BLOOD COUNT 6.4 X10'3 (4.5-11.0)
[2024-08-30 06:47] LABS: ALANINE AMINOTRANSFERASE 26 U/L (12-78); ALBUMIN 3.8 G/DL (3.4-5.0); ALBUMIN/GLOBULIN RATIO 1.1 (1.1-1.5); ALKALINE PHOSPHATASE 93 IU/L (46-116); ANION GAP 2 (8-16); ASPARTATE AMINO TRANSFERASE 10 U/L (10-37); BILIRUBIN,TOTAL 0.4 MG/DL (0.1-1.0); BLOOD UREA NITROGEN 15 MG/DL (7-18); BUN/CREATININE RATIO 27.3 (10.0-20.0); CALCIUM 9.8 MG/DL (8.5-10.1); CHLORIDE 98 MMOL/L (99-107); CREATININE 0.55 MG/DL (0.40-0.90); GLUCOSE 112 MG/DL (70-104); MAGNESIUM 2.2 MG/DL (1.5-2.4); POTASSIUM 4.8 MMOL/L (3.5-5.1); SODIUM 143 MMOL/L (135-145); TOTAL PROTEIN 7.4 G/DL (6.4-8.2); eCRCL 96 ML/MIN; eGFR > 90 ML/MIN
[2024-08-30 06:53] LABS: TOTAL CARBON DIOXIDE 42.9 MMOL/L (24-32)
[2024-08-30] MEDS: Fluticasone/Umeclidin/Vilanter (Trelegy Ellipta 100-62.5-25) IH SCH (08:00)
[2024-08-30] MEDS: duloxetine 30mg CAPSULE.DR PO SCH (08:01)
[2024-08-30] MEDS: furosemide 20MG tablet PO SCH (08:02)
[2024-08-30] MEDS: losartan 25mg tablet PO SCH (08:02)
[2024-08-30] MEDS: EMPAGLIFLOZIN 10 MG TABLET PO SCH (08:03)
[2024-08-30] MEDS: atorvastatin 20mg tablet PO SCH (08:03)
[2024-08-30] MEDS: levoTHYROXINE 112mcg tablet PO SCH (08:03)
[2024-08-30] MEDS: CefTRIAXone/D5W-Rocephin 1gm 50 ML IV SCH (08:04)
[2024-08-30] MEDS: levoFLOXACIN-Levaquin 750MG/D5 150 ML IV SCH (13:39)
[2024-08-30 13:50] LABS: FREE T4 (FREE THYROXINE) 1.2 NG/DL (0.73-1.40); THYROID STIMULATING HORMONE 2.92 ulU/ml (0.34-4.50)
[2024-08-30] MEDS: azithromycin/NS 500mg/250ml 250 ML IV SCH (16:11)
[2024-08-30] MEDS: HYDROcodone/acetaminophen 5mg/325mg tablet PO PRN (19:37)
[2024-08-31] VITALS (18 sets, daily range): BP systolic 104–123; BP diastolic 65–79; PULSE 73–108; RESP 17–28; TEMP 97.2–98.4; O2SAT 93–99
[2024-08-31 05:29] LABS: BASOPHILS % (AUTO) 0.1 % (0-1); EOSINOPHILS % (AUTO) 0 % (0-6); HEMATOCRIT 38.8 % (35.0-45.0); HEMOGLOBIN 12.7 g/dl (12.0-16.0); LYMPHOCYTES # (AUTO) 0.6 X10'3 (1.1-4.8); LYMPHOCYTES % (AUTO) 4.6 % (21-51); MEAN CORPUSCULAR HEMOGLOBIN 30.1 PG (27.0-31.0); MEAN CORPUSCULAR HGB CONC 32.8 g/dL (33.0-36.5); MEAN CORPUSCULAR VOLUME 91.9 FL (78-98); MEAN PLATELET VOLUME 8.4 FL (7.4-10.4); MONOCYTES # (AUTO) 0.5 X10'3 (0-0.9); MONOCYTES % (AUTO) 3.4 % (2-12); NEUTROPHILS # (AUTO) 12.9 X10'3 (1.8-7.7); NEUTROPHILS % (AUTO) 91.9 % (42-75); PLATELET COUNT 195 X10'3 (140-440); RED BLOOD COUNT 4.23 X10'6 (4.20-5.60); RED CELL DISTRIBUTION WIDTH 16.2 % (11.5-14.5)
[2024-08-31 05:42] LABS: ALANINE AMINOTRANSFERASE 24 U/L (12-78); ALBUMIN 3.6 G/DL (3.4-5.0); ALBUMIN/GLOBULIN RATIO 1.1 (1.1-1.5); ALKALINE PHOSPHATASE 81 IU/L (46-116); ANION GAP 4 (8-16); ASPARTATE AMINO TRANSFERASE 9 U/L (10-37); BILIRUBIN,TOTAL 0.3 MG/DL (0.1-1.0); BLOOD UREA NITROGEN 15 MG/DL (7-18); BUN/CREATININE RATIO 27.8 (10.0-20.0); CALCIUM 9.1 MG/DL (8.5-10.1); CHLORIDE 100 MMOL/L (99-107); CREATININE 0.54 MG/DL (0.40-0.90); GLUCOSE 107 MG/DL (70-104); MAGNESIUM 1.9 MG/DL (1.5-2.4); POTASSIUM 4.5 MMOL/L (3.5-5.1); SODIUM 140 MMOL/L (135-145); TOTAL CARBON DIOXIDE 36.5 MMOL/L (24-32); TOTAL PROTEIN 6.9 G/DL (6.4-8.2); eCRCL 97 ML/MIN; eGFR > 90 ML/MIN
[2024-08-31] MEDS: pantoprazole 40mg Tablet.DR PO SCH (07:42)
[2024-08-31] MEDS: ondansetron/PF 4mg/2ml inj IV PRN (09:57)
[2024-08-31] MEDS: magnesium hydroxide 30ml (MOM) UD suspension PO PRN (17:42)
[2024-08-31] MEDS: benzonatate 100mg capsule PO PRN (20:49)
[2024-09-01] VITALS (10 sets, daily range): BP systolic 105–121; BP diastolic 70–77; PULSE 64–105; RESP 14–24; TEMP 97.9–98; O2SAT 93–96
[2024-09-01 05:31] LABS: BASOPHILS % (AUTO) 0.1 % (0-1); EOSINOPHILS % (AUTO) 0 % (0-6); HEMATOCRIT 37.8 % (35.0-45.0); HEMOGLOBIN 12.3 g/dl (12.0-16.0); LYMPHOCYTES # (AUTO) 0.6 X10'3 (1.1-4.8); LYMPHOCYTES % (AUTO) 4.8 % (21-51); MEAN CORPUSCULAR HEMOGLOBIN 30.2 PG (27.0-31.0); MEAN CORPUSCULAR HGB CONC 32.5 g/dL (33.0-36.5); MEAN CORPUSCULAR VOLUME 93.1 FL (78-98); MEAN PLATELET VOLUME 8.3 FL (7.4-10.4); MONOCYTES # (AUTO) 0.2 X10'3 (0-0.9); MONOCYTES % (AUTO) 1.7 % (2-12); NEUTROPHILS # (AUTO) 12.1 X10'3 (1.8-7.7); NEUTROPHILS % (AUTO) 93.4 % (42-75); PLATELET COUNT 195 X10'3 (140-440); RED BLOOD COUNT 4.07 X10'6 (4.20-5.60); RED CELL DISTRIBUTION WIDTH 16.5 % (11.5-14.5); WHITE BLOOD COUNT 12.9 X10'3 (4.5-11.0)
[2024-09-01 05:56] LABS: ALANINE AMINOTRANSFERASE 22 U/L (12-78); ALBUMIN 3.3 G/DL (3.4-5.0); ALBUMIN/GLOBULIN RATIO 1.1 (1.1-1.5); ALKALINE PHOSPHATASE 73 IU/L (46-116); ANION GAP 3 (8-16); ASPARTATE AMINO TRANSFERASE 9 U/L (10-37); BILIRUBIN,TOTAL 0.3 MG/DL (0.1-1.0); BLOOD UREA NITROGEN 20 MG/DL (7-18); BUN/CREATININE RATIO 33.9 (10.0-20.0); CALCIUM 8.7 MG/DL (8.5-10.1); CHLORIDE 102 MMOL/L (99-107); CREATININE 0.59 MG/DL (0.40-0.90); GLUCOSE 107 MG/DL (70-104); MAGNESIUM 2.1 MG/DL (1.5-2.4); SODIUM 140 MMOL/L (135-145); TOTAL CARBON DIOXIDE 34.6 MMOL/L (24-32); TOTAL PROTEIN 6.3 G/DL (6.4-8.2); eCRCL 89 ML/MIN; eGFR > 90 ML/MIN
[2024-09-01] MEDS ORDERED: GUAI600T45 PO (08:15)
[2024-09-01] MEDS ORDERED: PRED10TA23 PO (08:15)
[2024-09-01] MEDS ORDERED: LEVO-65 PO (08:15)
== END 2024-09-01 11:40 | disposition home health service (06) | DRG 140 ==
LOC: ER 13:01 → ED HOLD 19:57 → ORTHO 4S 22:52
PROVIDERS: ADMIT Internal Medicine; ATTEND Internal Medicine
PROC: 5A09357 Assistance with Respiratory Ventilation, Less than 24 Consecutive Hours, Continuous Positive Airway Pressure (ICD-10-PCS; principal; 2024-08-30)
PROC: BW211ZZ Computerized Tomography (CT Scan) of Abdomen and Pelvis using Low Osmolar Contrast (ICD-10-PCS; 2024-08-30)
PROC: 5A09357 Assistance with Respiratory Ventilation, Less than 24 Consecutive Hours, Continuous Positive Airway Pressure (ICD-10-PCS; 2024-08-31)
PROC: 5A09357 Assistance with Respiratory Ventilation, Less than 24 Consecutive Hours, Continuous Positive Airway Pressure (ICD-10-PCS; 2024-09-01)
DX: J44.1 Chronic obstructive pulmonary disease with (acute) exacerbation (principal); J96.21 Acute and chronic respiratory failure with hypoxia; I50.42 Chronic combined systolic (congestive) and diastolic (congestive) heart failure; E03.9 Hypothyroidism, unspecified; F32.A Depression, unspecified; G47.33 Obstructive sleep apnea (adult) (pediatric); G89.29 Other chronic pain; M54.9 Dorsalgia, unspecified; J96.22 Acute and chronic respiratory failure with hypercapnia; R73.9 Hyperglycemia, unspecified; E78.5 Hyperlipidemia, unspecified; Z88.0 Allergy status to penicillin; Z79.899 Other long term (current) drug therapy
CPT/HCPCS: 36415; 36600; 71045; 74176; 80053; 81001; 82803; 83605; 83735; 83880; 84145; 84439; 84443; 85018; 85025; 85610; 85730; 87040; 87070; 87081; 93005; 94640; 94660; 94760; 96365; 96375; 97110; 97116; 97162; 99291; G0378; J0456; J0696; J1644; J1956; J2405; J2919; J7030

== ENCOUNTER 2024-09-03 14:12 | Emergency (ER) | payer MEDICAID ==
[~2024-09-03] VITALS: Ht 162.6 cm; Wt 72.7 kg
[~2024-09-03 14:12] MED LIST changes: +ACET-2119 PO; -AZIT500T9 PO; +LEVO-65 PO; +LOSA-415 PO
[2024-09-03 14:18] VITALS: TEMP 97.9
[2024-09-03 14:54] LABS: BASOPHILS % (AUTO) 0.2 % (0-1); EOSINOPHILS % (AUTO) 0.4 % (0-6); HEMATOCRIT 42.8 % (35.0-45.0); LYMPHOCYTES # (AUTO) 1.4 X10'3 (1.1-4.8); LYMPHOCYTES % (AUTO) 13.6 % (21-51); MEAN CORPUSCULAR HEMOGLOBIN 30.3 PG (27.0-31.0); MEAN CORPUSCULAR HGB CONC 32.7 g/dL (33.0-36.5); MEAN CORPUSCULAR VOLUME 92.5 FL (78-98); MEAN PLATELET VOLUME 8.1 FL (7.4-10.4); MONOCYTES # (AUTO) 0.6 X10'3 (0-0.9); MONOCYTES % (AUTO) 6.2 % (2-12); NEUTROPHILS # (AUTO) 8.3 X10'3 (1.8-7.7); NEUTROPHILS % (AUTO) 79.6 % (42-75); PLATELET COUNT 212 X10'3 (140-440); RED BLOOD COUNT 4.62 X10'6 (4.20-5.60); RED CELL DISTRIBUTION WIDTH 17.3 % (11.5-14.5); WHITE BLOOD COUNT 10.4 X10'3 (4.5-11.0)
[2024-09-03 15:24] LABS: ALANINE AMINOTRANSFERASE 25 U/L (12-78); ALBUMIN 3.5 G/DL (3.4-5.0); ALBUMIN/GLOBULIN RATIO 1.1 (1.1-1.5); ALKALINE PHOSPHATASE 84 IU/L (46-116); ANION GAP 2 (8-16); ASPARTATE AMINO TRANSFERASE 12 U/L (10-37); BILIRUBIN,TOTAL 0.3 MG/DL (0.1-1.0); BLOOD UREA NITROGEN 16 MG/DL (7-18); BUN/CREATININE RATIO 27.6 (10.0-20.0); CALCIUM 8.5 MG/DL (8.5-10.1); CHLORIDE 99 MMOL/L (99-107); CREATININE 0.58 MG/DL (0.40-0.90); GLUCOSE 88 MG/DL (70-104); POTASSIUM 4.5 MMOL/L (3.5-5.1); SODIUM 139 MMOL/L (135-145); TOTAL CARBON DIOXIDE 38.2 MMOL/L (24-32); TOTAL PROTEIN 6.8 G/DL (6.4-8.2); eCRCL 99 ML/MIN; eGFR > 90 ML/MIN
[2024-09-03 15:31] LABS: PRO BRAIN NATRIURETIC PEPTIDE 118 PG/ML (0-125)
[2024-09-03 16:47] LABS: BILIRUBIN,URINE NEGATIVE (Neg); CLARITY,URINE CLEAR (Clear); COLOR,URINE YELLOW (Yellow); GLUCOSE, URINE 500 mg/dl (Neg); KETONES,URINE NEGATIVE (Neg); LEUKOCYTE ESTERASE ,URINE NEGATIVE (Neg); NITRITES, URINE NEGATIVE (Neg); OCCULT BLOOD,URINE SMALL (Neg); PROTEIN,URINE NEGATIVE (Neg); UROBILINOGEN,URINE 0.2 E.U/dL (0.2-1.0)
[2024-09-03 16:50] LABS: UA COLLECTION TYPE CLN CATCH MIDSTREAM
[2024-09-03 16:59] VITALS: BP 123/82
[2024-09-03 17:12] LABS: BACTERIA,URINE NONE SEEN /HPF (Neg); SQUAMOUS EPITHELIAL CELL,UR FEW /LPF (FEW); TRANSITIONAL EPI CELLS,URINE FEW /HPF; WBC,URINE 0-4 /HPF (0-4)
[2024-09-03] MEDS ORDERED: FLUC150T54 PO (17:18)
[2024-09-03 18:16] VITALS: PULSE 103; RESP 25; O2SAT 98
== END 2024-09-03 18:19 | disposition home or self-care (01) ==
LOC: ER 14:12
DX: J44.9 Chronic obstructive pulmonary disease, unspecified (principal); R30.0 Dysuria; F17.200 Nicotine dependence, unspecified, uncomplicated; G47.30 Sleep apnea, unspecified; Z88.0 Allergy status to penicillin; Z88.1 Allergy status to other antibiotic agents
CPT/HCPCS: 36415; 71045; 80053; 81001; 83880; 84484; 85025; 93005; 99285

== ENCOUNTER 2024-09-05 16:01 | Inpatient (IN) | payer MEDICAID ==
[~2024-09-05] VITALS: Ht 157.5 cm; Wt 66.6 kg
[~2024-09-05 16:01] MED LIST changes: +FLUC150T54 PO
[2024-09-05 16:32] LABS: BASOPHILS % (AUTO) 0.3 % (0-1); EOSINOPHILS # (AUTO) 0.1 X10'3 (0-0.9); EOSINOPHILS % (AUTO) 0.8 % (0-6); HEMOGLOBIN 13.8 g/dl (12.0-16.0); LYMPHOCYTES # (AUTO) 1.7 X10'3 (1.1-4.8); MEAN CORPUSCULAR HGB CONC 33.7 g/dL (33.0-36.5); MEAN CORPUSCULAR VOLUME 91.9 FL (78-98); MEAN PLATELET VOLUME 8.1 FL (7.4-10.4); MONOCYTES # (AUTO) 0.7 X10'3 (0-0.9); MONOCYTES % (AUTO) 6.8 % (2-12); NEUTROPHILS # (AUTO) 8.1 X10'3 (1.8-7.7); NEUTROPHILS % (AUTO) 76.1 % (42-75); PLATELET COUNT 229 X10'3 (140-440); RED BLOOD COUNT 4.45 X10'6 (4.20-5.60); RED CELL DISTRIBUTION WIDTH 17.1 % (11.5-14.5); WHITE BLOOD COUNT 10.6 X10'3 (4.5-11.0)
[2024-09-05 16:58] LABS: ALANINE AMINOTRANSFERASE 26 U/L (12-78); ALBUMIN 3.5 G/DL (3.4-5.0); ALBUMIN/GLOBULIN RATIO 1.1 (1.1-1.5); ALKALINE PHOSPHATASE 88 IU/L (46-116); ANION GAP -1 (8-16); ASPARTATE AMINO TRANSFERASE 9 U/L (10-37); BILIRUBIN,TOTAL 0.2 MG/DL (0.1-1.0); BLOOD UREA NITROGEN 9 MG/DL (7-18); BUN/CREATININE RATIO 17.3 (10.0-20.0); CALCIUM 8.4 MG/DL (8.5-10.1); CHLORIDE 99 MMOL/L (99-107); CREATININE 0.52 MG/DL (0.40-0.90); GLUCOSE 91 MG/DL (70-104); POTASSIUM 4.2 MMOL/L (3.5-5.1); PRO BRAIN NATRIURETIC PEPTIDE 111 PG/ML (0-125); SODIUM 139 MMOL/L (135-145); TOTAL PROTEIN 6.7 G/DL (6.4-8.2); eCRCL 101 ML/MIN; eGFR > 90 ML/MIN
--- NOTE | 2024-09-05 17:02 | RADIOLOGY REPORT ---
EXAM: DI CHEST,SINGLE VIEW REASON FOR EXAM: CP TECHNIQUE: 1 view of the chest COMPARISON: DI CHEST,SINGLE VIEW on DOS: 09/03/24 FINDINGS/IMPRESSION: LUNGS: Small right-sided pleural effusion with asymmetric right-sided mid to lower hemithoracic pleur al thickening. MEDIASTINUM: Unremarkable BONES: No acute osseous abnormality OTHER: None
[2024-09-05 17:04] LABS: TOTAL CARBON DIOXIDE 40.6 MMOL/L (24-32)
--- NOTE | 2024-09-05 17:15 | Physician Documentation ---
History of Present Illness ~ Chief Complaint: Chest Pain Stated Complaint: SOB/CHEST WALL PAIN Time Seen by MD: 16:27 Primary Medical Doctor: dr dedra gipson Mode of Arrival: EMS, Stretcher HPI 53-year-old female presenting for chest pain that started about 45 minutes ago. She states that she was at home when she suddenly felt this sharp substernal chest pain. It lasted for about 10 minutes and then resolved. She got very scared however. She also became very short of breath. She has a history of congestive heart failure and is on oxygen at home. She otherwise denies any nausea, vomiting or any other associated symptoms. She states that the chest pain is now gone however her shortness of breath still does continue. She describes having difficulty taking in breaths. She has a history of COPD and CHF. Medication Reconciliation Allergies: Coded Allergies: Penicillins (Verified Allergy, Unknown, rash, 08/07/24) WAS ABLE TO TOLLERATE CEFTRIAXONE IN THE PAST Scheduled Acetaminophen (Tylenol), 500 MG PO Q4H, (Reported) Bupropion HCl (Bupropion Xl), 1 TAB DAILY, (Reported) Carvedilol (Carvedilol), 6.25 MG PO BID Duloxetine HCl (Duloxetine HCl), 1 CAP PO DAILY, (Reported) Empagliflozin (Jardiance), 1 TAB PO DAILY Fluconazole (Fluconazole), 1 TAB PO ONCE Fluticasone/Umeclidin/Vilanter (Trelegy Ellipta 100-62.5-25), 1 PUFFS DAILY, (Reported) Furosemide (Lasix), 20 MG PO DAILY Guaifenesin (Mucinex), 600 MG PO Q12H Levothyroxine Sodium (Levothyroxine Sodium), 1 TAB PO DAILY, (Reported) Losartan Potassium* (Cozaar*), 1 TAB PO DAILY, (Reported) Pantoprazole Sodium (Pantoprazole Sodium), 40 MG PO BKF Prednisone (Prednisone), 0 PO DAILY Rosuvastatin Calcium (Rosuvastatin Calcium), 1 TAB PO DAILY, (Reported) Scheduled PRN Albuterol (Albuterol), 2 PUFFS NEB TID PRN for SOB or wheezing, (Reported) Ipratropium/Albuterol Sulfate (Duoneb 2.5-0.5 Mg/3 Ml Soln), 1 VIAL NEB Q6H PRN for wheezing, (Reported) Discontinued Medications Azithromycin (Azithromycin), 1 TAB PO DAILY Fluticasone/Umeclidin/Vilanter (Trelegy Ellipta 100-62.5-25), 1 PUFFS INH DAILY, (Reported) Ibuprofen 100MG/5ML Susp* (Motrin 100 MG/5ML Susp.*), 60 ML PO Q6H, (Reported) Levofloxacin (Levofloxacin), 1 TAB PO DAILY Discontinued Reason: patient no longer taking Past Medical History Past Medical History: Congestive Heart Failure, COPD, Pneumonia, Sleep Apnea, Thyroid (unspecified), Chronic Back Pain, Bipolar, Depression Past Surgical History: other Alcohol Use: Sober Drug Use: none Lives with: Alone Lives In: Home Occupation: unemployed Review of Systems All Other Systems at this time: Reviewed and Negative Physical Exam Vital Signs: RN Vital Signs have been reviewed: Yes, Temperature: 98.5, Source: Oral, Heart Rate: 108, Respiratory Rate: 25, BP: 110/72, Pulse Oximetry: 97, Weight: 66.600 Oxygen Flow Rate: 2.0 Physical Exam I have reviewed the triage vitals. CONST: Patient looks fatigued. Appears older than stated age HENT: Head Atraumatic EYES: Pupils are equal, round and reactive to light. Normal conjunctiva NECK: Normal range of motion. Supple. CARDIO: Normal rate and regular rhythm. No murmurs, rubs, or gallops. S1, S2. PULM/CHEST: No respiratory distress. Lungs clear to auscultation. No wheeze ABD: Soft and nontender. Nondistended. Bowel sounds normal. No guarding. : Exam deferred MSK: No edema. No deformity. NEURO: Alert and oriented to person, place and time. Moving all extremities SKIN: Warm and dry. PSYCH: Normal mood and affect. Good eye contact. Progress Results/Orders Reviewed/noted all lab results: Yes Results/Orders Orders - WILNER GAUTHIER MD Page Hospitalist (09/05/24 19:07) Fill Out Med Reconciliation (09/05/24 19:07) Completed Orders - WILNER GAUTHIER MD Aspirin 81mg Chew Tablet (Aspirin 81mg C (09/05/24 19:10) Vital Signs 09/05/24 09/05/24 09/05/24 09/05/24 16:06 16:17 16:17 16:57 Temp 98.5 98.5 Pulse 107 108 Resp B/P (MAP) 121/82 110/72 (85) Pulse Ox 98 94 97 O2 Delivery Nasal Cannula* O2 Flow Rate 2.0 2 2.0 FiO2 N/A N/A 09/05/24 09/05/24 09/05/24 18:11 18:39 18:39 Temp 98.5 Pulse 100 101 Resp B/P (MAP) 138/69 (92) Pulse Ox 95 99 O2 Flow Rate 2.0 7.0 FiO2 N/A Laboratory Tests Test 09/05/24 16:14 09/05/24 18:05 09/05/24 19:04 White Blood Count 10.6 Red Blood Count 4.45 Hemoglobin 13.8 Hematocrit 41.0 Mean Corpuscular Volume 91.9 Mean Corpuscular Hemoglobin 31.0 Mean Corpuscular Hemoglobin Concent 33.7 Red Cell Distribution Width 17.1 H Platelet Count 229 Mean Platelet Volume 8.1 Neutrophils (%) (Auto) 76.1 H Lymphocytes (%) (Auto) 16.0 L Monocytes (%) (Auto) 6.8 Eosinophils (%) (Auto) 0.8 Basophils (%) (Auto) 0.3 Neutrophils # (Auto) 8.1 H Lymphocytes # (Auto) 1.7 Monocytes # (Auto) 0.7 Eosinophils # (Auto) 0.1 Basophils # (Auto) 0.0 CBC Comment D-Dimer < 0.19 D-Dimer Comment Sodium Level 139 Potassium Level 4.2 Chloride Level 99 Carbon Dioxide Level 40.6 *H Anion Gap -1 L Blood Urea Nitrogen 9 Creatinine 0.52 Estimated GFR/1.73 m2 > 90 BUN/Creatinine Ratio 17.3 Glucose Level 91 Calcium Level 8.4 L Total Bilirubin 0.2 Aspartate Amino Transf (AST/SGOT) 9 L Alanine Aminotransferase (ALT/SGPT) 26 Alkaline Phosphatase 88 Troponin I High Sensitivity 7 9 6 Troponin I High Sens Percent Delta 0 28 33 Troponin I Hi Sens Absolute Change 0 2 -3 Pro-B-Type Natriuretic Peptide 111 Total Protein 6.7 Albumin 3.5 Globulin 3.2 Albumin/Globulin Ratio 1.1 Chemistry Comments Re-Evaluation Re-Evaluation : Re-Evaluation Time: 19:10 Re-Evaluation: Improved Progress The patient is breathing better, her chest pain has resolved. She is still experiencing short and shallow breath sounds. Patient was seen and examined. Patient was given reassurance. The complain of chest pain and shortness of breath. Patient was given steroids antibiotics and signed out to me for evaluation. Patient continued to have wheezing laboratory work was obtained and has a bit concerning in addition to the chest pain which is new she then received aspirin contacted the hospitalist service who kindly a greed to admit the patient for further workup and care. CBC was within normal limits no leukocytosis. Chemistry showed some hypercarbia with a CO2 of 40.6. Troponins negative. D-dimer was negatives so pulmonary embolism is unlikely. Continuous retirement plan counselor interpretation shows sinus tachycardia heart rate 110s, abnormal, my interpretation. Pulse oximetry monitor interpretation shows oxygenation 98% on 2 L oxygen, abnormal, my interpretation. EKG/XRAY/CT/US/VASC/MRI EKG : Additional Comment EKG as interpreted by me shows sinus tachycardia with a rate of 105 beats per minute. Tracing appears paced. No significant ischemia. Normal axis Chest X-Ray : Additional Comments EXAM: DI CHEST,SINGLE VIEW REASON FOR EXAM: CP TECHNIQUE: 1 view of the chest COMPARISON: DI CHEST,SINGLE VIEW on DOS: 09/03/24 FINDINGS/IMPRESSION: LUNGS: Small right-sided pleural effusion with asymmetric right-sided mid to lower hemithoracic pleural thickening. MEDIASTINUM: Unremarkable BONES: No acute osseous abnormality OTHER: None Heart Score: Heart Score Response (Comments) Value History Slightly Suspicious 0 EKG Repolarization Disturb 1 Age 45-64 1 Risk Factors >3 or Hx ASHD 2 Troponin Normal limit 0 Total 4 Medical Decision Making Additional info obtained from: old records Differential Dx:Considerations: Include: angina, aortic dissection, chest wall pain, CHF, myocardial infarction, pericarditis, pleuritis, pancreatitis, pneumonia, pneumothorax, pulmonary embolus, other Departure Disposition: 02 SHORT TERM HOSPITAL Admitted to Inpatient Unit: yes, to hospitalist Admission Level of Care: PCU with Tele Impression: Primary Impression: COPD with hypercarbia and hypoxia Additional Impression: Chest pain Qualified Codes: R07.9 - Chest pain, unspecified Referrals: NO PRIMARY CARE PROVIDER (PCP) Prescriptions Carvedilol (Carvedilol) 6.25 Mg Tablet 6.25 MG PO BID for 30 Days, #60 TAB Prov: BRIEN DAMICO, RES 09/08/24 Education Educated: Patient Educated regarding: diagnosis Signature Scribe Signature: Scribed for Wilner Gauthier MD by Cathy David . 09/05/24 19:09 (addendum and departure) Attestation: The note accurately reflects work and decisions made by me.Wilner Gauthier MD 09/08/24 09:51 LORENA CARDONA MD Sep 05, 2024 17:15 CATHY SOMMERS Sep 05, 2024 19:11 WILNER GAUTHIER MD September 08, 2024 09:51
--- NOTE | 2024-09-05 17:31 | ELECTROCARDIOGRAPH REPORT ---
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 Wilner Gauthier Measurements Intervals [place] Rate: 105 P: 91 TX: 140 QRS: 99 QRSD: 99 T: 69 QT: 343 QTc: 454 Interpretive Statements A-V dual-paced complexes w/ some inhibition No further analysis attempted due to paced rhythm Artifact in lead(s) II,III,aVR,aVF,V1 Electronically Signed On 09-05-2024 19:01:[address] Wilner Gauthier Please click the below link to view image of tracing.
[2024-09-05] MEDS: albuterol 2.5 MG/3 ML nebule CONTNEB PRN (18:34)
[2024-09-05 18:39] VITALS: PULSE 101; RESP 26; O2SAT 99
[2024-09-05] MEDS: azithromycin/NS 500mg/250ml 250 ML IV ONE (18:54)
[2024-09-05] MEDS: methylPREDNISolone sod succ 125mg/2ml vial IV ONE (18:54)
[2024-09-05] MEDS ORDERED: magnesium sulf-water 2g/50mL 50 ML IV PRN (19:20)
[2024-09-05] MEDS ORDERED: mag hydrox/Alum hydrox/simeth 30ml oral suspension PO PRN (19:20)
[2024-09-05] MEDS ORDERED: potassium Cl 40MEQ/1/2NS 520ml 520 ML IV PRN (19:20)
[2024-09-05] MEDS ORDERED: magnesium sulf-water 4G/100mL 100 ML IV PRN (19:20)
[2024-09-05] MEDS ORDERED: ondansetron/PF 4mg/2ml inj IV PRN (19:20)
[2024-09-05] MEDS ORDERED: morphine 2 MG/ML inj. syringe IV PRN ×2 (19:20)
[2024-09-05] MEDS ORDERED: magnesium hydroxide 30ml (MOM) UD suspension PO PRN (19:20)
[2024-09-05] MEDS ORDERED: magnesium Cl slow-release 64mg tablet PO PRN (19:20)
[2024-09-05] MEDS ORDERED: potassium Cl 20 mEq SR tablet PO PRN ×2 (19:20)
[2024-09-05 19:43] VITALS: PULSE 104; RESP 16
[2024-09-05] MEDS: nitroGLYCERIN 0.4mg/hour patch TD ONE (19:45)
[2024-09-05] MEDS: aspirin 81mg tab.chew PO ONE (19:45)
[2024-09-05] MEDS: enoxaparin 40mg/0.4ml syringe SQ SCH (19:46)
[2024-09-05] MEDS: docusate sod 100mg capsule PO SCH (19:46)
[2024-09-05] MEDS ORDERED: pantoprazole 40 MG vial IV ONE (19:55)
[2024-09-05] MEDS: K and/or MAG REPLACEMENT MC SCH (20:00)
--- NOTE | 2024-09-05 20:10 | HISTORY AND PHYSICAL-Residence ---
History & Physical Providers to CC Resident Creating Document: CLEMENT BOYER CC: NAIN OWENS MD ~ History of Present Illness Primary Medical Doctor: dr dedra gipson Reason for Admit\Complaint: Shortness of breath History of Present Illness Patient is a 53-year-old female with a history of COPD, bipolar disorder, CHF, and hypothyroidism who came to the ED due to shortness of breath and chest pain. Patient reports that earlier today while she was sitting watching TV she presented with sudden 10/10 retrosternal chest pain, described as sharp/being pinched, nonradiating, with multiple episodes lasting less than 5 minutes at a time, accompanied by shortness of breath at rest and lightheadedness which happened along with the pain. She reports that she currently has similar pain but that has lasted longer than before and it is 8/10 right now. She denies fevers, chills, cough, or malaise. She did receive a breathing treatment in the ED which she reports improved her shortness of breath. Of note, patient was discharged earlier this month after being admitted for COPD exacerbation, she was discharged on p.o. antibiotics which she finished and she states she has been okay until today. Allergies: Coded Allergies: Penicillins (Verified Allergy, Unknown, rash, 08/07/24) WAS ABLE TO TOLLERATE CEFTRIAXONE IN THE PAST Home Medications Home Medications Active Fluconazole 150 Mg Tablet 1 Tab PO ONCE 7 Days 1 TAB PO QD NOW AND AGAIN IN 7DAYS Levofloxacin 500 Mg Tablet 1 Tab PO DAILY 5 Days Prednisone 10 Mg Tablet 0 PO DAILY Take 4 tabs daily x4 days, then 3 daily x4 days 2 daily x4 days 1 daily x4 days 1/2 daily x4 days then STOP Mucinex (Guaifenesin) 600 Mg Tablet.sa 600 Mg PO Q12H 5 Days Jardiance (Empagliflozin) 10 Mg Tablet 1 Tab PO DAILY 30 Days Lasix (Furosemide) 20 Mg Tablet 20 Mg PO DAILY 30 Days Pantoprazole Sodium 40 Mg Tablet.dr 40 Mg PO BKF 10 Days Reported Tylenol (Acetaminophen) 325 Mg Tablet 500 Mg PO Q4H Cozaar* (Losartan Potassium) 25 Mg Tablet 1 Tab PO DAILY 30 Days Bupropion Xl (Bupropion HCl) 150 Mg Tab.er.24h 1 Tab DAILY Rosuvastatin Calcium 5 Mg Tablet 1 Tab PO DAILY new med, still at pharmacy 04/08/24 Levothyroxine Sodium 112 Mcg Tablet 1 Tab PO DAILY Trelegy Ellipta 100-62.5-25 (Fluticasone/Umeclidin/Vilanter) 1 Each Blst.w.dev 1 Puffs DAILY Duoneb 2.5-0.5 Mg/3 Ml Soln (Ipratropium/Albuterol Sulfate) 3 Ml Ampul.neb 1 Vial NEB Q6H PRN Duloxetine HCl 60 Mg Capsule. 1 Cap PO DAILY Albuterol 17 Gm Aerosol 2 Puffs NEB TID PRN Past Medical History Past Medical History COPD Bipolar disorder CHF Hypothyroidism Past Surgical History Surgical History Comment None Family History Family History: FH: type 2 diabetes Sister Past Social History Smoking: Cigarettes (Smokes 2 packs a day) Alcohol Use: Sober Drug Use: Marijuana Lives with: Family, Alone Lives In: Home Occupation: disabled ROS ROS All systems were reviewed except for pertinent positives mentioned in HPI Constitutional: Denies: no symptoms reported, see HPI, chills, diaphoresis, fever, malaise, weakness, other Eyes: Denies: no symptoms reported, see HPI, pain, discharge, blurred vision, double vision, itching, photophobia, redness, tearing, other ENT: Denies: no symptoms reported, see HPI, ear pain, ear bleeding, ear discharge, hearing loss, ear ringing, nose pain, nose bleeding, nose congestion, nose discharge, throat pain, throat swelling, voice change, mouth pain, mouth bleeding, mouth swelling, other Respiratory: Reports: see HPI Cardiovascular: Reports: see HPI Gastrointestinal: Denies: no symptoms reported, see HPI, abdomen distended, abdominal pain, nausea, vomiting, diarrhea, constipated, melena, hematemesis, hematochezia, rectal bleeding, rectal pain, dysphagia, poor appetite, poor fluid intake, other Genitourinary: Denies: no symptoms reported, see HPI, burning, discharge, dysuria, frequency, flank pain, hematuria, incontinence, pain, decreased urine output, urgency, other Female Genitalia: Denies: no reported symptoms, see HPI, vaginal discharge, vaginal pain, pelvic pain, abnormal bleeding, dyspareunia, , other Neurological: Denies: no symptoms reported, see HPI, speech problem, headache, dizziness, fainting, tingling, left sided numbness, right sided numbness, left sided weakness, right sided weakness, problems walking, unable to move lower ext, unable to move upper ext, petit mal seizures, tonic-clonic seizures, cognitive dysfunction, other Musculoskeletal: Denies: no symptoms reported, see HPI, pain, swelling, back pain, gout, joint pain, joint swelling, muscle pain, muscle swelling, muscle stiffness, neck pain, other Integumentary: Denies: no symptoms reported, see HPI, rash, itching, lesions, lumps, bruise(s), wound(s), laceration(s), dryness, change in color, other Allergic/Immunologic: Denies: no symptoms reported, see HPI, hives, itching, frequent infections, difficulty healing, other Hematologic/Lymphatic: Denies: no symptoms reported, see HPI, anemia, blood clots, easy bleeding, easy bruising, swollen glands, other Endocrine: Denies: no symptoms reported, see HPI, excessive sweating, flushing, intolerance to cold, intolerance to heat, increased hunger, increased thrist, increased urine, unexplained weight gain, unexplained weight loss, other Psychiatric: Reports: depression, anxiety Exam Vitals: Vital Signs Date Time Temp Pulse Resp B/P (MAP) Pulse Ox O2 Delivery O2 Flow Rate FiO2 09/05/24 19:43 104 16 09/05/24 19:37 98.5 124/82 (96) 97 2.0 N/A 09/05/24 16:17 Nasal Cannula* General: General: awake, alert oriented to place, time, and person HEENT: No pallor present, no icterus, moist mucous membranes Neck: No masses and tenderness Resp: Slightly labored. Bilateral basal crackles with no wheezing Heart: Tachycardic, regular rhythm, normal S1 and S2 without murmur, rub or gallop Abdomen: Soft and non tender no organomegaly, no guarding and rigidity, bowel sounds present Neuro: No weakness in the upper and lower limb muscles, power of the muscles 5/5 bilateral upper and lower muscles, knee reflex present bilaterally. Cranial nerves intact Extremities: No cyanosis,clubbing or edema Skin: Warm and Dry. No lesions Diagnostic Data Last Recorded Lab Results: 09/05/24 1614 09/05/24 1614 Advance Care Planning Advanced Care plannin - 30 Minutes Additional Plan Patient is a 53-year-old female with a history of COPD, bipolar disorder, CHF, and hypothyroidism who came to the ED due to shortness of breath and chest pain. Admitted for evaluation and management of chest pain possibly secondary to unstable angina as well as COPD exacerbation. Will rule out pulmonary embolism. ACS, possible unstable angina Acute on chronic heart failure with reduced ejection fraction Small right pleural effusion Mild COPD exacerbation likely secondary to above Acute hypoxic respiratory failure secondary to above Respiratory acidosis Pulmonary embolism unlikely Patient with intermittent retrosternal severe chest pain at rest and shortness of breath Patient is dyspneic and tachycardic, she does have basal pulmonary crackles. No wheezing although patient had finished breathing treatment at the time of my assessment Initially on 7L of O2, now back to baseline which is 2L Heart score: 4 Troponins are normal ProBNP is unremarkable D-dimer is unremarkable EKG shows sinus tachycardia Chest x-ray shows a small right pleural effusion with some pulmonary congestion more noticeable on the right Patient does have a stress test from 04/03 which did show possible reversible ischemia. At the time cardiology recommended medical management Last echocardiogram from 08/08/2024 showed LVEF is 45-50% Patient received loading dose of aspirin, methylprednisolone and azithromycin in ED Will start nicotine patch now. Then sublingual p.r.n. In view of pleural effusion and clinical findings concerning of CHF exacerbation will start Lasix 20mg IV BID Will continue home losartan, Jardiance No beta-brittany on med rec, we will start carvedilol 6.25 mg b.i.d. No aspirin on med rec. Will start baby aspirin daily Continue DuoNebs q.4 Start prednisone 20 mg daily Will obtain new stress test in AM Bipolar disorder Hypothyroidism Continue home levothyroxine Pending completed med rec for psych meds Code Status: Full code DVT prophylaxis: Lovenox Nutrition: Heart healthy diet PT: Ordered Prognosis: Guarded Disposition: Admit to PCU with tele monitoring. Continue medical management Clement De Jesus MD Internal Medicine Resident PGY-1 Discussed with resident agree with assessment and plan spent 35 minutes in care Date of Service: Sep 05, 2024 Billing Provider: NAIN OWENS MD, LEONARDO LUIS Sep 05, 2024 20:10 NAIN OWENS MD Sep 06, 2024 03:10
[2024-09-05 20:17] LABS: D-DIMER < 0.19 MG/L FEU (0-0.50)
[2024-09-05] MEDS: carvedilol 6.25mg tablet PO SCH (20:40)
[2024-09-05] MEDS: furosemide 20 MG/2 ML vial IV SCH (20:44)
[2024-09-05] MEDS: pantoprazole 40 MG vial IV ONE (20:44)
[2024-09-05] MEDS ORDERED: metoprolol tartrate 1mg/ml inj IV PRN (20:45)
[2024-09-05] MEDS ORDERED: aminophylline 500mg/20ml vial IV PRN (20:45)
[2024-09-05] MEDS ORDERED: nitroGLYCERIN 0.4mg SUBLingual tab SL PRN (20:45)
[2024-09-05] MEDS: ipratropium/albuterol 3ml nebule NEB SCH (22:56)
[2024-09-05 22:58] VITALS: PULSE 97; RESP 20; O2SAT 93
[2024-09-05 23:00] VITALS: BP 100/67; PULSE 86; RESP 18; TEMP 98.1; O2SAT 93
[2024-09-05 23:05] VITALS: PULSE 98; RESP 18
[2024-09-06] VITALS (26 sets, daily range): BP systolic 95–123; BP diastolic 61–77; PULSE 72–107; RESP 14–35; TEMP 97.7–98.6; O2SAT 90–100
[2024-09-06] MEDS ORDERED: nitroGLYCERIN 0.4mg SUBLingual tab SL PRN (08:00)
[2024-09-06] MEDS: losartan 25mg tablet PO SCH (08:00)
[2024-09-06] MEDS: guaiFENesin ER 600mg tablet PO SCH (08:05)
[2024-09-06] MEDS: prednisone 10mg tablet PO SCH (08:05)
[2024-09-06] MEDS: duloxetine 30mg CAPSULE.DR PO SCH (08:05)
[2024-09-06] MEDS: atorvastatin 20mg tablet PO SCH (08:05)
[2024-09-06] MEDS: aspirin 81mg tab.chew PO SCH (08:05)
[2024-09-06] MEDS: pantoprazole 40mg Tablet.DR PO SCH (08:06)
[2024-09-06] MEDS: EMPAGLIFLOZIN 10 MG TABLET PO SCH (08:06)
[2024-09-06] MEDS: BUPROPION HCL 150MG XL 24 HR 150 MG TAB PO SCH (08:06)
[2024-09-06] MEDS: levoTHYROXINE 112mcg tablet PO SCH (08:06)
[2024-09-06 08:58] LABS: BASOPHILS % (AUTO) 0.3 % (0-1); EOSINOPHILS % (AUTO) 0 % (0-6); HEMATOCRIT 40.4 % (35.0-45.0); HEMOGLOBIN 13.4 g/dl (12.0-16.0); LYMPHOCYTES # (AUTO) 0.5 X10'3 (1.1-4.8); LYMPHOCYTES % (AUTO) 5.9 % (21-51); MEAN CORPUSCULAR HEMOGLOBIN 30.4 PG (27.0-31.0); MEAN CORPUSCULAR HGB CONC 33.1 g/dL (33.0-36.5); MEAN CORPUSCULAR VOLUME 91.9 FL (78-98); MEAN PLATELET VOLUME 8.8 FL (7.4-10.4); MONOCYTES # (AUTO) 0.1 X10'3 (0-0.9); MONOCYTES % (AUTO) 1.4 % (2-12); NEUTROPHILS # (AUTO) 8.3 X10'3 (1.8-7.7); NEUTROPHILS % (AUTO) 92.4 % (42-75); PLATELET COUNT 218 X10'3 (140-440); RED BLOOD COUNT 4.39 X10'6 (4.20-5.60); RED CELL DISTRIBUTION WIDTH 16.5 % (11.5-14.5)
[2024-09-06 09:32] LABS: ALANINE AMINOTRANSFERASE 21 U/L (12-78); ALBUMIN 3.5 G/DL (3.4-5.0); ALBUMIN/GLOBULIN RATIO 1.1 (1.1-1.5); ALKALINE PHOSPHATASE 81 IU/L (46-116); ANION GAP 0 (8-16); ASPARTATE AMINO TRANSFERASE 10 U/L (10-37); BILIRUBIN,TOTAL 0.4 MG/DL (0.1-1.0); BLOOD UREA NITROGEN 11 MG/DL (7-18); BUN/CREATININE RATIO 21.6 (10.0-20.0); CHLORIDE 101 MMOL/L (99-107); CREATININE 0.51 MG/DL (0.40-0.90); GLUCOSE 116 MG/DL (70-104); POTASSIUM 4.5 MMOL/L (3.5-5.1); SODIUM 139 MMOL/L (135-145); TOTAL CARBON DIOXIDE 37.6 MMOL/L (24-32); TOTAL PROTEIN 6.7 G/DL (6.4-8.2); eCRCL 103 ML/MIN; eGFR > 90 ML/MIN
[2024-09-06] MEDS: regadenoson 0.4mg/5ml syringe IV PRN (09:45)
--- NOTE | 2024-09-06 11:25 | RADIOLOGY REPORT ---
CLINICAL INFORMATION: 53 years old, Female; Unstable angina. Chest pain, shortness of breath. TECHNIQUE: 8 mCi of technetium 99m sestamibi was infused at rest. Rest SPECT imaging was obtained. R outine protocol for Lexiscan stress study was performed with 0.4 mg of Lexiscan. 32 mCi of technetium 99m sestamibi was infused. Stress SPECT imaging was obtained. COMPARISON: NM NM TISH SCAN on DOS: 04/09/24 FINDINGS: Resting heart rate of 73 BPM increased to maximum rate of 109 BPM. Resting blood pressure o f 99/66 increased to 117/72. There were no significant EKG changes. There was no chest pain. There is a small area of moderately diminished perfusion of the apical inferior segment of the left v entricle on stress only, with total perfusion defect of 6%. TID ratio is 1.08. Wall motion imaging appears normal. Calculated left ventricular ejection fraction is 72%. IMPRESSION: 1. Small area of moderately diminished perfusion in the apical inferior segment of the left ventricle , possible small area of stress-induced ischemia. 2. Left ventricular ejection fraction is 72%.
[2024-09-06] MEDS: acetaminophen 325mg tablet PO PRN (14:33)
--- NOTE | 2024-09-06 18:49 | PROGRESS NOTE- Residence ---
Progress Note - Resident Providers to CC Resident Creating Document: BRIEN DAMICO RES ~ Antibiotic Timeout Antibiotic Ordered?: No Subjective pt was seen comfortably sitting on the bed after she got her stress test, she was endorsing about her non cardiac chest pain history and she was explained to wait the cardiac stress test result and plan to get discharge if there is no abnormal result otherwise she needs the cardiology consultation. She can eat after the stress test. Objective Vital Signs Date Time Temp Pulse Resp B/P (MAP) Pulse Ox O2 Delivery O2 Flow Rate FiO2 09/06/24 15:00 97.7 102 35 115/74 (88) 94 Nasal Cannula 2.0 09/06/24 14:18 28 Result Diagram: 09/06/24 0743 09/06/24 0743 Vitals were stable at the moment. General: Well alert, well oriented, not confused, not agitated, not in acute distress, well cooperated during the physical. HEENT: Conjunctive are pink, sclerae clear, no icterus, pupil is equal in both sides, reactive to light, no ear discharge, no pharyngeal erythema or an edema, mouth and lips are moist. Neck: Supple, no JVD, no lymphadenopathy and thyromegaly. 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: No focal neurological deficits, no motor and sensory weakness in all 4 extremities, could move all 4 extremities Musculoskeletal: No joint swelling, deformities, inflammations, and no scoliosis and back tenderness Skin: No active skin lesions and rashes Coagulation Studies Laboratory Tests Test 09/05/24 16:14 D-Dimer < 0.19 MG/L FEU (0-0.50) D-Dimer Comment Counseling Services Smoking & Tobacco Cessation: 3-10 Minutes Assessment Assessment A 53-year-old female with a history of COPD, systolic CHFrEF 45-50%, MRSA in the Urine C&S, HLD, bipolar disorder, chronic back pain and Hyperglycemia with HbA1C 5.2 on 08/07/24 presented with SOB associated with atypical angina last night. Plan Plan A 53-year-old female with a history of COPD, systolic CHFrEF 45-50%, MRSA in the Urine C&S, HLD, bipolar disorder, chronic back pain and Hyperglycemia with HbA1C 5.2 on 08/07/24 presented with SOB associated with atypical angina last night. # Atypical Angina, to R/o ACS # Hx of systolic CHFrEF 45-50% # Ruled out Acute PE # Hx of HLD -underwent the Cardiac stress test today showing Small area of moderately diminished perfusion in the apical inferior segment of the left ventricle, possible small area of ischemia only on stress-induced. -She had a previous similar stress test before as per pt stating possible reversible ischemia and cardiology recommended for the medical management, and will consult Cardiology tomorrow. -started plavix starting from tomorrow. -continue medical management including metoprolol, lisinopril, jardiance, atorvastatin, and IV Lasix therapy. # Acute on chronic hypoxic respiratory failure from possible CHF # Hx of COPD -continue breathing therapy -PO Prednisone 20 mg at the morning as a last admission tapered off therapy # bipolar disorder # chronic back pain # Hyperglycemia with HbA1C 5.2 on 08/07/24 -continue home meds including levothyroxine and psych meds -med rec was done CODE STATUS: full code DVT prophylaxis: Lovenox Analgesia/sedation: Heart healthy diet Lines/tubes: Peripheral IV GI prophylaxis: Pantoprazole Nutrition: Heart healthy diet Prognosis: Guarded Disposition: Continue medical management, cardiology consultation in the morning, PT eval and DC plan. Resident MD attestation: Patient was seen and examined with attending MD, Dr. Shereen DAMICO MD Internal Medicine Resident, PGY2 [facility] Date of Service: Sep 06, 2024 Billing Provider: NEIL ESTES MD Common Visit Codes: [id number] INP/OBS CARE(HIGH) BRIEN DAMICO RES Sep 06, 2024 18:49 NEIL ESTES MD Sep 06, 2024 22:10
[2024-09-07] VITALS (19 sets, daily range): BP systolic 106–127; BP diastolic 72–95; PULSE 69–97; RESP 16–28; TEMP 97.2–98.4; O2SAT 93–99
[2024-09-07 05:49] LABS: BASOPHILS % (AUTO) 0.3 % (0-1); EOSINOPHILS % (AUTO) 0.4 % (0-6); HEMATOCRIT 39.3 % (35.0-45.0); HEMOGLOBIN 12.9 g/dl (12.0-16.0); LYMPHOCYTES # (AUTO) 2.7 X10'3 (1.1-4.8); LYMPHOCYTES % (AUTO) 21.8 % (21-51); MEAN CORPUSCULAR HEMOGLOBIN 30.5 PG (27.0-31.0); MEAN CORPUSCULAR HGB CONC 32.9 g/dL (33.0-36.5); MEAN CORPUSCULAR VOLUME 92.6 FL (78-98); MEAN PLATELET VOLUME 8.3 FL (7.4-10.4); MONOCYTES # (AUTO) 0.8 X10'3 (0-0.9); MONOCYTES % (AUTO) 6.6 % (2-12); NEUTROPHILS # (AUTO) 8.9 X10'3 (1.8-7.7); NEUTROPHILS % (AUTO) 70.9 % (42-75); PLATELET COUNT 233 X10'3 (140-440); RED BLOOD COUNT 4.24 X10'6 (4.20-5.60); RED CELL DISTRIBUTION WIDTH 16.8 % (11.5-14.5); WHITE BLOOD COUNT 12.5 X10'3 (4.5-11.0)
[2024-09-07 06:04] LABS: ALANINE AMINOTRANSFERASE 21 U/L (12-78); ALBUMIN 3.3 G/DL (3.4-5.0); ALBUMIN/GLOBULIN RATIO 1.1 (1.1-1.5); ALKALINE PHOSPHATASE 71 IU/L (46-116); ANION GAP 3 (8-16); ASPARTATE AMINO TRANSFERASE 12 U/L (10-37); BILIRUBIN,TOTAL 0.3 MG/DL (0.1-1.0); BLOOD UREA NITROGEN 20 MG/DL (7-18); BUN/CREATININE RATIO 30.3 (10.0-20.0); CALCIUM 8.9 MG/DL (8.5-10.1); CHLORIDE 98 MMOL/L (99-107); CREATININE 0.66 MG/DL (0.40-0.90); GLUCOSE 77 MG/DL (70-104); SODIUM 138 MMOL/L (135-145); TOTAL CARBON DIOXIDE 37.5 MMOL/L (24-32); TOTAL PROTEIN 6.2 G/DL (6.4-8.2); eCRCL 80 ML/MIN; eGFR > 90 ML/MIN
[2024-09-07] MEDS: clopidogrel 75mg tablet PO SCH (07:43)
[2024-09-07] MEDS ORDERED: morphine 2 MG/ML inj. syringe IV PRN (15:30)
[2024-09-07] MEDS: morphine 2 MG/ML inj. syringe IV PRN (16:33)
--- NOTE | 2024-09-07 17:08 | PROGRESS NOTE- Residence ---
Progress Note - Resident Providers to CC Resident Creating Document: BRIEN DAMICO RES ~ Antibiotic Timeout Antibiotic Ordered?: No Subjective Patient complained that she has been a little bit winded this morning with the shortness of breaths and wheezing after she went to the bathroom. She was about to be discharged this morning to follow up with the Cardiology in the outpatient setting. Objective Vital Signs Date Time Temp Pulse Resp B/P (MAP) Pulse Ox O2 Delivery O2 Flow Rate FiO2 09/07/24 16:33 16 09/07/24 14:49 95 Nasal Cannula 3.0 09/07/24 14:40 94 32 09/07/24 11:00 98.3 116/85 (95) Result Diagram: 09/07/24 0456 09/07/24 0456 Vitals were stable at the moment with pulse oximetry 94% on nasal cannula 2 L/min. General: slighlty bluish and pale face, Well alert, well oriented, not confused, not agitated, not in acute distress, well cooperated during the physical. HEENT: Conjunctive are pink, sclerae clear, no icterus, pupil is equal in both sides, reactive to light, no ear discharge, no pharyngeal erythema or an edema, mouth and lips are moist. Neck: Supple, no JVD, no lymphadenopathy and thyromegaly. Lungs:Equal air entry on both lungs, wheezing and widespread rhonchi bilaterally. 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 neurological deficits, no motor and sensory weakness in all 4 extremities, could move all 4 extremities Musculoskeletal: No joint swelling, deformities, inflammations, and no scoliosis and back tenderness Skin: No active skin lesions and rashes Coagulation Studies Laboratory Tests Test 09/05/24 16:14 D-Dimer < 0.19 MG/L FEU (0-0.50) D-Dimer Comment Assessment Assessment A 53-year-old female with a history of COPD, systolic CHFrEF 45-50%, MRSA in the Urine C&S, HLD, bipolar disorder, chronic back pain and Hyperglycemia with HbA1C 5.2 on 08/07/24 presented with SOB associated with atypical angina last night. Plan Plan # Atypical Angina, to R/o ACS # Hx of systolic CHFrEF 45-50% # Ruled out Acute PE # Hx of HLD 09/07/24: On-call precision layout worker Dr. Bebeto Elkins was requested for the consultation and recommended to follow up with him in the outpatient setting, agrees with discharge plan. -patient complained of slight chest pain after she got the movement with slight shortness of breath postponed her discharge this morning -fluid restriction 1.5 L, strict I's and O's -tomorrow discharge plan 09/06/24:-underwent the Cardiac stress test today showing Small area of moderately diminished perfusion in the apical inferior segment of the left ventricle, possible small area of ischemia only on stress-induced. -She had a previous similar stress test before as per pt stating possible reversible ischemia and cardiology recommended for the medical management, and will consult Cardiology tomorrow. -started plavix starting from tomorrow. -continue medical management including metoprolol, lisinopril, jardiance, atorvastatin, and IV Lasix therapy. # Acute on chronic hypoxic respiratory failure from possible CHF # Hx of COPD 09/07/24: Upgraded to IV prednisone 40 mg b.i.d. 09/06/24:-continue breathing therapy -PO Prednisone 20 mg at the morning as a last admission tapered off therapy # bipolar disorder # chronic back pain # Hyperglycemia with HbA1C 5.2 on 08/07/24 -continue home meds including levothyroxine and psych meds -med rec was done CODE STATUS: full code DVT prophylaxis: Lovenox Analgesia/sedation: Heart healthy diet Lines/tubes: Peripheral IV GI prophylaxis: Pantoprazole Nutrition: Heart healthy diet Prognosis: Guarded Disposition: Continue medical management, PT eval and DC plan tomorrow and follow up with the Dr. Del Cid office in outpatient setting. Resident MD attestation: Patient was seen and examined with attending MD, Dr. Shereen DAMICO MD Internal Medicine Resident, PGY2 [facility] Date of Service: Sep 07, 2024 Billing Provider: NEIL ESTES MD Common Visit Codes: [id number] INP/OBS CARE(HIGH) BRIEN DAMICO, RES Sep 07, 2024 17:08 NEIL ESTES MD Sep 07, 2024 22:06
[2024-09-07] MEDS: methylPREDNISolone sod succ/PF 40mg inj. IV SCH (19:56)
[2024-09-08] VITALS (20 sets, daily range): BP systolic 103–125; BP diastolic 71–89; PULSE 77–103; RESP 16–21; TEMP 97.1–98.6; O2SAT 93–97
[2024-09-08] MEDS: acetaminophen 325mg tablet PO PRN (00:37)
[2024-09-08 06:27] LABS: BASOPHILS % (AUTO) 0.2 % (0-1); EOSINOPHILS % (AUTO) 0 % (0-6); HEMATOCRIT 42.6 % (35.0-45.0); HEMOGLOBIN 14.1 g/dl (12.0-16.0); LYMPHOCYTES # (AUTO) 1.2 X10'3 (1.1-4.8); LYMPHOCYTES % (AUTO) 10.4 % (21-51); MEAN CORPUSCULAR HEMOGLOBIN 30.2 PG (27.0-31.0); MEAN CORPUSCULAR VOLUME 91.5 FL (78-98); MEAN PLATELET VOLUME 8.1 FL (7.4-10.4); MONOCYTES # (AUTO) 0.4 X10'3 (0-0.9); MONOCYTES % (AUTO) 3.4 % (2-12); NEUTROPHILS # (AUTO) 10.3 X10'3 (1.8-7.7); PLATELET COUNT 243 X10'3 (140-440); RED BLOOD COUNT 4.65 X10'6 (4.20-5.60); RED CELL DISTRIBUTION WIDTH 16.7 % (11.5-14.5)
[2024-09-08 06:43] LABS: ALANINE AMINOTRANSFERASE 19 U/L (12-78); ALBUMIN 3.5 G/DL (3.4-5.0); ALBUMIN/GLOBULIN RATIO 1.1 (1.1-1.5); ALKALINE PHOSPHATASE 75 IU/L (46-116); ANION GAP 4 (8-16); ASPARTATE AMINO TRANSFERASE 11 U/L (10-37); BILIRUBIN,TOTAL 0.3 MG/DL (0.1-1.0); BLOOD UREA NITROGEN 24 MG/DL (7-18); CALCIUM 9.1 MG/DL (8.5-10.1); CHLORIDE 99 MMOL/L (99-107); CREATININE 0.48 MG/DL (0.40-0.90); GLUCOSE 105 MG/DL (70-104); MAGNESIUM 2.1 MG/DL (1.5-2.4); POTASSIUM 4.2 MMOL/L (3.5-5.1); SODIUM 138 MMOL/L (135-145); TOTAL CARBON DIOXIDE 35.4 MMOL/L (24-32); TOTAL PROTEIN 6.7 G/DL (6.4-8.2); eCRCL 110 ML/MIN; eGFR > 90 ML/MIN
[2024-09-08] MEDS ORDERED: CARV6.253 PO (09:35)
--- NOTE | 2024-09-08 17:26 | DISCHARGE SUMMARY-Residence ---
Discharge Summary Providers to CC Resident Creating Document: BRIEN DAMICO, RES ~ Discharge Summary Admission Diagnosis: COPD EXACERBATION Hospital Course DATE OF ADMISSION: 09/05/2024 DATE OF DISCHARGE: 09/08/2024 Discharge Diagnosis\Comment: # Atypical Angina, ruled out ACS # Hx of systolic CHFrEF 45-50% # Ruled out Acute PE # Hx of HLD # Acute on chronic hypoxic respiratory failure from possible CHF- resolved # Hx of COPD # bipolar disorder # chronic back pain # Hyperglycemia with HbA1C 5.2 on 08/07/24 Operations\Procedures: NM cardiac stress test Consultants: Dr. Bebeto Elkins, Cardiology Complications: None Condition on DC: Stable Discharge Summary: A 53-year-old female with a history of COPD, systolic CHFrEF 45-50%, MRSA in the Urine C&S, HLD, bipolar disorder, chronic back pain and Hyperglycemia with HbA1C 5.2 on 08/07/24 presented with SOB associated with atypical angina last night. Hospital course: She was admitted to the hospital for her atypical central chest pain to ruled out acute coronary syndrome and her acute on chronic COPD exacerbation. Her serial troponin levels showed 7-9-6 with no significant EKG changes. For her chest pain, She was given loading dose of double antiplatelet therapy with p.o. aspirin and Plavix and she underwent Cardiac stress test today showing Small area of moderately diminished perfusion in the apical inferior segment of the left ventricle, possible small area of ischemia only on stress-induced on 09/06/2024. She had a previous similar stress test before as per pt stating a possible reversible ischemia and cardiology recommended for the medical management, and consulted with Cardiology Dr Bebeto Elkins who was on-call. Her free fluid intake were restricted with 1.5 L and strict I's and O's monitoring. Although her BNP was not elevated with 111, he was given IV Lasix 20 mg BID and carvedilol 6.25 mg BID, Jardiance. She was given with the ipratropium/albuterol q.4 hours as needed breathing therapy along with IV prednisone 40 mg b.i.d. for COPD exacerbation. All of her home medications were reviewed and continue ector ropriately including her levothyroxine and bipolar disorder medications. Her DVT prophylaxis was achieved with the sc Lovenox and GI prophylaxis with the pantoprazole during her stay. She was evaluated with the physical therapy during her stay before she discharged to rehab. Today, all of her last per reviewed WNL and all of her concerns and questions were addressed with the best medical knowledge before discharge. All of her vitals were stable with temp 98.2 F, FL 77/minute, RR 18/minute, BP 115/84 mm Hg, pulse oximetry 95% on nasal cannula 2 L/min. On Exam, General: slighlty bluish and pale face, Well alert, well oriented, not confused, not agitated, not in acute distress, well cooperated during the physical. HEENT: Conjunctive are pink, sclerae clear, no icterus, pupil is equal in both sides, reactive to light, no ear discharge, no pharyngeal erythema or an edema, mouth and lips are moist. Neck: Supple, no JVD, no lymphadenopathy and thyromegaly. Lungs:Equal air entry on both lungs, wheezing and widespread rhonchi bilaterally. 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 prednisone 40 mg four days, 30 mg four days, 20 mg four days, 10 mg four days, and followed by 5 mg for another four days. P.o. Lasix 20 mg daily P.o. Mucinex 600 mg b.i.d. P.o. Wellbutrin 150 mg daily P.o. Jardiance 10 mg P.o. losartan 25 mg daily P.o. pantoprazole 40 mg daily P.o. levothyroxine 112 mcg daily Albuterol/ipratropium q.4 hours PRN P.o. carvedilol 6.25 mg b.i.d. P.o. docusate 100 mg b.i.d. P.o. potassium chloride 40 mg daily P.o. ondansetron 4 mg q.6 hours p.r.n. P.o. duloxetine 60 mg daily P.o. rosuvastatin 5 mg daily Trelegy one puff daily Discharge instructions: -return to ER for the intolerable severe central chest pain, progressive shortness of breath along with chest pain and colored sputum production, and any other emergent condition etc. -follow up with PCP and Dr. Elkins Cardiology within a week after discharge for further management including chest pain and reversible cardiac stress test. -medication compliance including inhalers nebulization and CPAP usage Resident MD attestation: Patient was seen and examined with attending MD, Dr. Shereen DAMICO MD Internal Medicine Resident, PGY2 [facility] *Problems/Diagnosis: (1) Acute exacerbation of chronic obstructive airways disease Status: Resolved (2) Chest pain Status: Resolved Total Time Spent on D/C: > 30 Minutes Date of Service: September 08, 2024 Billing Provider: NEIL ESTES MD Common Visit Codes: [id number] DISCH DAY >30min Problem Qualifiers (1) Chest pain: Chest pain type: unspecified Qualified Codes: R07.9 - Chest pain, unspecified BRIEN DAMICO RES September 08, 2024 17:26 NEIL ESTES MD September 08, 2024 22:07
[2024-09-09] VITALS (9 sets, daily range): BP systolic 115–119; BP diastolic 78–84; PULSE 75–98; RESP 16–23; TEMP 97–97.8; O2SAT 92–98
[2024-09-09 07:28] LABS: BASOPHILS % (AUTO) 0.1 % (0-1); EOSINOPHILS % (AUTO) 0 % (0-6); HEMATOCRIT 42.4 % (35.0-45.0); LYMPHOCYTES # (AUTO) 1.7 X10'3 (1.1-4.8); LYMPHOCYTES % (AUTO) 12.3 % (21-51); MEAN CORPUSCULAR HEMOGLOBIN 30.2 PG (27.0-31.0); MEAN CORPUSCULAR VOLUME 91.6 FL (78-98); MONOCYTES # (AUTO) 0.6 X10'3 (0-0.9); MONOCYTES % (AUTO) 4.5 % (2-12); NEUTROPHILS # (AUTO) 11.8 X10'3 (1.8-7.7); NEUTROPHILS % (AUTO) 83.1 % (42-75); PLATELET COUNT 264 X10'3 (140-440); RED BLOOD COUNT 4.63 X10'6 (4.20-5.60); RED CELL DISTRIBUTION WIDTH 16.6 % (11.5-14.5); WHITE BLOOD COUNT 14.2 X10'3 (4.5-11.0)
[2024-09-09 08:03] LABS: ALANINE AMINOTRANSFERASE 21 U/L (12-78); ALBUMIN 3.5 G/DL (3.4-5.0); ALBUMIN/GLOBULIN RATIO 1.1 (1.1-1.5); ALKALINE PHOSPHATASE 73 IU/L (46-116); ANION GAP 3 (8-16); ASPARTATE AMINO TRANSFERASE 12 U/L (10-37); BILIRUBIN,TOTAL 0.4 MG/DL (0.1-1.0); BLOOD UREA NITROGEN 27 MG/DL (7-18); CALCIUM 9.1 MG/DL (8.5-10.1); CHLORIDE 99 MMOL/L (99-107); CREATININE 0.45 MG/DL (0.40-0.90); GLUCOSE 93 MG/DL (70-104); MAGNESIUM 2.2 MG/DL (1.5-2.4); POTASSIUM 3.8 MMOL/L (3.5-5.1); SODIUM 137 MMOL/L (135-145); TOTAL CARBON DIOXIDE 35.2 MMOL/L (24-32); TOTAL PROTEIN 6.6 G/DL (6.4-8.2); eCRCL 117 ML/MIN; eGFR > 90 ML/MIN
--- NOTE | 2024-09-09 14:27 | PROGRESS NOTE- Residence ---
Progress Note - Resident Providers to CC Resident Creating Document: BRIEN DAMICO RES ~ Antibiotic Timeout Antibiotic Ordered?: Yes Subjective Patient was about to be discharged to rehab yesterday but there was an issue with insurance acceptance by the rehab facility yesterday, the patient will be going to [facility] today. The discharge summary we will be referred to yesterday discharge summary note. Objective Vital Signs Date Time Temp Pulse Resp B/P (MAP) Pulse Ox O2 Delivery O2 Flow Rate FiO2 09/09/24 11:51 92 18 Nasal Cannula 3.0 09/09/24 11:45 93 32 09/09/24 11:00 97.8 117/84 (95) Result Diagram: 09/09/24 0615 09/09/24 0615 Vitals were stable at the moment with pulse oximetry 92% on nasal cannula 3 L/min. General: Well alert, well oriented, not confused, not agitated, not in acute distress, well cooperated during the physical. HEENT: Conjunctive are pink, sclerae clear, no icterus, pupil is equal in both sides, reactive to light, no ear discharge, no pharyngeal erythema or an edema, mouth and lips are moist. Neck: Supple, no JVD, no lymphadenopathy and thyromegaly. Lungs:Equal air entry on both lungs, wheezing and widespread rhonchi bilaterally. 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 Plan Plan # Atypical Angina, to R/o ACS # Hx of systolic CHFrEF 45-50% # Ruled out Acute PE # Hx of HLD 09/09/24: Pt dose not complain any CP SOB and deoxygenation with wheezing today. Will be discharged to [facility] today. 09/07/24: On-call extension division director Dr. Bebeto Elkins was requested for the consultation and recommended to follow up with him in the outpatient setting, agrees with discharge plan. -patient complained of slight chest pain after she got the movement with slight shortness of breath postponed her discharge this morning -fluid restriction 1.5 L, strict I's and O's -tomorrow discharge plan 09/06/24:-underwent the Cardiac stress test today showing Small area of moderately diminished perfusion in the apical inferior segment of the left ventricle, possible small area of ischemia only on stress-induced. -She had a previous similar stress test before as per pt stating possible reversible ischemia and cardiology recommended for the medical management, and will consult Cardiology tomorrow. -started plavix starting from tomorrow. -continue medical management including metoprolol, lisinopril, jardiance, atorvastatin, and IV Lasix therapy. # Acute on chronic hypoxic respiratory failure from possible CHF # Hx of COPD 09/09/24: Pt dose not complain any CP SOB and deoxygenation with wheezing today. Will be discharged to [facility] today. 09/07/24: Upgraded to IV prednisone 40 mg b.i.d. 09/06/24:-continue breathing therapy -PO Prednisone 20 mg at the morning as a last admission tapered off therapy # bipolar disorder # chronic back pain # Hyperglycemia with HbA1C 5.2 on 08/07/24 -continue home meds including levothyroxine and psych meds -med rec was done CODE STATUS: full code DVT prophylaxis: Lovenox Analgesia/sedation: Heart healthy diet Lines/tubes: Peripheral IV GI prophylaxis: Pantoprazole Nutrition: Heart healthy diet Prognosis: Guarded Disposition: Continue medical management, she Will be discharged to [facility] today and Dc summary will be referred to yesterday DC summary note. Resident MD attestation: Patient was seen and examined with attending MD, Dr. Shereen DAMICO MD Internal Medicine Resident, PGY2 [facility] Date of Service: September 09, 2024 Billing Provider: NEIL ESTES MD Common Visit Codes: [id number] INP/OBS CARE(HIGH) BRIEN DAMICO, RES September 09, 2024 14:27 NEIL ESTES MD September 09, 2024 22:12
== END 2024-09-09 14:52 | DRG 133 ==
LOC: ER 16:02 → ED HOLD 19:23 → PCU 3S 22:49
PROVIDERS: ADMIT Internal Medicine Pulmonary Disease; ATTEND Internal Medicine
PROC: 4A02XM4 Measurement of Cardiac Total Activity, External Approach (ICD-10-PCS; principal; 2024-09-06)
PROC: 3E033HZ Introduction of Radioactive Substance into Peripheral Vein, Percutaneous Approach (ICD-10-PCS; 2024-09-06)
DX: J96.21 Acute and chronic respiratory failure with hypoxia (principal); I50.23 Acute on chronic systolic (congestive) heart failure; J44.1 Chronic obstructive pulmonary disease with (acute) exacerbation; E87.29 Other acidosis; E03.9 Hypothyroidism, unspecified; I20.9 Angina pectoris, unspecified; G47.30 Sleep apnea, unspecified; F31.9 Bipolar disorder, unspecified; J96.22 Acute and chronic respiratory failure with hypercapnia; R73.9 Hyperglycemia, unspecified; G89.29 Other chronic pain; M54.89 Other dorsalgia; Z79.899 Other long term (current) drug therapy; Z88.0 Allergy status to penicillin
CPT/HCPCS: 36415; 71045; 78452; 80053; 83735; 83880; 84484; 85025; 85379; 87081; 93005; 93017; 94640; 94760; 96365; 96375; 97116; 97161; 97530; 99285; A4615; A6213; A7015; A9500; G0378; J0456; J1650; J1938; J2270; J2470; J2785; J2919; J7512